=== PATIENT | female | born 1970 | race Caucasian/White ===

== ENCOUNTER 2019-08-21 02:34 | Day surgery (SDC) | payer OTHER, SELFPAY ==
[2019-08-10 18:14] VITALS: BMI 22.5
[2019-08-21] VITALS (7 sets, daily range): BP systolic 104–120; BP diastolic 67–84; PULSE 78–87; RESP 14–18; TEMP 36.7–36.8; O2SAT 99–100; BMI 22.2
--- NOTE | 2019-08-21 08:46 | WPDHPUPDATE1 ---
History and Physical Update Update Date/Time: 08/21/19 08:46 History and Physical has been reviewed, including an updated exam of the patient. There are NO changes in the patient's condition. Risks, benefits, and alternatives have been discussed and questions answered. Patient agrees to proceed with procedure.
[2019-08-21] MEDS: LACTATED RINGERS 1,000 ML 30 ML IV CONT ×2 (12:00→15:46)
--- NOTE | 2019-08-21 12:06 | WPDANESEPPF ---
Anes - Initial Pre Proc Eval Procedure: Operation Date: 08/21/19 13:00 Proposed Procedures p Right Arthroscopic Rotator Cuff Repair, Subacromial Decompression, Possible Repair with Regeneten Collagen Augment - Trevor Feliz MD Date/Time: 08/21/19 12:06 Surgeon: Trevor Feliz MD Pre Op Diagnosis: Right Rotator Cuff Tear Patient Data Age: 49 Gender: F Height: 5 ft 5 in Weight: 61.36 kg Allergies Allergy/AdvReac Type Severity Reaction Status Date / Time No Known Allergies Allergy Verified 08/21/19 11:26 Home Medications Medication Instructions Recorded Confirmed Type clonazepam 0.5 mg tablet 0.5 mg PO DAILY PRN #30 tablet 06/22/19 08/10/19 Rx bupropion HCl 150 mg tablet,12 hr 150 mg PO BID #180 tablet 07/06/19 08/10/19 Rx sustained-release cetirizine 10 mg capsule 10 mg PO DAILY #90 cap 07/06/19 08/10/19 Rx duloxetine 60 mg capsule,delayed 120 mg PO DAILY #60 cap 07/06/19 08/10/19 Rx release omeprazole 40 mg capsule,delayed 40 mg PO DAILY #90 cap 07/06/19 08/10/19 Rx release topiramate 50 mg tablet 50 mg PO TID #270 tablet 07/06/19 08/10/19 Rx azelastine 0.05 % eye drops 1 drop EACH EYE BID #6 ml 07/10/19 08/10/19 Rx Synthroid 88 mcg tablet 88 mcg PO DAILY #30 tablet NS 07/16/19 08/10/19 Rx cefuroxime axetil 500 mg tablet 500 mg PO Q12H #14 tablet 08/17/19 Rx fluconazole 150 mg tablet 150 mg PO ONCE #2 tablet 08/17/19 Rx Patient hx anesthesia problems: none Family hx anesthesia problems: none PMFSH Past Medical History Medical History (Updated 08/21/19 @ 12:07 by Magan Coto MD) Hyperlipidemia Hypothyroidism Surgical History Surgical History History of appendectomy History of hysterectomy (~03/2018) History of tubal ligation (~03/2005) Partial tear of right rotator cuff Family History Family History Mother Patient's mother is , Onset Age: 73 Lung cancer Hypertension Hyperlipidemia Osteoporosis Sibling Patient's sister is in good health Father Hypertension CHF (congestive heart failure) Diabetes mellitus Hyperlipidemia Social History Social History Smoking status: Former smoker Second hand tobacco smoke exposure: No Smoking end date: 07/01/15 Alcohol intake: current Anes - Eval Final PreProcedure Day of Procedure 08/21/19 12:06 Patient weight: normal Heart: regular rate and rhythm Lungs: clear to auscultation Airway: Mallampati scale class 1 Neurological: alert and oriented Last oral intake: >/= 8 hours ASA classification: II Emergent: no Anesthetic plan: proceed Anesthesia type and monitoring: general ETT and standard monitoring Informed Consent: The patient's anesthetic plan and its attendant risks and benefits were discussed with the patient/family/POA. Questions were solicited and answers provided to the satisfaction of the patient/family/POA.
--- NOTE | 2019-08-21 13:21 | WPDHPUPDATE1 ---
History and Physical Update Update Date/Time: 08/21/19 13:21 History and Physical has been reviewed, including an updated exam of the patient. There are NO changes in the patient's condition. Risks, benefits, and alternatives have been discussed and questions answered. Patient agrees to proceed with procedure.
--- NOTE | 2019-08-21 13:30 | WPDANESPNB ---
Anes - Peripheral Nerve Block Date/Time: 08/21/19 13:30 I have discussed with the patient/family/POA the placement of a peripheral nerve block for post-operative pain management, including associated risks, benefits, complications, and side effects. Alternative methods of post-operative analgesia were detailed. Questions were solicited and answers provided to the satisfaction of the patient/family/POA. Time-Out: A pre-procedural Time-Out was completed immediately before starting the procedure and confirmed: Patient Identification, Site, Procedure, Patient Position and the Availability of Requisite Equipment. Clinical Indications: Acute post-operative pain management requested by the operative surgeon. Nerve Block Insertion Note Anes-nerve block: interscalene right Patient position: supine Skin prep: chlorhexidine Needle: 22 gauge, stimulating, insulated echogenic needle. Needle length: 50 mm Technique: ultrasound Injectate: bupivacaine 0.5% with epi 5 mcg/ml (30) and dexamethasone (mg) (8) Observations: tolerated well Complications: none Procedure start time:: 1315 Procedure end time:: 1325
[2019-08-21] MEDS: ceFAZolin 2 GM/D5W 50 ML 2 GM/50 ML BAG IVPB (13:34)
--- NOTE | 2019-08-21 15:52 | P.OP_ITS ---
Procedure Note - Detailed Date of procedure: 08/21/19 Pre-op diagnosis: Right Rotator Cuff Tear Post-op diagnosis: other (Partial thickness tear) Procedure performed: 1. Arthrosocopic rotator cuff repair. 2. Arthroscopic subacromial decompression. Description of procedure: High-grade partial-thickness tear with intrasubstance tearing and partial bursal side tearing. MRI confirmed 40% tear at the supraspinatus. Implants: A Regeneten medium arthroscopic bio-inductive implant was used with CUAUHTEMOC tendon anchors secured medially and peek bone anchors laterally. Anesthesia: GETA Surgeon: Trevor Feliz MD Estimated blood loss (mL): 20 Complications: None Disposition: PACU Findings: Operative detail: Preoperative antibiotics were given. An interscalene block was administered in the preoperative area. The patient was bought brought to the operating room. A general anesthetic was administered. The patient was carefully positioned in the beach chair position. The head and neck were carefully positioned. The non operative extremity was also carefully positioned. The shoulder was prepped and draped in the usual sterile fashion. Examination was performed. No abnormal findings were identified. Standard posterior and anterior arthroscopic portals were established. Inflow achieved with the arthroscopic pump using saline and epinephrine. The glenohumeral joint was carefully inspected. No intraarticular treatment was required. The glenohumeral joint showed no articular cartilage damage. The labrum, biceps, and subscapularis were normal. The supraspinatus and infraspinatus appeared normal. The axillary pouch was benign. Attention was turned to the subacromial space. A complete bursectomy was performed. The bursal side cuff showed 15% tearing. The tissue was very soft suggesting significant intrasubstance in injury. This correlated with the MRI findings. A modest acromioplasty was performed. Accessory lateral portal was used for healing. An accessory anterolateral portal was used for instrumentation. The spinal needle was placed with direct intra-articular visualization, to chelo the anterior supraspinatus. The lateral extent of the tissue graft was marked with the needle device. The tissue collagen implant was inserted. It covered the defect very nicely. Five total CUAUHTEMOC anchors were used to secure the tendon medially. Three peek bone anchors were placed laterally. The construct was very secure. The arthroscopic instruments were removed. The wounds were closed with 3-0 Monocryl subcuticular suture and steri strips. There were no comp lications. A sling was applied and the patient brought to the recovery room.
== END 2019-08-21 18:11 | disposition home or self-care (01) ==
PROVIDERS: PCP Internal Medicine; Visit Provider Orthopaedic Surgery
PROC: (CPT 29805; principal; 2019-08-21 13:00)
DX: M75.101 Unspecified rotator cuff tear or rupture of right shoulder, not specified as traumatic (principal); G89.18 Other acute postprocedural pain; E78.5 Hyperlipidemia, unspecified; E03.9 Hypothyroidism, unspecified; Z87.891 Personal history of nicotine dependence
CPT/HCPCS: 29827; 29826; 64415; A4565; J0131; J0330; J0690; J1100; J2250; J2405; J2704; J3010; J7120

== ENCOUNTER 2019-11-18 16:45 | Outpatient (CLI) | payer OTHER, SELFPAY ==
[2019-11-26 10:36] LABS: Reference Lab Test Result Negative
== END 2019-11-18 16:46 | disposition home or self-care (01) ==
PROVIDERS: PCP Internal Medicine; Visit Provider Physician Assistant
DX: Z01.818 Encounter for other preprocedural examination (principal); Z11.59 Encounter for screening for other viral diseases
CPT/HCPCS: 36415; 86769

== ENCOUNTER 2019-11-20 07:45 | Outpatient (RCR) | payer OTHER, SELFPAY ==
[2019-09-17 13:07] VITALS: BP_SYST 105
--- NOTE | 2019-09-17 14:25 | PTOPEVAL ---
Thank you for referring this patient to [facility]. Please review, sign, date and return this plan of care [place]. Pt referred to therapy following right shoulder surgery 08/21/19. She demonstrates significant limitations of right UE for motion, strength, function and pain. She requires additional skilled therapy 2-3x/wk x 8 wk. I agree with and certify that the following plan of care is medically necessary. Referring Physician Date Attending Provider: Trevor Feliz MD Referring Provider: *PT Outpatient Evaluation Start: 09/17/19 13:07 Freq: Status: Active Protocol: Document 09/17/19 13:07 CAP (Rec: 09/17/19 13:50 CAP [id number]) Therapy Assessment Status Assessment Status Assessment Status Evaluation Outpatient Past Medical History Neurological History Hx Other Neurological Disorders Yes: migraines Cardiovascular History Hx Hypercholesterolemia Yes: not on meds Respiratory History Hx Pneumonia Yes: 2019 Gastrointestinal History Hx Appendectomy Yes: 2012 Genitourinary History Hx Genitourinary Disorders No Significant History Musculoskeletal History Hx Other Musculoskeletal Disorders Yes: right rotator cuff tear 2020 Hematological History Hx Hematological Disorders No Significant History Endocrine History Hx Hypothyroidism Yes: graves disease HEENT History Hx HEENT Disorders No Significant History Integumentary History Hx Skin Disorders No Significant History Reproductive History Hx Hysterectomy Yes Psychosocial History Hx Anxiety Yes Pain History Has Past Pain Affected Your Daily Life Yes: right shoulder pain Effective Methods of Pain Control use of ibuprofen and aleve Anesthesia History Hx Anesthesia Reactions No Significant History Evaluation Information Problem Diagnosis s/p right RTC and removal of bone spur and bursa Onset 08/21/19 Cause stress on right UE Additional Evaluation Detail pt wearing sling at the start of treatment Subjective Information She states she had lawnmower Query Text:As Reported By Patient/ that she had trouble started Family during the summer that caused increased pain. Then she had a dog jump out of the car when she was holding onto the leash . Prior to surgery she was experiencing right UE pain with decreased motion, increased neck pain and right upper arm pain. She has been weaning from the sling at ho
--- NOTE | 2019-09-29 14:53 | PCPTNOTE ---
Patient called & cancelled scheduled appointment this date.
[2019-10-19 12:33] VITALS: BP_SYST 180
--- NOTE | 2019-10-20 08:46 | PTOPEVAL ---
Thank you for referring Ashley Palmer to [facility]. Please review, sign, date and return this plan of care [place]. Pt referred to therapy following rotator cuff surgery. She is progressing with her UE function, shoulder range and strength. She is progressing towards her therapy goals. Recommend additional PT 2x/wk x 4 wk to achieve therapy goals and max function. I agree with and certify that the following plan of care is medically necessary. Referring Physician Date Referring Provider: Trevor Feliz MD *PT Outpatient Evaluation Start: 09/17/19 13:07 Freq: Status: Active Protocol: Document 10/19/19 12:33 CAP (Rec: 10/19/19 13:01 CAP [email or web address]) Therapy Assessment Status Assessment Status Assessment Status Re-evaluation Evaluation Information Problem Diagnosis s/p right RTC and removal of bone spur and bursa Onset 08/21/19 Cause stress on right UE Additional Evaluation Detail She states she had lawnmower that she had trouble started during the summer that caused increased pain. Then she had a dog jump out of the car when she was holding onto the leash . Prior to surgery she was experiencing right UE pain with decreased motion, increased neck pain and right upper arm Subjective Information She reports her right shoulder Query Text:As Reported By Patient/ and arm are painful and sore Family today. She is not sure what caused the increased pain. REports the right shoulder and bicep region remain sore and tender to touch. She reports improved ability to reach with the right UE in all direction, but increased pain. Pain Assessment Timing of Pain Assessment Timing of Pain Assessment Re-assessment Pain Scale Pain Scale Used Numeric (1 - 10) Self Report Pain Assessment Right Upper Arm(s) Reported Pain Level 3 Pain Description Aching,Pulling,Tender on Palpation Pain Frequency Chronic,Continuous Lowest Pain Intensity 1 Greatest Pain Intensity 5 Pain Aggravating Factors Exercise/Activity,Prolonged Position Pain Relief Interventions Used By Heat,Ice Patient
--- NOTE | 2019-11-20 08:53 | PTOPEVAL ---
Thank you for referring Ashley Palmer to [facility]. Please review, sign, date and return this plan of care [place]. Pt has received 12 therapy visits to address impairments related to right shoulder surgery. She is progressing slowly with her UE strength, pain with daily activities, and UE function. She is progressing slowly towards therapy goals. She demonstrates poor posture awareness with impaired GH and scapular position contributing to poor Gh joint and scapulothoracic joint motion. She requires additional skilled therapy 2x/wk x 6 to improve function and achieve goals. I agree with and certify that the following plan of care is medically necessary. Referring Physician Date Attending Provider: Trevor Feliz MD Physical Therapy Re-evaluation *PT Outpatient Evaluation Start: 09/17/19 13:07 Freq: Status: Active Protocol: Document 11/20/19 07:46 CAP (Rec: 11/20/19 08:31 CAP [email or web address]) Therapy Assessment Status Assessment Status Assessment Status Re-evaluation Evaluation Information Problem Diagnosis s/p right RTC and removal of bone spur and bursa Onset 08/21/19 Cause stress on right UE Additional Evaluation Detail She states she had lawnmower that she had trouble started during the summer that caused increased pain. Then she had a dog jump out of the car when she was holding onto the leash . Prior to surgery she was experiencing right UE pain with decreased motion, increased neck pain and right upper arm Subjective Information She had a f/u with her MD that Query Text:As Reported By Patient/ states the shoulder surgery Family is intact. At work she is using a computer. She uses a christiana at home and resistance ex with 2 #. She reports cont pain the right shoulder and bicep region remain sore and tender to touch. She also has increased pain at the AC joint region and upper deltoid region. She reports increased pain and tightness with reaching behind her back. She is struggeling with the sidelying abd motion. Denies problems with reaching overhead. Pain Assessm
--- NOTE | 2019-12-08 08:18 | PCPTNOTE ---
Patient called & cancelled scheduled appointment this date due to work.
--- NOTE | 2019-12-14 13:58 | PCPTNOTE ---
Pt has cancelled her scheduled therapy appointment from 12/02-12/21/19 without rescheduling any f/u visits.
--- NOTE | 2019-12-17 08:00 | PCPTNOTE ---
Admitting Provider: Attending Provider: Trevor Feliz MD Patient:Ashley Palmer Date of :1970 Discharge Note Patient has not returned for any further treatments since 11/20/2019, therefore she will be discharged at this time. Patient?s initial visit was on 09/17/2019 13:00 and she had a total of 12 visits. The goals have been partially met. Thank you for referring this patient to [facility]. Please review, sign, date and return this discharge summary [place]. I have been updated about the patient's current status and I agree with discharge from the above service at this time. Referring Physician Date
== END 2019-12-16 23:59 | disposition home or self-care (01) ==
LOC: ANHPT 07:45
PROVIDERS: PCP Internal Medicine; Visit Provider Orthopaedic Surgery
DX: Z48.89 Encounter for other specified surgical aftercare (principal)
CPT/HCPCS: 97110; 97140; 97162

== ENCOUNTER 2020-01-14 07:36 | Outpatient (CLI) | payer OTHER, SELFPAY ==
[2020-01-14 08:04] LABS: Eosinophils Absolute Auto 0.2 K/mm3 (0-0.3); Eosinophils Percent Auto 4.6 % (0-4.4); Hemoglobin 13.4 g/dL (12.0-15.0); Immature Granulocyte Absolute 0.03 K/mm3 (0.00-0.031); Immature Granulocyte Percent A 0.7 % (0-0.5); Lymphocytes Absolute Auto 1.23 K/mm3 (0.9-3.2); Lymphocytes Percent Auto 29.8 % (18.3-44.2); Mean Corpuscular HGB Conc 32.7 g/dl (32-36); Mean Corpuscular Hemoglobin 28.6 pg (26-34); Mean Corpuscular Volume 87.6 fl (80-100); Mean Platelet Volume 8.8 fl (7.4-10.4); Monocytes Absolute Auto 0.4 K/mm3 (0.1-0.6); Monocytes Percent Auto 9.2 % (2.6-8.5); Neutrophils Absolute Auto 2.3 K/mm3 (1.3-6.7); Neutrophils Percent Auto 54.7 % (45.5-73.1); Platelet Count Result 214 k/mm3 (150-375); Red Blood Count 4.68 M/mm3 (4.2-5.4); Red Cell Distribution Width 13.2 % (11.5-14.5); White Blood Count 4.1 K/mm3 (4.5-10.0)
[2020-01-14 08:26] LABS: Alanine Aminotransferase 15 U/L (4-35); Albumin Level 4.1 g/dL (3.5-5.1); Alkaline Phosphatase 43 U/L (38-126); Aspartate Amino Transferase 24 U/L (14-36); Bilirubin,Total 0.3 mg/dL (0.2-1.3); Blood Urea Nitrogen 18 mg/dL (7-17); Calcium 8.8 mg/dL (8.4-10.2); Carbon Dioxide 26 mmol/L (22-30); Chloride 108 mmol/L (98-107); Cholesterol 240 mg/dL (0-200); Estimated Glomerular Filt Rate > 60; Glucose 85 mg/dL (65-105); HDL Direct 89 mg/dL; Potassium 4.1 mmol/L (3.4-5.0); Sodium 141 mmol/L (137-145); Triglycerides 38 mg/dL (<150)
[2020-01-14 08:32] LABS: Iron 95 ug/dL (37-170)
[2020-01-14 08:36] LABS: LDL Cholesterol Direct 122 mg/dL
[2020-01-14 08:41] LABS: Percent Iron Saturation 28 % (20-50)
[2020-01-14 09:06] LABS: Free T4 Free Thyroxine 0.94 ng/mL (0.78-2.19); Vitamin D 25 Hydroxy 27.2 ng/mL
[2020-01-14 09:32] LABS: Folic Acid 11.6 ng/mL (2.76->20)
[2020-01-17 23:12] LABS: FSH 82.4 mIU/mL (***)
[2020-01-22 14:41] LABS: Estradiol, Ultrasensitive 7 pg/mL
== END 2020-01-14 07:37 | disposition home or self-care (01) ==
PROVIDERS: PCP Internal Medicine; Visit Provider Internal Medicine
DX: R53.83 Other fatigue (principal); N95.1 Menopausal and female climacteric states; D64.9 Anemia, unspecified; E78.5 Hyperlipidemia, unspecified; E03.9 Hypothyroidism, unspecified; R79.89 Other specified abnormal findings of blood chemistry
CPT/HCPCS: 36415; 80053; 80061; 82306; 82607; 82670; 82746; 83001; 83540; 83550; 84439; 84443; 85025

== ENCOUNTER 2020-05-23 12:09 | Outpatient (CLI) | payer OTHER, SELFPAY ==
--- NOTE | ~2020-05-23 | XR_ITS ---
EXAMINATION: XR foot LT min 3V EXAM DATE: 05/23/2020 12:27 INDICATION: No known recent injury provided at this time. Pain of the left foot, 4th 5th metatarsal r egion. TECHNIQUE: Left foot dorsoplantar, lateral and oblique projections obtained and reviewed. There is n o prior study for comparison. FINDINGS: Left metatarsal bones unremarkable. No periosteal reaction or band of sclerosis to sugges t subacute stress fracture. There are no bony erosions identified. There are no acute fractures or d islocations identified. There is no subcutaneous gas. The soft tissue is unremarkable. There are no radiopaque foreign bodies. IMPRESSION: 1. Unremarkable XR foot LT min 3V exam. Reviewed, dictated and finalized at location B. STAMP OPERATOR
== END 2020-05-23 12:10 | disposition home or self-care (01) ==
PROVIDERS: PCP Internal Medicine; Visit Provider Internal Medicine
DX: M25.572 Pain in left ankle and joints of left foot (principal)
CPT/HCPCS: 73630

== ENCOUNTER 2020-05-31 08:19 | Outpatient (CLI) | payer OTHER, SELFPAY ==
[2020-05-31 08:49] LABS: Basophils Percent Auto 0.7 % (0.2-1.2); Eosinophils Absolute Auto 0.1 K/mm3 (0-0.3); Eosinophils Percent Auto 2.5 % (0-4.4); Hematocrit 34.9 % (37.0-47.0); Hemoglobin 10.8 g/dL (12.0-15.0); Immature Granulocyte Absolute 0.01 K/mm3 (0.00-0.031); Immature Granulocyte Percent A 0.2 % (0-0.5); Lymphocytes Absolute Auto 1.35 K/mm3 (0.9-3.2); Lymphocytes Percent Auto 30.9 % (18.3-44.2); Mean Corpuscular HGB Conc 30.9 g/dl (32-36); Mean Corpuscular Hemoglobin 23.9 pg (26-34); Mean Corpuscular Volume 77.2 fl (80-100); Mean Platelet Volume 9.2 fl (7.4-10.4); Monocytes Absolute Auto 0.6 K/mm3 (0.1-0.6); Monocytes Percent Auto 13.3 % (2.6-8.5); Neutrophils Absolute Auto 2.3 K/mm3 (1.3-6.7); Neutrophils Percent Auto 52.4 % (45.5-73.1); Platelet Count Result 276 k/mm3 (150-375); Red Blood Count 4.52 M/mm3 (4.2-5.4); White Blood Count 4.4 K/mm3 (4.5-10.0)
[2020-05-31 09:08] LABS: Alanine Aminotransferase 21 U/L (4-35); Albumin Level 4.1 g/dL (3.5-5.1); Alkaline Phosphatase 48 U/L (38-126); Anion Gap 4 mmol/L (8-16); Aspartate Amino Transferase 30 U/L (14-36); Bilirubin,Total 0.4 mg/dL (0.2-1.3); Blood Urea Nitrogen 18 mg/dL (7-17); Calcium 9.6 mg/dL (8.4-10.2); Carbon Dioxide 32 mmol/L (22-30); Chloride 103 mmol/L (98-107); Estimated Glomerular Filt Rate > 60; Glucose 73 mg/dL (65-105); Potassium 4.3 mmol/L (3.4-5.0); Sodium 139 mmol/L (137-145)
[2020-05-31 09:36] LABS: Thyroid Stimulating Hormone 0.148 uIU/mL (0.465-4.680)
[2020-05-31 09:45] LABS: Free T4 Free Thyroxine 1.26 ng/mL (0.78-2.19)
[2020-05-31 10:16] LABS: Erythrocyte Sedimentation Rate 15 mm/hr (0-20)
[2020-05-31 15:18] LABS: Iron 29 ug/dL (37-170)
[2020-05-31 15:27] LABS: Percent Iron Saturation 6 % (20-50)
[2020-05-31 15:32] LABS: D Dimer 0.31 ug/mL (<0.48)
== END 2020-05-31 08:20 | disposition home or self-care (01) ==
PROVIDERS: PCP Internal Medicine; Visit Provider Internal Medicine
DX: E03.9 Hypothyroidism, unspecified (principal); R51.9 Headache, unspecified; R53.83 Other fatigue; R00.2 Palpitations; D64.9 Anemia, unspecified
CPT/HCPCS: 36415; 80053; 82607; 82746; 83540; 83550; 84439; 84443; 85025; 85380; 85652; 86038; 86039

== ENCOUNTER 2020-06-14 12:04 | Outpatient (CLI) | payer OTHER, SELFPAY ==
[2020-06-14 13:23] LABS: Vitamin D 25 Hydroxy 44.5 ng/mL
== END 2020-06-14 12:05 | disposition home or self-care (01) ==
LOC: ANHLAB 12:05
PROVIDERS: PCP Internal Medicine; Visit Provider Physician Assistant
DX: E55.9 Vitamin D deficiency, unspecified (principal)
CPT/HCPCS: 36415; 82306

== ENCOUNTER 2020-07-07 11:03 | Outpatient (CLI) | payer OTHER, SELFPAY ==
--- NOTE | ~2020-07-07 | MM_ITS ---
EXAMINATION: MM screening [place] BI w dorina HISTORY: Screening mammogram TECHNIQUE: Craniocaudal and mediolateral oblique 3-D tomosynthesis images were obtained and synthetic 2-D images were generated. CAD analysis was submitted and interpreted. COMPARISON: 08/28/2017 BREAST PARENCHYMAL COMPOSITION: There are scattered areas of fibroglandular density. FINDINGS: There is no evidence of suspicious mass, calcification, or architectural distortion to sugg est malignancy in either breast. There has been no suspicious interval change. IMPRESSION: 1. No mammographic evidence of malignancy. 2. Recommend routine screening mammography in one year. BI-RADS Category 1: Negative Reviewed, dictated and finalized at location A. UCT DEVELOPER
== END 2020-07-07 11:04 | disposition home or self-care (01) ==
PROVIDERS: PCP Internal Medicine; Visit Provider Internal Medicine
DX: Z12.31 Encounter for screening mammogram for malignant neoplasm of breast (principal)
CPT/HCPCS: 77063; 77067

== ENCOUNTER 2020-08-30 12:06 | Outpatient (CLI) | payer OTHER, SELFPAY ==
--- NOTE | ~2020-08-30 | XR_ITS ---
EXAMINATION: XR hand LT min 3V DATE: 08/30/2020 12:25 INDICATION: Left hand pain. TECHNIQUE: 3 views of left hand were obtained. COMPARISON: None. FINDINGS: Bone alignment is normal. No fracture. There is mild osteoarthritis of first carpometacarpa l joint. IMPRESSION: 1. Mild osteoarthritis of first carpometacarpal joint. Reviewed, dictated and finalized at location A. TITATIVE ASSOCIATE
== END 2020-08-30 12:07 | disposition home or self-care (01) ==
LOC: ANHIMG 12:15
PROVIDERS: PCP Internal Medicine; Visit Provider Physician Assistant
DX: M19.042 Primary osteoarthritis, left hand (principal)
CPT/HCPCS: 73130

== ENCOUNTER 2020-10-25 10:59 | Outpatient (CLI) | payer OTHER, SELFPAY ==
[2020-10-25 11:27] LABS: Basophils Absolute Auto 0.1 K/mm3 (0.0-0.1); Eosinophils Absolute Auto 0.5 K/mm3 (0-0.3); Eosinophils Percent Auto 10.6 % (0-4.4); Hematocrit 42.9 % (37.0-47.0); Hemoglobin 14.1 g/dL (12.0-15.0); Immature Granulocyte Absolute 0.02 K/mm3 (0.00-0.031); Immature Granulocyte Percent A 0.4 % (0-0.5); Lymphocytes Absolute Auto 1.85 K/mm3 (0.9-3.2); Lymphocytes Percent Auto 36.9 % (18.3-44.2); Mean Corpuscular HGB Conc 32.9 g/dl (32-36); Mean Corpuscular Volume 88.3 fl (80-100); Mean Platelet Volume 8.9 fl (7.4-10.4); Monocytes Absolute Auto 0.4 K/mm3 (0.1-0.6); Monocytes Percent Auto 8.4 % (2.6-8.5); Neutrophils Absolute Auto 2.2 K/mm3 (1.3-6.7); Neutrophils Percent Auto 42.7 % (45.5-73.1); Platelet Count Result 247 k/mm3 (150-375); Red Blood Count 4.86 M/mm3 (4.2-5.4)
[2020-10-25 11:38] LABS: Alanine Aminotransferase 23 U/L (4-35); Albumin Level 4.5 g/dL (3.5-5.1); Alkaline Phosphatase 45 U/L (38-126); Anion Gap 6 mmol/L (8-16); Aspartate Amino Transferase 35 U/L (14-36); Bilirubin,Total 0.5 mg/dL (0.2-1.3); Blood Urea Nitrogen 14 mg/dL (7-17); Calcium 9.2 mg/dL (8.4-10.2); Carbon Dioxide 29 mmol/L (22-30); Chloride 105 mmol/L (98-107); Cholesterol 230 mg/dL (0-200); Estimated Glomerular Filt Rate > 60; Glucose 85 mg/dL (65-105); HDL Direct 94 mg/dL; Potassium 4.2 mmol/L (3.4-5.0); Sodium 140 mmol/L (137-145); Triglycerides 56 mg/dL (<150)
[2020-10-25 11:49] LABS: LDL Cholesterol Direct 114 mg/dL
[2020-10-25 12:08] LABS: Thyroid Stimulating Hormone 0.236 uIU/mL (0.465-4.680)
[2020-10-25 12:19] LABS: Iron 110 ug/dL (37-170)
[2020-10-25 12:31] LABS: Percent Iron Saturation 36 % (20-50)
[2020-10-25 12:42] LABS: Free T4 Free Thyroxine 1.01 ng/mL (0.78-2.19)
[2020-11-02 00:11] LABS: Anti Nuclear Antibody Titer 1:40 (Negative)
== END 2020-10-25 11:00 | disposition home or self-care (01) ==
PROVIDERS: PCP Internal Medicine; Visit Provider Internal Medicine
DX: D64.9 Anemia, unspecified (principal); R76.8 Other specified abnormal immunological findings in serum; E03.9 Hypothyroidism, unspecified; R53.83 Other fatigue; E78.5 Hyperlipidemia, unspecified
CPT/HCPCS: 36415; 80053; 80061; 83540; 83550; 84439; 84443; 85025; 86038; 86039

== ENCOUNTER 2020-11-11 10:05 | Outpatient (CLI) | payer OTHER, SELFPAY ==
[2020-11-11 10:38] LABS: Complement C3 85 mg/dL (88-165)
[2020-11-16 18:43] LABS: Anti Cardio Antibody IgM <12 MPL (<=12); Anti Cardiolipin Antibody IgA <11 APL (<=11); Anti Cardiolipin Antibody IgG <14 GPL (<=14)
[2020-11-16 21:08] LABS: Anti Cyclic Citrullinated Pept <16 Units (<20)
[2020-11-21 22:13] LABS: SS-A <1.0; SS-B <1.0
[2020-11-22 12:04] LABS: SM Antibody <1.0; SM/RNP Antibody <1.0
== END 2020-11-11 10:06 | disposition home or self-care (01) ==
PROVIDERS: PCP Internal Medicine; Visit Provider Internal Medicine
DX: R76.8 Other specified abnormal immunological findings in serum (principal); M19.90 Unspecified osteoarthritis, unspecified site
CPT/HCPCS: 36415; 86147; 86160; 86200; 86225; 86235

== ENCOUNTER 2021-03-08 16:31 | Outpatient (CLI) | payer OTHER, SELFPAY ==
[2021-03-08 17:45] LABS: Add Urine Microscopic? NO; Appearance Urine Clear (Clear); Bilirubin Urine Negative (Negative); Blood Urine Negative (Negative); Color Urine Straw (Yellow); Glucose Urine UA Negative (Negative); Ketones Urine Negative (Negative); Leukocyte Esterase Ur Negative LEU/UL (NEGATIVE); Nitrate Urine Negative (Negative); Protein Urine Negative (Negative); Urobilinogen Urine Negative mg/dL (<2.0)
[2021-03-08 17:57] LABS: Specific Grav Ur 1.004 (1.001-1.035)
[2021-03-08 18:01] LABS: Free T4 Free Thyroxine 0.63 ng/mL (0.78-2.19)
== END 2021-03-08 16:32 | disposition home or self-care (01) ==
LOC: ANHLAB 16:33
PROVIDERS: PCP Internal Medicine; Visit Provider Physician Assistant
DX: R30.0 Dysuria (principal); E03.9 Hypothyroidism, unspecified
CPT/HCPCS: 36415; 81003; 84439; 84443; 87086; 87088

== ENCOUNTER 2021-05-01 12:15 | Outpatient (CLI) | payer OTHER, SELFPAY ==
[2021-05-01 14:50] LABS: Thyroid Stimulating Hormone 0.264 uIU/mL (0.465-4.680)
[2021-05-01 14:53] LABS: Free T4 Free Thyroxine 0.94 ng/mL (0.78-2.19)
== END 2021-05-01 12:16 | disposition home or self-care (01) ==
LOC: ANHLAB 12:17
PROVIDERS: PCP Internal Medicine; Visit Provider Physician Assistant
DX: E03.9 Hypothyroidism, unspecified (principal)
CPT/HCPCS: 36415; 84439; 84443

== ENCOUNTER 2021-09-21 11:56 | Outpatient (CLI) | payer OTHER, SELFPAY ==
--- NOTE | ~2021-09-21 | MMUS_ITS ---
EXAMINATION: MM diagnostic [place] BI w dorina, US breast RT complete HISTORY: Right axillary lump TECHNIQUE: ML, MLO and CC 3-D tomosynthesis images of both breasts were performed and synthetic 2-D i mages were generated. CAD analysis was submitted and interpreted. High resolution complete right [address] st ultrasound including all 4 quadrants, subareolar and axillary areas was performed. COMPARISON: 07/07/2020, 08/28/2017 bilateral screening mammogram examinations BREAST PARENCHYMAL COMPOSITION: There are scattered areas of fibroglandular density. FINDINGS: MAMMOGRAPHIC FINDINGS: No suspicious mass or architectural distortion, malignant calcification, skin thickening or retractio n or significant new or developing density is detected. ULTRASOUND: No suspicious mass, shadowing, cyst or other significant sonographic abnormality of the right breast were right axillary region is noted. IMPRESSION: 1. No mammographic evidence of malignancy 2. Routine mammographic screening is recommended BI-RADS Category 1: Negative Reviewed, dictated and finalized at location A. IMPRESSION: 1. No mammographic evidence of malignancy 2. Routine mammographic screening is recommended BI-RADS Category 1: Negative
== END 2021-09-21 11:57 | disposition home or self-care (01) ==
PROVIDERS: Visit Provider Nurse Practitioner Obstetrics & Gynecology
DX: N64.4 Mastodynia (principal)
CPT/HCPCS: 76641; 77062; 77066; G0279

== ENCOUNTER 2021-10-12 12:40 | Outpatient (CLI) | payer OTHER, SELFPAY ==
[2021-10-12 13:02] LABS: Basophils Percent Auto 0.7 % (0.2-1.2); Eosinophils Absolute Auto 0.2 K/mm3 (0-0.3); Eosinophils Percent Auto 2.9 % (0-4.4); Hematocrit 45.6 % (37.0-47.0); Hemoglobin 14.9 g/dL (12.0-15.0); Immature Granulocyte Absolute 0.03 K/mm3 (0.00-0.031); Immature Granulocyte Percent A 0.5 % (0-0.5); Lymphocytes Percent Auto 29.2 % (18.3-44.2); Mean Corpuscular HGB Conc 32.7 g/dl (32-36); Mean Corpuscular Hemoglobin 29.6 pg (26-34); Mean Corpuscular Volume 90.5 fl (80-100); Mean Platelet Volume 8.5 fl (7.4-10.4); Monocytes Absolute Auto 0.5 K/mm3 (0.1-0.6); Monocytes Percent Auto 8.6 % (2.6-8.5); Neutrophils Absolute Auto 3.2 K/mm3 (1.3-6.7); Neutrophils Percent Auto 58.1 % (45.5-73.1); Platelet Count Result 260 k/mm3 (150-375); Red Blood Count 5.04 M/mm3 (4.2-5.4); Red Cell Distribution Width 12.4 % (11.5-14.5); White Blood Count 5.5 K/mm3 (4.5-10.0)
[2021-10-12 13:10] LABS: Appearance Urine Clear (Clear); Bilirubin Urine Negative (Negative); Blood Urine Negative (Negative); Color Urine Yellow (Yellow); Glucose Urine UA Negative (Negative); Ketones Urine Negative (Negative); Leukocyte Esterase Ur Negative LEU/UL (Negative); Nitrate Urine Negative (Negative); Protein Urine Negative (Negative); Specific Grav Ur 1.015 (1.001-1.035); Urobilinogen Urine 0.2 mg/dL (<2.0); pH Urine 6.5 (5.0-9.0)
[2021-10-12 13:14] LABS: Complement C3 111 mg/dL (88-165)
[2021-10-12 13:14] LABS: Add Urine Microscopic? NO
[2021-10-12 13:30] LABS: Alanine Aminotransferase 58 U/L (4-35); Albumin Level 4.7 g/dL (3.5-5.1); Alkaline Phosphatase 47 U/L (38-126); Anion Gap 3 mmol/L (8-16); Aspartate Amino Transferase 55 U/L (14-36); Bilirubin,Total 0.4 mg/dL (0.2-1.3); Blood Urea Nitrogen 14 mg/dL (7-17); CRP < 0.5 mg/dL (<1.0); Calcium 8.9 mg/dL (8.4-10.2); Carbon Dioxide 31 mmol/L (22-30); Chloride 101 mmol/L (98-107); Estimated Glomerular Filt Rate > 60; Glucose 76 mg/dL (65-110); Potassium 3.9 mmol/L (3.4-5.0); Sodium 135 mmol/L (137-145)
[2021-10-12 14:14] LABS: Erythrocyte Sedimentation Rate 5 mm/hr (0-20)
[2021-10-17 21:42] LABS: Hexagonal Phase Confirm Positive (Negative)
[2021-10-17 22:14] LABS: Lupus dRVVT 1:1 Mix Interpreta Not Indicated; Lupus dRVVT Screen 38 sec (<=45); PTT-LA Screen 43 sec (<=40)
== END 2021-10-12 12:41 | disposition home or self-care (01) ==
PROVIDERS: PCP Internal Medicine; Visit Provider Internal Medicine
DX: M19.90 Unspecified osteoarthritis, unspecified site (principal); M79.641 Pain in right hand; M79.642 Pain in left hand; R76.8 Other specified abnormal immunological findings in serum
CPT/HCPCS: 36415; 80053; 81001; 81003; 85025; 85598; 85613; 85652; 85670; 85730; 86140; 86160

== ENCOUNTER 2021-10-19 11:29 | Outpatient (CLI) | payer OTHER, SELFPAY ==
--- NOTE | ~2021-10-19 | XR_ITS ---
EXAMINATION: XR wrist LT min 3V DATE: 10/19/2021 11:41 INDICATION: Left wrist pain post injury TECHNIQUE: Posteroanterior, ulnar deviation, oblique, and lateral views of the left wrist were obtain ed. COMPARISON: Left hand radiograph dated 08/30/2020 FINDINGS: Alignment is normal. No fracture. Joint spaces are normal. Soft tissues are unremarkable. IMPRESSION: 1. Negative left wrist radiographs. Reviewed, dictated and finalized at location A.
== END 2021-10-19 11:30 | disposition home or self-care (01) ==
PROVIDERS: PCP Internal Medicine; Visit Provider Internal Medicine
DX: M25.532 Pain in left wrist (principal)
CPT/HCPCS: 73110

== ENCOUNTER 2021-12-25 16:29 | Outpatient (CLI) | payer OTHER, SELFPAY ==
--- NOTE | ~2021-12-25 | XR_ITS ---
XR_CERV2-3V_CR DATE: 12/25/2021 17:04 INDICATION: Headaches. No injury. TECHNIQUE: AP, open-mouth, odontoid and lateral views COMPARISON: August 21, 2018 cervical spine FINDINGS: There is straightening of the cervical spine. Normal alignment of the cervical spine. C1 an d C2 are normally aligned and the odontoid process is intact. No fracture or dislocation or locked fa cet or prevertebral soft tissue swelling. Minimal degenerative disc disease at C4-5 and C5-6. IMPRESSION: Minimal degenerative disc disease at C4-5 and C5-C6 Straightening Reviewed, dictated and finalized at Location A. Reviewed, dictated and finalized at location B.
--- NOTE | ~2021-12-25 | XR_ITS ---
XR lumbar spine 6V w bending 12/25/2021 17:05 Indication: Low back pain Procedure: 7 views lumbar spine including flexion/extension views Comparison: 08/21/2018 Findings: There is disc narrowing at L5-S1. There is a limbus vertebra at L5. No fracture or traumati c malalignment. No significant alteration of alignment with flexion/extension. Remainder of the disc heights are preserved. No evidence for spondylolisthesis or spondylolysis. There is mild lower lumbar facet hypertrophy. No fracture or traumatic malalignment. Sacral foramen are symmetric. Impression: 1: Stable mild lumbar spondylosis. Reviewed, dictated and finalized at location A. Impression: 1: Stable mild lumbar spondylosis.
== END 2021-12-25 16:30 | disposition home or self-care (01) ==
LOC: ANHIMG 16:32
PROVIDERS: PCP Internal Medicine; Visit Provider Internal Medicine
DX: R51.9 Headache, unspecified (principal); M47.896 Other spondylosis, lumbar region
CPT/HCPCS: 72040; 72114

== ENCOUNTER 2021-12-28 07:12 | Outpatient (CLI) | payer OTHER, SELFPAY ==
[2021-12-28 07:33] LABS: Basophils Percent Auto 0.8 % (0.2-1.2); Eosinophils Absolute Auto 0.4 K/mm3 (0-0.3); Eosinophils Percent Auto 7.3 % (0-4.4); Hematocrit 43.7 % (37.0-47.0); Hemoglobin 14.1 g/dL (12.0-15.0); Immature Granulocyte Absolute 0.02 K/mm3 (0.00-0.031); Immature Granulocyte Percent A 0.4 % (0-0.5); Lymphocytes Absolute Auto 1.42 K/mm3 (0.9-3.2); Lymphocytes Percent Auto 28.6 % (18.3-44.2); Mean Corpuscular HGB Conc 32.3 g/dl (32-36); Mean Corpuscular Volume 89.9 fl (80-100); Mean Platelet Volume 9.1 fl (7.4-10.4); Monocytes Absolute Auto 0.4 K/mm3 (0.1-0.6); Monocytes Percent Auto 8.9 % (2.6-8.5); Neutrophils Absolute Auto 2.7 K/mm3 (1.3-6.7); Platelet Count Result 256 k/mm3 (150-375); Red Blood Count 4.86 M/mm3 (4.2-5.4); Red Cell Distribution Width 12.4 % (11.5-14.5)
[2021-12-28 07:53] LABS: Alanine Aminotransferase 20 U/L (6-35); Albumin Level 4.2 g/dL (3.5-5.1); Alkaline Phosphatase 45 U/L (38-126); Anion Gap 5 mmol/L (8-16); Aspartate Amino Transferase 28 U/L (14-36); Bilirubin,Total 0.4 mg/dL (0.2-1.3); Blood Urea Nitrogen 16 mg/dL (7-17); Calcium 8.6 mg/dL (8.4-10.2); Carbon Dioxide 31 mmol/L (22-30); Chloride 102 mmol/L (98-107); Cholesterol 248 mg/dL (0-200); Estimated Glomerular Filt Rate 58; Glucose 89 mg/dL (65-110); HDL Direct 85 mg/dL; Potassium 4.4 mmol/L (3.4-5.0); Sodium 138 mmol/L (137-145); Triglycerides 42 mg/dL (<150)
[2021-12-28 07:54] LABS: Iron 123 ug/dL (37-170)
[2021-12-28 08:04] LABS: LDL Cholesterol Direct 123 mg/dL
[2021-12-28 08:07] LABS: Percent Iron Saturation 30 % (20-50)
[2021-12-28 08:22] LABS: Thyroid Stimulating Hormone 0.109 uIU/mL (0.465-4.680)
[2021-12-28 08:28] LABS: Free T4 Free Thyroxine 0.99 ng/mL (0.78-2.19)
[2021-12-28 09:28] LABS: Folic Acid > 20.0 ng/mL (2.76->20); Vitamin D 25 Hydroxy 55.1 ng/mL
[2022-01-01 12:10] LABS: Mitochondrial (M2) Ab (IgG) <=20.0 U (<=20.0)
== END 2021-12-28 07:13 | disposition home or self-care (01) ==
LOC: ANHLAB 07:13
PROVIDERS: PCP Internal Medicine; Visit Provider Internal Medicine
DX: E03.9 Hypothyroidism, unspecified (principal); E78.5 Hyperlipidemia, unspecified; E55.9 Vitamin D deficiency, unspecified; D64.9 Anemia, unspecified
CPT/HCPCS: 36415; 80053; 80061; 82306; 82607; 82746; 83520; 83540; 83550; 84439; 84443; 85025

== ENCOUNTER 2022-01-10 08:25 | Outpatient (CLI) | payer OTHER, SELFPAY ==
[2022-01-10 08:49] LABS: Appearance Urine Clear (Clear); Bilirubin Urine Negative (Negative); Blood Urine Negative (Negative); Color Urine Yellow (Yellow); Glucose Urine UA Negative (Negative); Ketones Urine Negative (Negative); Leukocyte Esterase Ur Negative LEU/UL (Negative); Nitrate Urine Negative (Negative); Protein Urine Negative (Negative); Urobilinogen Urine 0.2 mg/dL (<2.0)
[2022-01-10 09:17] LABS: Add Urine Microscopic? NO
== END 2022-01-10 08:26 | disposition home or self-care (01) ==
LOC: ANHLAB 08:27
PROVIDERS: PCP Internal Medicine; Visit Provider Internal Medicine
DX: R30.0 Dysuria (principal)
CPT/HCPCS: 81003

== ENCOUNTER 2022-02-05 08:03 | Outpatient (CLI) | payer OTHER, SELFPAY ==
--- NOTE | ~2022-02-05 | XR_ITS ---
XR hip LT min 2V DATE: 02/05/2022 08:27 INDICATION: Left lateral hip pain; no injury. TECHNIQUE: AP, lateral and crosstable lateral views of left hip COMPARISON: None FINDINGS: Mild soft tissue calcification is noted at the lateral aspect of the greater trochanter of the proximal left femur. No fracture or dislocation, avascular necrosis or bone destruction. Left hip joint space appears well preserved. The pubic symphysis and sacroiliac joints are intact. IMPRESSION: Mild soft tissue calcification at lateral aspect of greater trochanter No fracture, dislocation, avascular necrosis, bone destruction or significant degenerative change at the left hip Reviewed, dictated and finalized at location B. IMPRESSION: Mild soft tissue calcification at lateral aspect of greater trochan ter No fracture, dislocation, avascular necrosis, bone destruction or significant d egenerative change at the left hip
== END 2022-02-05 08:04 | disposition home or self-care (01) ==
PROVIDERS: PCP Internal Medicine; Visit Provider Internal Medicine
DX: M25.552 Pain in left hip (principal)
CPT/HCPCS: 73502

== ENCOUNTER 2022-03-17 12:44 | Emergency (ER) | payer OTHER, SELFPAY ==
--- NOTE | ~2022-03-17 | XR_ITS ---
EXAMINATION: XR toe 1st LT min 2V DATE: 03/17/2022 13:11 INDICATION: Left great toe pain. TECHNIQUE: 4 views of left great toe were obtained. COMPARISON: Left foot radiographs 05/23/2020 FINDINGS: Bone alignment is normal. No fracture. There is mild osteoarthritis of first metatarsophala ngeal joint. IMPRESSION: 1. Mild osteoarthritis of first metatarsophalangeal joint. Reviewed, dictated and finalized at location A.
[2022-03-17 13:03] VITALS: BP 125/80; PULSE 85; RESP 18; TEMP 36.6; O2SAT 100
--- NOTE | 2022-03-17 13:30 | ED.GENADULT ---
HPI - General Adult General Chief complaint: Extremity Injury, Lower Stated complaint: lt great toe injury History of Present Illness HPI narrative: Mrs Palmer is a plesant 51 y/o female. PMHx Hypothyroid, Dyslipidemia, OA. 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 Client reports to have been walking, suffered a mechanical injury, 'stubbed' LT great toe on lip of concrete step. -No prodromal deficits. -Increased pain to area, worse with ambulation or touch. -Small LT great toenail avulsion, no concern for FB. -No loss of lower extremity sensation or control. -No open Fxs. -Non-diabetic. -No falls or additional injury has been identified. Patient has taken home OTC IBU MUD MILL TENDER, mild reliefs. No additional acute c/o upon PE. Related Data Home Medications Medication Instructions Recorded Confirmed estradiol 1 mg tablet 1 mg PO DAILY 05/31/20 02/01/22 progesterone micronized 100 mg 100 mg PO QAM 05/31/20 02/01/22 capsule (Prometrium) multivitamin with minerals 4 tablet PO DAILY 12/28/21 02/01/22 (Hair,Skin and Nails tablet) Allergies Allergy/AdvReac Type Severity Reaction Status Date / Time No Known Allergies Allergy Verified 03/17/22 13:28 Review of Systems Review of Systems: MUSCULOSKELETAL: Positive LT great toe injury/pain. Denies additional back pain, joint pain, or myalgia. NEUROLOGIC: Denies numbness, or focal weakness. REMAINDER OF ROS REVIEWED: Negative. [facility] Past Medical History Medical History Bilateral hand pain Bilateral hand pain CMC arthritis COVID-19 Hyperlipidemia Hypothyroidism Other specified aftercare following surgery Seronegative rheumatoid arthritis of multiple sites Surgical History Surgical History History of appendectomy History of hysterectomy (~03/2018) History of tubal ligation (~03/2005) Partial tear of right rotator cuff Family History Family History Mother Patient's mother is , Onset Age: 73 Lung cancer Hypertension Hyperlipidemia Osteoporosis Sibling Patient's sister is in good health Father Hypertension CHF (congestive heart failure) Diabetes mellitus Hyperlipidemia Social History Social History Smoking status: Former smoker Second hand tobacco smoke exposure: No Smoking end date: 07/01/15 Alcohol intake: current Substance use: never Exam Narrative: GENERAL: This is a well-nourished, well-developed adult, in no apparent distress. HEAD: normocephalic, atraumatic. EYES: Sclera clear/white. NECK: Neck supple. CARDIOVASCULAR: Regular rate and rhythm. Strong pulses LLE, all sites. RESPIRATORY: Clear to auscultation. NEURO: Alert & age appropriate. No focal neurologic deficits. Good sensation and discrimination LLE. EXTREMITIES: With soft tissue tenderness and mild swelling overlying LT great PIP/MTP. ROM limited 2/2 pain. No open Fx or obvious deformity. There is a small LT toenail corner avulsion involving distal free plate, this does does not extend or disrupt central plate or lunula. Minimal bleeding, controlled. Remainder of musculoskeletal exam is negative. Course Course Level of Care: Express Care Visit Vital Signs Vital signs: Vital Signs Temperature 36.6 C 03/17/22 13:03 Pulse Rate 85 03/17/22 13:03 Respiratory Rate 18 03/17/22 13:03 Blood Pressure 125/80 03/17/22 13:03 Pulse Oximetry 100 03/17/22 13:03 Oxygen Delivery Room Air 03/17/22 13:03 Temperature 36.6 C 03/17/22 13:03 Pulse Rate 85 03/17/22 13:03 Respiratory Rate 18 03/17/22 13:03 Blood Pressure 125/80 03/17/22 13:03 Pulse Oximetry 100 03/17/22 13:03 Oxygen Delivery Room Air 03/17/22 13:03
== END 2022-03-17 13:42 | disposition home or self-care (01) ==
PROVIDERS: Emergency Provider Nurse Practitioner Adult Health; PCP Internal Medicine
DX: S93.502A Unspecified sprain of left great toe, initial encounter (principal); S91.202A Unspecified open wound of left great toe with damage to nail, initial encounter; W22.09XA Striking against other stationary object, initial encounter; Z87.891 Personal history of nicotine dependence; E78.5 Hyperlipidemia, unspecified; E03.9 Hypothyroidism, unspecified; M06.09 Rheumatoid arthritis without rheumatoid factor, multiple sites
CPT/HCPCS: 73660; 99213; G0463

== ENCOUNTER 2022-05-09 12:55 | Outpatient (CLI) | payer OTHER, SELFPAY ==
--- NOTE | ~2022-05-09 | XR_ITS ---
EXAMINATION: XR sinus min 3V INDICATION: Deviated septum TECHNIQUE: Five views of the paranasal sinuses are obtained. COMPARISON: None available FINDINGS: There is 1 mm of rightward displacement of the nasal septum. The frontal sinuses appear to be relatively hypoplastic. The remaining paranasal sinuses appear to be well aerated. No facial fract ure is identified. Mild to moderate cervical spondylosis is noted. IMPRESSION: 1. 1 mm of rightward displacement of the nasal septum. Reviewed, dictated and finalized at location B. INSPECTOR
== END 2022-05-09 12:56 | disposition home or self-care (01) ==
LOC: ANHIMG 12:57
PROVIDERS: PCP Internal Medicine; Visit Provider Internal Medicine
DX: J34.2 Deviated nasal septum (principal)
CPT/HCPCS: 70220

== ENCOUNTER 2022-06-04 07:14 | Outpatient (CLI) | payer OTHER, SELFPAY ==
[2022-06-04 12:41] LABS: Thyroid Stimulating Hormone 0.459 uIU/mL (0.465-4.680)
[2022-06-06 08:58] LABS: Basophils Percent Auto 0.6 % (0.2-1.2); Eosinophils Absolute Auto 0.1 K/mm3 (0-0.3); Hematocrit 46.7 % (37.0-47.0); Hemoglobin 14.6 g/dL (12.0-15.0); Immature Granulocyte Absolute 0.02 K/mm3 (0.00-0.031); Immature Granulocyte Percent A 0.4 % (0-0.5); Lymphocytes Percent Auto 30.1 % (18.3-44.2); Mean Corpuscular HGB Conc 31.3 g/dl (32-36); Mean Corpuscular Hemoglobin 30.2 pg (26-34); Mean Corpuscular Volume 96.5 fl (80-100); Mean Platelet Volume 9.9 fl (7.4-10.4); Monocytes Absolute Auto 0.6 K/mm3 (0.1-0.6); Neutrophils Absolute Auto 2.5 K/mm3 (1.3-6.7); Neutrophils Percent Auto 53.9 % (45.5-73.1); Platelet Count Result 254 k/mm3 (150-375); Red Blood Count 4.84 M/mm3 (4.2-5.4); Red Cell Distribution Width 13.3 % (11.5-14.5); White Blood Count 4.7 K/mm3 (4.5-10.0)
[2022-06-06 09:54] LABS: Crenated RBC 2+ (NORMAL); Platelet Estimate Adequate (Adequate); Schistocytes None Seen (NORMAL)
== END 2022-06-04 07:15 | disposition home or self-care (01) ==
LOC: ANHLAB 07:16
PROVIDERS: PCP Internal Medicine; Visit Provider Physician Assistant
DX: E03.9 Hypothyroidism, unspecified (principal); D64.9 Anemia, unspecified
CPT/HCPCS: 36415; 84439; 84443; 85025

== ENCOUNTER 2022-08-07 17:44 | Emergency (ER) | payer OTHER, SELFPAY ==
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
[2022-08-07 17:58] VITALS: BP 134/79; PULSE 71; RESP 16; TEMP 36.8; O2SAT 100
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
--- NOTE | 2022-08-07 21:55 | PC.NURSE ---
Patient off unit to CT.
[2022-08-07] MEDS: IBUPROFEN 600 MG TABLET PO (22:19)
[2022-08-07] MEDS: CYCLOBENZAPRINE HCL 5 MG TABLET PO (22:19)
[2022-08-07 22:55] VITALS: BP 112/64; PULSE 70; RESP 16; O2SAT 97
== END 2022-08-07 22:58 | disposition home or self-care (01) ==
PROVIDERS: Emergency Provider Physician Assistant; PCP Internal Medicine
DX: S49.92XA Unspecified injury of left shoulder and upper arm, initial encounter (principal); S19.9XXA Unspecified injury of neck, initial encounter; E78.5 Hyperlipidemia, unspecified; E03.9 Hypothyroidism, unspecified; M06.09 Rheumatoid arthritis without rheumatoid factor, multiple sites; Z86.16 Personal history of COVID-19; Z90.710 Acquired absence of both cervix and uterus; Z87.891 Personal history of nicotine dependence; M19.012 Primary osteoarthritis, left shoulder; V49.40XA Driver injured in collision with unspecified motor vehicles in traffic accident, initial encounter; M47.812 Spondylosis without myelopathy or radiculopathy, cervical region
CPT/HCPCS: 72125; 73030; 99284; A9270

== ENCOUNTER 2022-08-13 12:24 | Outpatient (CLI) | payer OTHER, SELFPAY ==
--- NOTE | ~2022-08-13 | XR_ITS ---
Left Hand Technique: PA, oblique, and lateral views were obtained. Clinical History: Pain Findings: No acute fracture or dislocation is seen. Osseous alignment is anatomic. Joint spaces are p reserved. Soft tissues are unremarkable. Impression: Unremarkable left hand. Reviewed, dictated and finalized at location M. EY METHODOLOGIST Impression: Unremarkable left hand.
--- NOTE | ~2022-08-13 | XR_ITS ---
Left wrist Technique: PA, oblique, lateral, and ulnar deviation views were obtained. Clinical History: Pain Findings: No acute fracture or dislocation is seen. Osseous alignment is anatomic. Joint spaces are p reserved. Soft tissues are unremarkable. Impression: Unremarkable left wrist radiographs. Reviewed, dictated and finalized at location . ETICIAN/SKIN THERAPIST Impression: Unremarkable left wrist radiographs.
== END 2022-08-13 12:25 | disposition home or self-care (01) ==
LOC: ANHIMG 12:26
PROVIDERS: PCP Internal Medicine; Visit Provider Physician Assistant
DX: M79.642 Pain in left hand (principal); M25.532 Pain in left wrist
CPT/HCPCS: 73110; 73130

== ENCOUNTER 2022-08-21 00:08 | Day surgery (SDC) | payer OTHER, SELFPAY ==
[2022-08-07 10:21] VITALS: BMI 24.2
--- NOTE | 2022-08-07 10:46 | PC.NURSE ---
Report to the Outpatient Waiting Room, entrance under the green pavilion located off [facility], at time 0900 on date _08/21/22. Planned Procedure Time: 1100. Time changes happen often and if your time is changed the preop area will call you the afternoon before. - You and your visitor will be asked to self-screen and do not enter if you have any COVID symptoms. - Only one visitor is requested with a max of two and NO children visitors are allowed at this time. - The patient visitor may be requested to leave or wait in car when not with patient due to distancing restrictions. - A mask is optional within the hospital at this time. Patients may have clear liquids (water, carbonated beverages, clear teas, apple juice) until 3 hours prior to surgery with a maximum of 20 ounces. - No food from midnight until time of surgery - Infants may have breast milk until 4 hours before surgery, formula 6 hours prior to surgery. - Children will be allowed to drink immediately following surgery. If applicable, please bring a bottle or sippy cup to assist with drinking. Juice, water, soda, and popsicles are readily available. For infants on formula, please bring formula the day of surgery. Pacifiers are allowed. Take the following medications with a SIP of water the morning of surgery: _synthroid, anti-anxiety, anti-deppressant__ DO NOT STOP ANY OF YOUR OTHER PRESCRIPTION MEDICATIONS PRIOR TO SURGERY ?EXCEPT THE FOLLOWING Medications to discontinue per physician _vitamins, supplements__08/18/22_ Date to take last dose Please no make-up, nail [place], hairspray, perfume, deodorant, or body powder the day of surgery. No jewelry (including any body piercings) or valuables the day of surgery, leave them at home. Please take a shower or bath the night before, or the morning of, surgery with an antibacterial soap. Wear comfortable, loose fitting clothing. Children are encouraged to wear pajamas. - Jewelry must be removed prior to entering the operating room. Rings and piercings that are not removed may be cut off. - The hospital will not accept responsibility for valuables. - Please leave all valuables, including medications, at home the day of surgery. If you are going home after surgery, a licensed otr owner operator truck driver must drive you home. - NO public transportation without another adult if you receive anesthesia. - We recommend that an adult stay with you for 24 hours following discharge. - We also recommend that you do not drive, make important decision, drink alcoholic beverages, or take any drugs that were not prescribed by your health care provider for at least 24 hours after your discharge time. For Pediatric surgeries, we recommend two adults accompany the child home. Follow any additional instructions given to you from your surgeon. If you or anyone in your household have experienced Covid symptoms in the past week, please notify your surgeon or the nurse liaison at the phone number below for possible testing. Telephone instructions given to _Ashley Palmer_and asked if any additional questions and then verbalized understanding. Patient advised to call surgeon office or pre surgery nurse liaison [phone] if any additional questions.
--- NOTE | 2022-08-20 17:56 | PM.IMHP ---
H&P: HPI History of Present Illness Date/Time: 08/20/22 17:56 Chief Complaint: Nasal obstruction nasal congestion septal deviation turbinate hypertrophy Narrative: planned surgical procedure Review of Systems Review of Systems: All systems reviewed & are unremarkable except as noted in HPI and below PMFSH Past Medical History Medical History Bilateral hand pain Bilateral hand pain CMC arthritis COVID-19 Hyperlipidemia Hypothyroidism Other specified aftercare following surgery Seronegative rheumatoid arthritis of multiple sites Surgical History Surgical History History of appendectomy History of hysterectomy (~03/2018) History of tubal ligation (~03/2005) Partial tear of right rotator cuff Family History Family History Mother Patient's mother is , Onset Age: 73 Lung cancer Hypertension Hyperlipidemia Osteoporosis Sibling Patient's sister is in good health Father Hypertension CHF (congestive heart failure) Diabetes mellitus Hyperlipidemia Social History Social History Smoking packs per day: 1 Smoking cigarettes per day: 20.0 Years smoked: 15 Smoking pack-years: 15.00 Smoking status: Former smoker Tobacco type: cigarettes Second hand tobacco smoke exposure: No Smoking end date: 07/01/14 Alcohol intake: never Substance use: never Lack of Transportation: No Lack of Food: Never True Current Housing: I Have Housing Concerned About Future Housing: No Difficulty Paying Gas/Electric Bills: No Difficulty Paying for Meds: No Currently Unemployed: No Education: Trade/Vocational Certificate Difficulty w/ Childcare or Family Care: No Living arrangements: with family Spiritual care concerns: No Meds Home Medications and Allergies Home Medications Medication Instructions Recorded Confirmed Type montelukast 10 mg tablet 10 mg PO QHS #90 tabs 07/12/21 08/14/22 Rx (Singulair) multivitamin with minerals 4 tablet PO DAILY 12/28/21 08/14/22 History (Hair,Skin and Nails tablet) bupropion HCl 150 mg tablet,12 hr 150 mg PO BID #180 tabs 03/13/22 08/14/22 Rx sustained-release estradiol 2 mg tablet 2 mg PO DAILY 04/24/22 08/14/22 History progesterone micronized 200 mg 200 mg PO QHS 04/24/22 08/14/22 History capsule omeprazole 20 mg capsule,delayed 20 mg PO BID #60 caps 05/22/22 08/14/22 Rx release fexofenadine 60 mg-pseudoephedrine 1 tablet PO Q12H PRN nasal 06/22/22 08/14/22 Rx ER 120 mg tablet,ext.release,12 hr congestion #60 tabs Synthroid 75 mcg tablet 75 mcg PO DAILY #90 tabs 07/04/22 08/14/22 Rx (levothyroxine) cetirizine 10 mg tablet 10 mg PO DAILY #90 tabs 07/05/22 08/14/22 Rx ergocalciferol (vitamin D2) 1,250 50,000 unit PO WEEKLY #12 caps 07/05/22 08/14/22 Rx mcg (50,000 unit) capsule ferrous sulfate 325 mg (65 mg 325 mg PO BID #60 tabs 07/05/22 08/14/22 Rx iron) tablet,delayed release buspirone 7.5 mg tablet 7.5 mg PO BID PRN anxiety #60 tabs 07/16/22 08/14/22 Rx sumatriptan succinate 100 mg tablet See Rx Instructions PO .COMPLEX 07/31/22 08/14/22 Rx #27 tabs duloxetine 60 mg capsule,delayed 120 mg PO BID 08/07/22 08/14/22 History release hydroxychloroquine 200 mg tablet 400 mg PO BID 08/07/22 08/14/22 History (Plaquenil) baclofen 5 mg tablet 5 mg PO TID PRN muscle pain #90 08/13/22 08/13/22 Rx tabs Allergies Allergy/AdvReac Type Severity Reaction Status Date / Time No Known Allergies Allergy Verified 08/13/22 11:00 Exam Narrative: septal deviation turbinate hypertrophy widened right medial crural footplate Assessment and Plan Assessment and plan (1) Deviated nasal septum: Code(s): J34.2 - Deviated nasal septum Status: Acute
[2022-08-21] VITALS (9 sets, daily range): BP systolic 107–140; BP diastolic 56–86; PULSE 76–91; RESP 12–21; TEMP 36.6; O2SAT 96–100; BMI 25.1
--- NOTE | 2022-08-21 07:17 | WPDHPUPDATE1 ---
History and Physical Update Update Date/Time: 08/21/22 07:17 History and Physical has been reviewed, including an updated exam of the patient. There are NO changes in the patient's condition. Risks, benefits, and alternatives have been discussed and questions answered. Patient agrees to proceed with procedure.
--- NOTE | 2022-08-21 10:29 | WPDANESEPPF ---
Anes - Initial Pre Proc Eval Procedure: Operation Date: 08/21/22 11:45 Proposed Procedures p Endoscopic Septoplasty, - Paul Quijano MD s Bilateral Inferior Turbinectomy with Outfracture - Paul Quijano MD Date/Time: 08/21/22 10:29 Surgeon: Paul Quijano MD Pre Op Diagnosis: septal deviation, turbinate hypertrophy Patient Data Age: 52 Gender: F Height: 1.68 m Weight: 68 kg Allergies Allergy/AdvReac Type Severity Reaction Status Date / Time No Known Allergies Allergy Verified 08/13/22 11:00 Home Medications Medication Instructions Recorded Confirmed Type montelukast 10 mg tablet 10 mg PO QHS #90 tabs 07/12/21 08/14/22 Rx (Singulair) multivitamin with minerals 4 tablet PO DAILY 12/28/21 08/14/22 History (Hair,Skin and Nails tablet) bupropion HCl 150 mg tablet,12 hr 150 mg PO BID #180 tabs 03/13/22 08/14/22 Rx sustained-release estradiol 2 mg tablet 2 mg PO DAILY 04/24/22 08/14/22 History progesterone micronized 200 mg 200 mg PO QHS 04/24/22 08/14/22 History capsule omeprazole 20 mg capsule,delayed 20 mg PO BID #60 caps 05/22/22 08/14/22 Rx release fexofenadine 60 mg-pseudoephedrine 1 tablet PO Q12H PRN nasal 06/22/22 08/14/22 Rx ER 120 mg tablet,ext.release,12 hr congestion #60 tabs Synthroid 75 mcg tablet 75 mcg PO DAILY #90 tabs 07/04/22 08/14/22 Rx (levothyroxine) cetirizine 10 mg tablet 10 mg PO DAILY #90 tabs 07/05/22 08/14/22 Rx ergocalciferol (vitamin D2) 1,250 50,000 unit PO WEEKLY #12 caps 07/05/22 08/14/22 Rx mcg (50,000 unit) capsule ferrous sulfate 325 mg (65 mg 325 mg PO BID #60 tabs 07/05/22 08/14/22 Rx iron) tablet,delayed release buspirone 7.5 mg tablet 7.5 mg PO BID PRN anxiety #60 tabs 01/16/23 02/14/23 Rx sumatriptan succinate 100 mg tablet See Rx Instructions PO .COMPLEX 07/31/22 08/14/22 Rx #27 tabs duloxetine 60 mg capsule,delayed 120 mg PO BID 08/07/22 08/14/22 History release hydroxychloroquine 200 mg tablet 400 mg PO BID 08/07/22 08/14/22 History (Plaquenil) baclofen 5 mg tablet 5 mg PO TID PRN muscle pain #90 08/13/22 08/13/22 Rx tabs Patient hx anesthesia problems: none Family hx anesthesia problems: none Results Review: All pre-operative results and documents have been reviewed as part of the pre-operative evaluation. [facility] Past Medical History Medical History Bilateral hand pain Bilateral hand pain CMC arthritis COVID-19 Hyperlipidemia Hypothyroidism Other specified aftercare following surgery Seronegative rheumatoid arthritis of multiple sites Surgical History Surgical History History of appendectomy History of hysterectomy (~03/2018) History of tubal ligation (~03/2005) Partial tear of right rotator cuff Family History Family History Mother Patient's mother is , Onset Age: 73 Lung cancer Hypertension Hyperlipidemia Osteoporosis Sibling Patient's sister is in good health Father Hypertension CHF (congestive heart failure) Diabetes mellitus Hyperlipidemia Social History Social History Smoking packs per day: 1 Smoking cigarettes per day: 20.0 Years smoked: 15 Smoking pack-years: 15.00 Smoking status: Former smoker Tobacco type: cigarettes Second hand tobacco smoke exposure: No Smoking end date: 07/01/14 Alcohol intake: never Substance use: never Lack of Transportation: No Lack of Food: Never True Current Housing: I Have Housing Concerned About Future Housing: No Difficulty Paying Gas/Electric Bills: No Difficulty Paying for Meds: No Currently Unemployed: No Education: Trade/Vocational Certificate Difficulty w/ Childcare or Family Care: No Living arrangements: with family Spiritual care concerns: No Anes - Eval Fin
[2022-08-21] MEDS: LACTATED RINGERS 1,000 ML 30 ML IV CONT ×3 (10:40→14:57)
[2022-08-21] MEDS: ACETAMINOPHEN 500 MG TABLET 1000 MG PO (10:58)
[2022-08-21] MEDS: ceFAZolin 2 GM/D5W 50 ML 2 GM/50 ML BAG IVPB (11:40)
[2022-08-21] MEDS: LIDO 1%/EPINEPHRINE 1:100,000 20 ML VIAL 5 ML INFILTRATE (12:03)
[2022-08-21] MEDS: OXYMETAZOLINE HCL 0.05% NAS 15 ML BTL (*BKC) 1 SPRAY NASAL (12:04)
[2022-08-21] MEDS: fentaNYL CITRATE INJ (*CRX) 100 MCG/2 ML VIAL 25 MCG IV PUSH ×6 (13:55→14:13)
--- NOTE | 2022-08-21 14:05 | W.PM.PROC2 ---
Procedure Note - Detailed Date of Procedure 08/21/22 Pre-op Diagnosis septal deviation, turbinate hypertrophy nasal obstruction nasal congestion right medial crural tip obstruction hypertrophy for plate not tip foot plate Post-op Diagnosis Same Procedure Performed resection of right medial crural footplate endoscopic assisted septoplasty turbinate reduction with outfracture Surgeon Paul Quijano MD Anesthesia General Indications see above Findings right septal deviation corrected reset to the left side turbinates well reduced right medial walker river foot plate resected hypertrophied portion. Description of Procedure Patient identified consent verified. Patient brought operating room. Time-out performed. General anesthesia induced endotracheal tube secured airway. Patient prepped draped position 2nd time-out performed. Afrin-soaked pledgets placed allowed to sit for 5 minutes then removed. Hemitransection incision made after injection of the bilateral nasal septum with 10 cc 1% lidocaine 1000 parts epinephrine. Left nasal septal flap elevated right nasal septal elevated. Right deviated septum removed. The septum was then released off the footplate reset on the left side. Turbinates reduced after injection of 1 cc 1% lidocaine 1 100,000 parts epinephrine 1. This was bilateral. Reduced in the submucosal plane using microdebrider mulberry tips cauterized with suction Bovie electrocautery and they were then they were then outfractured with Benedict elevator. Small incision made with 11 blade over the right hypertrophied foot plate was resected with small sharp iris scissors. A mattressed 4-0 nylon stitch was then placed to quilt the soft tissue together without producing too much cosmetic deformity inferiorly. The small stab incisions were then closed with interrupted 5 0 fast gut suture. Left hemitransection incision closed with 4 interrupted 5 0 fast gut sutures. Nolan splints placed sutured anteriorly using a 3-0 mattressed suture. The splints cause mild cosmetic deformity inferiorly however this will resolve the splints are. Blood loss 15 cc. I performed all dictated portion of the procedure. Care the patient given Anesthesiology. No complications. Estimated Blood Loss 15 Drains No Packing No Pathology None sent Complications No immediate complications Condition Stable Disposition PACU [facility] Billing Surgery - Charge Forward: Surgery Billing
[2022-08-21] MEDS: oxyCODONE HCL (*CRX) 5 MG TAB IR PO (14:48)
[2022-08-21] MEDS: ONDANSETRON INJ 4 MG/2 ML VIAL IV PUSH (14:56)
== END 2022-08-21 15:43 | disposition home or self-care (01) ==
PROVIDERS: PCP Internal Medicine; Visit Provider Otolaryngology
PROC: (CPT 30520; principal; 2022-08-21 11:45)
PROC: (CPT 30520; 2022-08-21 11:45)
DX: J34.2 Deviated nasal septum (principal); J34.3 Hypertrophy of nasal turbinates; J34.89 Other specified disorders of nose and nasal sinuses; E03.9 Hypothyroidism, unspecified; M06.09 Rheumatoid arthritis without rheumatoid factor, multiple sites; Z87.891 Personal history of nicotine dependence
CPT/HCPCS: 30520; 30140; A9270; J0330; J0690; J1100; J2250; J2405; J2704; J3010; J7120

== ENCOUNTER 2022-10-19 08:14 | Outpatient (CLI) | payer OTHER, SELFPAY ==
[2022-10-19 08:49] LABS: Appearance Urine Clear (Clear); Bilirubin Urine Negative (Negative); Blood Urine Negative (Negative); Color Urine Yellow (Yellow); Glucose Urine UA Negative (Negative); Ketones Urine Negative (Negative); Leukocyte Esterase Ur Negative LEU/UL (Negative); Nitrate Urine Negative (Negative); Protein Urine Negative (Negative); Specific Grav Ur 1.006 (1.001-1.035); Urobilinogen Urine 0.2 mg/dL (<2.0)
[2022-10-19 08:50] LABS: Hematocrit 45.8 % (37.0-47.0); Hemoglobin 14.8 g/dL (12.0-15.0); Mean Corpuscular HGB Conc 32.3 g/dl (32-36); Mean Corpuscular Hemoglobin 29.5 pg (26-34); Mean Corpuscular Volume 91.2 fl (80-100); Mean Platelet Volume 8.8 fl (7.4-10.4); Platelet Count Result 248 k/mm3 (150-375); Red Blood Count 5.02 M/mm3 (4.2-5.4); Red Cell Distribution Width 12.3 % (11.5-14.5); White Blood Count 4.5 K/mm3 (4.5-10.0)
[2022-10-19 08:54] LABS: Add Urine Microscopic? NO
[2022-10-19 09:18] LABS: Erythrocyte Sedimentation Rate 3 mm/hr (0-20)
[2022-10-19 10:13] LABS: Alanine Aminotransferase 30 U/L (6-35); Albumin Level 4.5 g/dL (3.5-5.1); Alkaline Phosphatase 42 U/L (38-126); Anion Gap 3 mmol/L (8-16); Aspartate Amino Transferase 36 U/L (14-36); Bilirubin,Total 0.6 mg/dL (0.2-1.3); Blood Urea Nitrogen 10 mg/dL (7-17); CRP < 0.5 mg/dL (<1.0); Calcium 8.9 mg/dL (8.4-10.2); Carbon Dioxide 33 mmol/L (22-30); Chloride 104 mmol/L (98-107); Estimated Glomerular Filt Rate > 60; Glucose 80 mg/dL (65-110); Potassium 4.2 mmol/L (3.4-5.0); Sodium 140 mmol/L (137-145)
== END 2022-10-19 08:15 | disposition home or self-care (01) ==
PROVIDERS: PCP Internal Medicine; Visit Provider Internal Medicine
DX: R30.0 Dysuria (principal); M06.09 Rheumatoid arthritis without rheumatoid factor, multiple sites; M19.90 Unspecified osteoarthritis, unspecified site
CPT/HCPCS: 36415; 80053; 81003; 85027; 85652; 86140

== ENCOUNTER 2022-12-06 14:03 | Outpatient (CLI) | payer OTHER, SELFPAY ==
--- NOTE | ~2022-12-06 | MM_ITS ---
EXAMINATION: MM screening [place] BI w dorina HISTORY: Screening TECHNIQUE: Craniocaudal and mediolateral oblique 3-D tomosynthesis images were obtained and synthetic 2-D images were generated. CAD analysis was submitted and interpreted. COMPARISON: Comparison to multiple prior studies sequentially, with oldest reviewed study dated 08/28. BREAST PARENCHYMAL COMPOSITION: Breast composed of scattered areas of fibroglandular density FINDINGS: There is no evidence of suspicious mass, calcification, or architectural distortion to sugg est malignancy in either breast. There has been no suspicious interval change. IMPRESSION: 1. No mammographic evidence of malignancy. 2. Recommend routine screening mammography in one year. BI-RADS Category 1: Negative Reviewed, dictated and finalized at location A.
== END 2022-12-06 14:04 | disposition home or self-care (01) ==
PROVIDERS: PCP Internal Medicine; Visit Provider Internal Medicine
DX: Z12.31 Encounter for screening mammogram for malignant neoplasm of breast (principal)
CPT/HCPCS: 77063; 77067

== ENCOUNTER 2022-12-13 11:48 | Outpatient (CLI) | payer OTHER, SELFPAY ==
--- NOTE | ~2022-12-13 | MR_ITS ---
EXAMINATION: MR brain IAC wo con DATE: 12/13/2022 12:32 INDICATION: Other symptoms and signs involving cognitive function. Bilateral tinnitus. TECHNIQUE: Magnetic resonance imaging (MRI) of the brain, brainstem, and internal auditory canals was performed without intravenous contrast. COMPARISON: CT cervical spine 08/07/2022 FINDINGS: There are scattered areas of nonspecific increased T2-weighted signal intensity in the cere bral white matter and manoj. There is no intracranial hemorrhage, acute infarction, or abnormal intrac ranial mass lesion. The ventricles are normal in size. The internal auditory canals and inner and mid dle ears are normal. There is a trace left mastoid effusion. The orbits are normal. The paranasal sin uses are clear. IMPRESSION: 1. Mild nonspecific cerebral white matter disease and pontine disease, which likely represents chroni c small vessel ischemic disease. Reviewed, dictated and finalized at location A. IMPRESSION: 1. Mild nonspecific cerebral white matter disease and pontine disease, which teo hay represents chronic small vessel ischemic disease.
== END 2022-12-13 11:49 | disposition home or self-care (01) ==
PROVIDERS: PCP Internal Medicine; Visit Provider Internal Medicine
DX: R41.89 Other symptoms and signs involving cognitive functions and awareness (principal); R93.0 Abnormal findings on diagnostic imaging of skull and head, not elsewhere classified
CPT/HCPCS: 70551

== ENCOUNTER 2023-02-19 09:05 | Outpatient (CLI) | payer OTHER, SELFPAY ==
[2023-02-19 09:32] LABS: Basophils Percent Auto 0.7 % (0.2-1.2); Eosinophils Absolute Auto 0.1 K/mm3 (0-0.3); Eosinophils Percent Auto 3.2 % (0-4.4); Hematocrit 41.7 % (37.0-47.0); Hemoglobin 13.4 g/dL (12.0-15.0); Immature Granulocyte Absolute 0.02 K/mm3 (0.00-0.031); Immature Granulocyte Percent A 0.5 % (0-0.5); Lymphocytes Absolute Auto 1.41 K/mm3 (0.9-3.2); Lymphocytes Percent Auto 34.2 % (18.3-44.2); Mean Corpuscular HGB Conc 32.1 g/dl (32-36); Mean Corpuscular Hemoglobin 29.5 pg (26-34); Mean Corpuscular Volume 91.9 fl (80-100); Mean Platelet Volume 8.8 fl (7.4-10.4); Monocytes Absolute Auto 0.5 K/mm3 (0.1-0.6); Monocytes Percent Auto 11.9 % (2.6-8.5); Neutrophils Percent Auto 49.5 % (45.5-73.1); Platelet Count Result 209 k/mm3 (150-375); Red Blood Count 4.54 M/mm3 (4.2-5.4); Red Cell Distribution Width 12.8 % (11.5-14.5); White Blood Count 4.1 K/mm3 (4.5-10.0)
[2023-02-19 09:47] LABS: Alanine Aminotransferase 27 U/L (6-35); Albumin Level 3.9 g/dL (3.5-5.1); Alkaline Phosphatase 30 U/L (38-126); Anion Gap 1 mmol/L (8-16); Aspartate Amino Transferase 34 U/L (14-36); Bilirubin,Total 0.4 mg/dL (0.2-1.3); Blood Urea Nitrogen 8 mg/dL (7-17); Calcium 8.8 mg/dL (8.4-10.2); Carbon Dioxide 31 mmol/L (22-30); Chloride 102 mmol/L (98-107); Estimated Glomerular Filt Rate > 60; Glucose 77 mg/dL (65-110); Potassium 3.8 mmol/L (3.4-5.0); Sodium 134 mmol/L (137-145)
[2023-02-19 10:05] LABS: Free T4 Free Thyroxine 0.89 ng/mL (0.78-2.19)
[2023-02-19 11:22] LABS: Magnesium 1.7 mg/dL (1.6-2.3)
--- NOTE | 2023-02-19 11:30 | NEURO_ITS ---
Impression: # Complains of intermittent right hand numbness. # Evolving right Carpal Tunnel Syndrome. # No ulnar neuropathy. # Normal needle/EMG exam. Nerve Conduction Studies Anti Sensory Summary Table Stim Site NR Peak (ms) P-T Amp (?V) Site1 Site2 Delta-P (ms) Dist (cm) Jordi (m/s) Right Median Anti Sensory (2-3nd Digit) Wrist 4.1 45.5 Wrist 2-3nd Digit 4.1 14.0 34 Wrist 4.2 32.7 Wrist 2-3nd Digit 4.1 14.0 34 Right Radial Anti Sensory (Base 1st Digit) Wrist 2.2 23.8 Wrist Base 1st Digit 2.2 0.0 Right Ulnar Anti Sensory (5th Digit) Wrist 2.4 63.7 Wrist 5th Digit 2.4 14.0 58 Motor Summary Table Stim Site NR Onset (ms) O-P Amp (mV) Site1 Site2 Delta-0 (ms) Dist (cm) Jordi (m/s) Right Median Motor (Abd Poll Brev) Wrist 3.5 2.8 Elbow Wrist 5.1 26.0 51 Elbow 8.6 0.7 Right Ulnar Motor (Abd Dig Minimi) Wrist 2.3 6.3 A Elbow Wrist 5.1 27.0 53 A Elbow 7.4 5.5 F Wave Studies NR F-Lat (ms) L-R F-Lat (ms) Right Median (Mrkrs) (Abd Poll Brev) 29.71 Right Ulnar (Mrkrs) (Abd Dig Min) 27.95 EMG Side Muscle Nerve Root Ins Act Fibs Amp Dur Recrt Comment Right 1stDorInt Ulnar C8-T1 Nml Nml Nml Nml Nml Right Ext Indicis Radial (Post Int) C7-8 Nml Nml Nml Nml Nml Right Ext Digitorum Radial (Post Int) C7-8 Nml Nml Nml Nml Nml Right BrachioRad Radial C5-6 Nml Nml Nml Nml Nml Right PronatorTeres Median C6-7 Nml Nml Nml Nml Nml Right Abd Poll Brev Median C8-T1 Nml Nml Nml Nml Nml MTDD
[2023-02-22 00:30] LABS: Zinc 65 mcg/dL (60-130)
[2023-02-22 13:59] LABS: Alpha 1 Globulin 0.3 g/dL (0.2-0.3); Alpha 2 Globulin 0.5 g/dL (0.5-0.9); Beta 1 Globulin 0.4 g/dL (0.4-0.6); Gamma Globulin 0.6 g/dL (0.8-1.7); Interpretation Consistent with
[2023-02-25 04:48] LABS: Creatinine, Random Urine 21 mg/dL (20-275)
== END 2023-02-19 09:06 | disposition home or self-care (01) ==
PROVIDERS: PCP Internal Medicine; Visit Provider Internal Medicine
DX: R53.83 Other fatigue (principal); E87.8 Other disorders of electrolyte and fluid balance, not elsewhere classified; R74.8 Abnormal levels of other serum enzymes
CPT/HCPCS: 36415; 80053; 82570; 83735; 84155; 84156; 84165; 84166; 84439; 84443; 84630; 85025; 95886; 95909

== ENCOUNTER 2023-04-02 08:39 | Outpatient (CLI) | payer OTHER, SELFPAY ==
[2023-04-02 10:06] LABS: Influenza A QL RT-PCR Negative (Negative); Influenza B QL RT-PCR Negative (Negative); RSV RNA, RT-PCR Negative (Negative); SARS-CoV-2 RNA PCR Negative (Negative)
== END 2023-04-02 08:40 | disposition home or self-care (01) ==
PROVIDERS: PCP Internal Medicine; Visit Provider Internal Medicine
DX: R50.9 Fever, unspecified (principal)
CPT/HCPCS: 87637

== ENCOUNTER 2023-05-06 07:16 | Outpatient (CLI) | payer OTHER, SELFPAY ==
[2023-05-08 21:03] LABS: Kappa\\Lambda Light Chains 1.33 (0.26-1.65); Lambda Light Chain 14.1 mg/L (5.7-26.3)
== END 2023-05-06 07:17 | disposition home or self-care (01) ==
PROVIDERS: PCP Internal Medicine; Visit Provider Physician Assistant
DX: D80.1 Nonfamilial hypogammaglobulinemia (principal)
CPT/HCPCS: 36415; 83883; 86335

== ENCOUNTER 2023-05-08 12:39 | Outpatient (CLI) | payer OTHER, SELFPAY ==
[2023-05-08 13:21] LABS: Basophils Absolute Auto 0.1 K/mm3 (0.0-0.1); Basophils Percent Auto 0.9 % (0.2-1.2); Eosinophils Absolute Auto 0.2 K/mm3 (0-0.3); Eosinophils Percent Auto 2.9 % (0-4.4); Hematocrit 44.8 % (37.0-47.0); Hemoglobin 14.3 g/dL (12.0-15.0); Immature Granulocyte Absolute 0.03 K/mm3 (0.00-0.031); Immature Granulocyte Percent A 0.5 % (0-0.5); Lymphocytes Absolute Auto 1.89 K/mm3 (0.9-3.2); Lymphocytes Percent Auto 34.2 % (18.3-44.2); Mean Corpuscular HGB Conc 31.9 g/dl (32-36); Mean Corpuscular Hemoglobin 28.9 pg (26-34); Mean Corpuscular Volume 90.5 fl (80-100); Mean Platelet Volume 8.9 fl (7.4-10.4); Monocytes Absolute Auto 0.5 K/mm3 (0.1-0.6); Monocytes Percent Auto 8.5 % (2.6-8.5); Neutrophils Absolute Auto 2.9 K/mm3 (1.3-6.7); Platelet Count Result 265 k/mm3 (150-375); Red Blood Count 4.95 M/mm3 (4.2-5.4); Red Cell Distribution Width 12.7 % (11.5-14.5); White Blood Count 5.5 K/mm3 (4.5-10.0)
[2023-05-08 13:31] LABS: Alanine Aminotransferase 22 U/L (6-35); Albumin Level 4.3 g/dL (3.5-5.1); Alkaline Phosphatase 39 U/L (38-126); Anion Gap 5 mmol/L (8-16); Aspartate Amino Transferase 32 U/L (14-36); Bilirubin,Total 0.5 mg/dL (0.2-1.3); Blood Urea Nitrogen 11 mg/dL (7-17); Calcium 8.9 mg/dL (8.4-10.2); Carbon Dioxide 30 mmol/L (22-30); Chloride 103 mmol/L (98-107); Estimated Glomerular Filt Rate 58; Glucose 87 mg/dL (65-110); Potassium 4.1 mmol/L (3.4-5.0); Sodium 138 mmol/L (137-145)
== END 2023-05-08 12:40 | disposition home or self-care (01) ==
PROVIDERS: PCP Physician Assistant; Visit Provider Physician Assistant
DX: E78.5 Hyperlipidemia, unspecified (principal); D64.9 Anemia, unspecified
CPT/HCPCS: 36415; 80053; 85025

== ENCOUNTER 2023-05-09 14:31 | Outpatient (CLI) | payer OTHER, SELFPAY | END 2023-05-09 14:32 | disposition home or self-care (01) | LOC: ANHAUDIO 14:33 | PROVIDERS: PCP Physician Assistant; Visit Provider Otolaryngology | DX: H90.3 Sensorineural hearing loss, bilateral (principal) | CPT/HCPCS: 92557; 92567 ==

== ENCOUNTER 2023-07-30 08:14 | Outpatient (CLI) | payer OTHER, SELFPAY ==
[2023-07-30 14:22] LABS: Alanine Aminotransferase 25 U/L (6-35); Alkaline Phosphatase 48 U/L (38-126); Anion Gap 4 mmol/L (8-16); Aspartate Amino Transferase 61 U/L (14-36); Bilirubin,Total 0.6 mg/dL (0.2-1.3); Blood Urea Nitrogen 15 mg/dL (7-17); Calcium 8.5 mg/dL (8.4-10.2); Carbon Dioxide 31 mmol/L (22-30); Chloride 104 mmol/L (98-107); Cholesterol 234 mg/dL (0-200); Estimated Glomerular Filt Rate > 60; Glucose 74 mg/dL (65-110); HDL Direct 91 mg/dL; Potassium 4.1 mmol/L (3.4-5.0); Sodium 139 mmol/L (137-145); Triglycerides 48 mg/dL (<150)
[2023-07-30 14:33] LABS: LDL Cholesterol Direct 123 mg/dL
[2023-07-30 14:33] LABS: Basophils Percent Auto 0.9 % (0.2-1.2); Eosinophils Absolute Auto 0.3 K/mm3 (0-0.3); Eosinophils Percent Auto 5.6 % (0-4.4); Hematocrit 43.6 % (37.0-47.0); Hemoglobin 13.4 g/dL (12.0-15.0); Immature Granulocyte Absolute 0.03 K/mm3 (0.00-0.031); Immature Granulocyte Percent A 0.7 % (0-0.5); Lymphocytes Absolute Auto 1.71 K/mm3 (0.9-3.2); Mean Corpuscular HGB Conc 30.7 g/dl (32-36); Mean Corpuscular Hemoglobin 28.9 pg (26-34); Mean Corpuscular Volume 94.2 fl (80-100); Mean Platelet Volume 9.8 fl (7.4-10.4); Monocytes Absolute Auto 0.5 K/mm3 (0.1-0.6); Neutrophils Percent Auto 44.8 % (45.5-73.1); Platelet Count Result 232 k/mm3 (150-375); Red Blood Count 4.63 M/mm3 (4.2-5.4); Red Cell Distribution Width 13.3 % (11.5-14.5); White Blood Count 4.5 K/mm3 (4.5-10.0)
[2023-07-30 14:48] LABS: Thyroid Stimulating Hormone 0.989 uIU/mL (0.465-4.680)
[2023-07-30 15:27] LABS: Free T4 Free Thyroxine 0.88 ng/mL (0.78-2.19)
== END 2023-07-30 08:15 | disposition home or self-care (01) ==
LOC: ANHGOSHLAB 08:16
PROVIDERS: PCP Family Medicine; Visit Provider Clinical Nurse Specialist
DX: E03.9 Hypothyroidism, unspecified (principal); D80.1 Nonfamilial hypogammaglobulinemia; E78.5 Hyperlipidemia, unspecified; E55.9 Vitamin D deficiency, unspecified
CPT/HCPCS: 36415; 80053; 80061; 82306; 84439; 84443; 85025

== ENCOUNTER 2023-10-01 12:15 | Outpatient (CLI) | payer OTHER, SELFPAY ==
[2023-10-01 12:43] LABS: Hematocrit 42.5 % (37.0-47.0); Hemoglobin 13.7 g/dL (12.0-15.0); Mean Corpuscular HGB Conc 32.2 g/dl (32-36); Mean Corpuscular Hemoglobin 28.5 pg (26-34); Mean Corpuscular Volume 88.4 fl (80-100); Mean Platelet Volume 8.9 fl (7.4-10.4); Platelet Count Result 264 k/mm3 (150-375); Red Blood Count 4.81 M/mm3 (4.2-5.4); Red Cell Distribution Width 12.8 % (11.5-14.5); White Blood Count 4.5 K/mm3 (4.5-10.0)
[2023-10-01 12:50] LABS: Alanine Aminotransferase 30 U/L (6-35); Alkaline Phosphatase 45 U/L (38-126); Anion Gap 2 mmol/L (4-12); Aspartate Amino Transferase 39 U/L (14-36); Bilirubin,Total 0.4 mg/dL (0.2-1.3); Blood Urea Nitrogen 19 mg/dL (7-17); CRP < 0.5 mg/dL (<1.0); Carbon Dioxide 31 mmol/L (22-30); Chloride 105 mmol/L (98-107); Estimated Glomerular Filt Rate > 60; Glucose 92 mg/dL (65-110); Potassium 3.9 mmol/L (3.4-5.0); Sodium 138 mmol/L (137-145)
[2023-10-01 14:28] LABS: Erythrocyte Sedimentation Rate 8 mm/hr (0-20)
== END 2023-10-01 12:16 | disposition home or self-care (01) ==
PROVIDERS: PCP Clinical Nurse Specialist; Visit Provider Internal Medicine
DX: K58.1 Irritable bowel syndrome with constipation (principal); R76.8 Other specified abnormal immunological findings in serum; M06.09 Rheumatoid arthritis without rheumatoid factor, multiple sites; M19.90 Unspecified osteoarthritis, unspecified site
CPT/HCPCS: 36415; 80053; 85027; 85652; 86140

== ENCOUNTER 2024-01-23 02:04 | Day surgery (SDC) | payer OTHER, SELFPAY ==
[2024-01-20 12:55] VITALS: BMI 27.5
--- NOTE | 2024-01-20 13:01 | PC.NURSE ---
Addendum entered by Katherine Sierra RN 01/20/24 13:13: PT ALSO INSTRUCTED TO TAKE TOPAMAX MORNING OF SURGERY Original Note: Report to the Outpatient Waiting Room, entrance under the [facility] pavilion located off [facility], at time _0615 on date _01/23/24. Planned Procedure Time: _08__. Time changes happen often and if your time is changed the preop area will call you the afternoon before. - You and your visitor will be asked to self-screen and do not enter if you have any COVID symptoms. - A mask is optional within the hospital at this time. Patients may have clear liquids (water, carbonated beverages, clear teas, apple juice) until 8 hours prior to surgery with a maximum of 20 ounces. - No food from midnight until time of surgery - Infants may have breast milk until 4 hours before surgery, infant formula 6 hours prior to surgery. - Children will be allowed to drink immediately following surgery. If applicable, please bring a bottle or sippy cup to assist with drinking. Juice, water, soda, and popsicles are readily available. For infants on formula, please bring formula the day of surgery. Pacifiers are allowed. Take the following medications with a SIP of water the morning of surgery: LEVOTHYROXINE DO NOT STOP ANY OF YOUR OTHER PRESCRIPTION MEDICATIONS PRIOR TO SURGERY ?EXCEPT THE FOLLOWING Medications to discontinue per physician NONE Date to take last dose Please no make-up, nail yakut, hairspray, perfume, deodorant, or body powder the day of surgery. No jewelry (including any body piercings) or valuables the day of surgery, leave them at home. Please take a shower or bath the night before, or the morning of, surgery with an antibacterial soap. Wear comfortable, loose fitting clothing. Children are encouraged to wear pajamas. - Jewelry must be removed prior to entering the operating room. Rings and piercings that are not removed may be cut off. - The hospital will not accept responsibility for valuables. - Please leave all valuables, including medications, at home the day of surgery. If you are going home after surgery, a licensed route relief driver must drive you home. - NO public transportation without another adult if you receive anesthesia. - We recommend that an adult stay with you for 24 hours following discharge. - We also recommend that you do not drive, make important decision, drink alcoholic beverages, or take any drugs that were not prescribed by your health care provider for at least 24 hours after your discharge time. For Pediatric surgeries, we recommend two adults accompany the child home. Follow any additional instructions given to you from your surgeon. If you or anyone in your household have experienced Covid symptoms in the past week, please notify your surgeon or the nurse liaison at the phone number below for possible testing. Telephone instructions given to __PATIENT__and asked if any additional questions and then verbalized understanding. Patient advised to call surgeon office or pre surgery nurse liaison [phone] if any additional questions.
[2024-01-23 06:15] VITALS: BMI 27.3
--- NOTE | 2024-01-23 06:59 | PM.HPGS ---
History of Present Illness History of Present Illness Chief complaint: Right carpal tunnel syndrome, Narrative: Patient seen and examined in pre-operative holding area. No interval change in medical history or symptoms. Patient recalls previous discussion of benefits and alternatives to procedure. Continues to desire to proceed with right endoscopic possible open carpal tunnel release and right cubital tunnel release . Reviewed procedure, post-op expectations and risks including but not limited to bleeding, infection, injury to tendon/nerve/vessel, decreased hand function, stiffness, RSD, no change or worsening of symptoms. I discussed the possible use of assistants and their participation in the case. Patient stated understanding and signed the consent form wishing to proceed. Review of Systems Review of Systems: All systems reviewed & are unremarkable except as noted in HPI and below PMFSH Past Medical History Medical History Bilateral hand pain Bilateral hand pain CMC arthritis COVID-19 Hyperlipidemia Hypothyroidism Other specified aftercare following surgery Seronegative rheumatoid arthritis of multiple sites Surgical History Surgical History History of appendectomy History of hysterectomy (~03/2018) History of tubal ligation (~03/2005) Partial tear of right rotator cuff S/P correction of deviated nasal septum (~2021) Family History Family History Mother Patient's mother is , Onset Age: 73 Lung cancer Hypertension Hyperlipidemia Osteoporosis Sibling Patient's sister is in good health Father Hypertension CHF (congestive heart failure) Diabetes mellitus Hyperlipidemia Social History Social History Smoking packs per day: 1 Smoking cigarettes per day: 20.0 Years smoked: 18 Smoking pack-years: 18.00 Smoking status: Former smoker Tobacco type: cigarettes Second hand tobacco smoke exposure: No Smoking end date: 07/01/14 Additional smoking assessment comments: 2009 Alcohol intake: former Substance use: never Lack of Transportation: No Lack of Food: Never True Current Housing: I Have Housing Concerned About Future Housing: No Difficulty Paying Gas/Electric Bills: No Difficulty Paying for Meds: No Currently Unemployed: No Education: Trade/Vocational Certificate Difficulty w/ Childcare or Family Care: No Living arrangements: alone Spiritual care concerns: No Meds Home Medications and Allergies Home Medications Medication Instructions Recorded Confirmed Type estradiol 2 mg tablet 2 mg PO DAILY 04/24/22 01/20/24 History fexofenadine 60 mg-pseudoephedrine 1 tablet PO Q12H PRN nasal 05/30/23 01/20/24 Rx ER 120 mg tablet,ext.release,12 hr congestion #60 tabs ondansetron 4 mg disintegrating 4 - 8 mg PO Q8H PRN nausea and 07/26/23 01/20/24 Rx tablet vomiting #20 tabs omeprazole 20 mg capsule,delayed 20 mg PO BID #180 caps 08/27/23 01/20/24 Rx release escitalopram oxalate 20 mg tablet 10 mg PO HS 10/01/23 01/20/24 History cetirizine 10 mg tablet 10 mg PO DAILY #90 tabs 10/15/23 01/20/24 Rx hydroxychloroquine 200 mg tablet 400 mg PO BID #180 tabs 11/14/23 01/20/24 Rx (Plaquenil) levothyroxine 50 mcg tablet 50 mcg PO DAILY #90 tabs 12/02/23 01/20/24 Rx atomoxetine 40 mg capsule 40 mg PO DAILY 01/20/24 01/20/24 History bupropion HCl 150 mg tablet,12 hr 150 mg PO HS 01/20/24 01/20/24 History sustained-release (Wellbutrin SR) duloxetine 60 mg capsule,delayed 60 mg PO HS 01/20/24 01/20/24 History release phentermine 37.5 mg capsule 37.5 mg PO DAILY 01/20/24 01/20/24 History topiramate 50 mg tablet (Topamax) 50 mg PO BID 01/20/24 01/20/24 History Allergies Allergy/AdvReac Type Severity Reaction Status Date / Time No Kno
--- NOTE | 2024-01-23 06:59 | W.PM.PROC2 ---
Procedure Note - Detailed Date of Procedure 01/23/24 Pre-op Diagnosis Right carpal and cubital tunnel syndrome, Post-op Diagnosis Same Procedure Performed right ectr and CuTR Surgeon Alton Fisher MD Tool Room Supervisor rigoberto maki pa-c Anesthesia MAC Description of Procedure INFORMED CONSENT: The patient was seen and examined and marked in the pre-op area.? The patient signed the consent form. PROCEDURE IN DETAIL:The patient taken back to OR on the stretcher in supine position. Time out performed with anesthesia, surgeon and staff agreeing on patient's name site and surgery to be performed SCDs were placed on the lower extremities and inflated. A tourniquet was placed on {right} upper extremity and antibiotics given IV After anesthesia administered sedation I injected {10}cc 1%lido with epi and 0.5% marcaine plain at the operative sites The?{right upper extremity}?was prepped and draped in sterile fashion the??{right upper extremity} was? exsanguinated with Esmarch bandage and tourniquet inflated to 250mmHg I made a transverse incision in the {right} volar distal wrist crease through skin and dermis with 15 blade scalpel.? Littler scissors spread down to antebrachial fascia. A small incision was made in antebrachial fascia allowing access to Carpal tunnel. I proceeded with sequential dilation staying in line with the ring finger and hugging the hook of the hamate.? I then used the synovial elevator to free any adhesions from the underside of the transverse carpal ligament. Next I was able to insert the Microaire endoscopic carpal tunnel device with direct visualization of the transverse fibers on the monitor and proceeded with complete segmental retrograde release of the ligament in its entirety.? I irrigated with normal saline and closed with 4-0 monocryl for dermis and subcuticular closure. I next proceeded with making a longitudinal incision between two heads for flexor carpi ulnaris at end of {right} cubital tunnel with 15 blade scalpel.? Littler scissors were used to spread down to FCU fascia.? An incision was made in FCU fascia and ulnar nerve identified exiting cubital tunnel.? I proceeded with complete retrograde release of the cubital tunnel including 7cm proximal for the intermuscular septum.? The nerve appeared healthy with visible vaso nervorum.? There was no subluxation on full elbow range of motion. ? I irrigated with normal saline and closure with 4-0 monocryl for dermis and subcuticular. The incisions were covered with Dermabond then 4x4s, jaki, and a posterior elbow and volar wrist splint for patient safety, security and comfort and secured with silviano bandages after the tourniquet was let down noting the hand was warm and well perfused.? Patient awaken from anesthesia and transferred to recovery in stable condition Complications - none EBL- 1cc Disposition - home in stable conditions rigoberto maki pa-c was essential for positioning, retraction, closure and dressing placement [facility] Billing Surgery - Charge Forward: Surgery Billing ([id number] for rigoberto)
[2024-01-23] MEDS: LIDO 1%/EPINEPHRINE 1:100,000 50 ML VIAL 10 ML INFILTRATE ×2 (07:37→08:20)
--- NOTE | 2024-01-23 07:44 | WPDANESEPPF ---
Anes - Initial Pre Proc Eval Procedure: Operation Date: 01/23/24 08:15 Proposed Procedures p Right Endoscopic Carpal Tunnel Release Possible Open and Right Cubital Tunnel Release - Alton Fisher MD Date/Time: 01/23/24 07:44 Surgeon: Alton Fisher MD Pre Op Diagnosis: Right carpal tunnel syndrome, Patient Data Age: 53 Gender: F Height: 1.65 m Weight: 75 kg Allergies Allergy/AdvReac Type Severity Reaction Status Date / Time No Known Allergies Allergy Verified 12/11/23 13:57 Home Medications Medication Instructions Recorded Confirmed Type estradiol 2 mg tablet 2 mg PO DAILY 04/24/22 01/20/24 History fexofenadine 60 mg-pseudoephedrine 1 tablet PO Q12H PRN nasal 05/30/23 01/20/24 Rx ER 120 mg tablet,ext.release,12 hr congestion #60 tabs ondansetron 4 mg disintegrating 4 - 8 mg PO Q8H PRN nausea and 07/26/23 01/20/24 Rx tablet vomiting #20 tabs omeprazole 20 mg capsule,delayed 20 mg PO BID #180 caps 08/27/23 01/20/24 Rx release escitalopram oxalate 20 mg tablet 10 mg PO HS 10/01/23 01/20/24 History cetirizine 10 mg tablet 10 mg PO DAILY #90 tabs 10/15/23 01/20/24 Rx hydroxychloroquine 200 mg tablet 400 mg PO BID #180 tabs 11/14/23 01/20/24 Rx (Plaquenil) levothyroxine 50 mcg tablet 50 mcg PO DAILY #90 tabs 12/02/23 01/20/24 Rx atomoxetine 40 mg capsule 40 mg PO DAILY 01/20/24 01/20/24 History bupropion HCl 150 mg tablet,12 hr 150 mg PO HS 01/20/24 01/20/24 History sustained-release (Wellbutrin SR) duloxetine 60 mg capsule,delayed 60 mg PO HS 01/20/24 01/20/24 History release phentermine 37.5 mg capsule 37.5 mg PO DAILY 01/20/24 01/20/24 History topiramate 50 mg tablet (Topamax) 50 mg PO BID 01/20/24 01/20/24 History Patient hx anesthesia problems: none Family hx anesthesia problems: none Results Review: All pre-operative results and documents have been reviewed as part of the pre-operative evaluation. [facility] Past Medical History Medical History Bilateral hand pain Bilateral hand pain CMC arthritis COVID-19 Hyperlipidemia Hypothyroidism Other specified aftercare following surgery Seronegative rheumatoid arthritis of multiple sites Surgical History Surgical History History of appendectomy History of hysterectomy (~03/2018) History of tubal ligation (~03/2005) Partial tear of right rotator cuff S/P correction of deviated nasal septum (~2021) Family History Family History Mother Patient's mother is , Onset Age: 73 Lung cancer Hypertension Hyperlipidemia Osteoporosis Sibling Patient's sister is in good health Father Hypertension CHF (congestive heart failure) Diabetes mellitus Hyperlipidemia Social History Social History Smoking packs per day: 1 Smoking cigarettes per day: 20.0 Years smoked: 18 Smoking pack-years: 18.00 Smoking status: Former smoker Tobacco type: cigarettes Second hand tobacco smoke exposure: No Smoking end date: 07/01/14 Additional smoking assessment comments: 2009 Alcohol intake: former Substance use: never Lack of Transportation: No Lack of Food: Never True Current Housing: I Have Housing Concerned About Future Housing: No Difficulty Paying Gas/Electric Bills: No Difficulty Paying for Meds: No Currently Unemployed: No Education: Trade/Vocational Certificate Difficulty w/ Childcare or Family Care: No Living arrangements: alone Spiritual care concerns: No Anes - Eval Final PreProcedure Day of Procedure 01/23/24 07:44 Patient weight: overweight Heart: regular rate and rhythm Lungs: clear to auscultation Airway: Mallampati scale class II Neurological: alert and oriented Last oral intake: >/= 8 hours ASA classification:
[2024-01-23] MEDS: ceFAZolin 2 GM/D5W 50 ML 2 GM/50 ML BAG IVPB (08:09)
[2024-01-23] MEDS: BUPivacaine HCL 0.5% PF 30 ML VIAL 10 ML INFILTRATE (08:22)
[2024-01-23 08:40] VITALS: BP 100/68; PULSE 63; RESP 16; O2SAT 98
[2024-01-23] MEDS: LACTATED RINGERS 1,000 ML 30 ML IV CONT (08:40)
[2024-01-23 09:10] VITALS: BP 101/64; PULSE 76; RESP 16; O2SAT 96
[2024-01-23 09:36] VITALS: BP 111/70; PULSE 74; RESP 16
== END 2024-01-23 09:45 | disposition home or self-care (01) ==
PROVIDERS: PCP Clinical Nurse Specialist; Visit Provider Plastic Surgery
PROC: 01N54ZZ Release Median Nerve, Percutaneous Endoscopic Approach (ICD-10-PCS; CPT 29848; principal; 2024-01-23 08:15)
DX: G56.01 Carpal tunnel syndrome, right upper limb (principal); G56.21 Lesion of ulnar nerve, right upper limb; E78.5 Hyperlipidemia, unspecified; E03.9 Hypothyroidism, unspecified; Z98.890 Other specified postprocedural states; Z98.51 Tubal ligation status; Z87.891 Personal history of nicotine dependence; Z80.1 Family history of malignant neoplasm of trachea, bronchus and lung; Z82.49 Family history of ischemic heart disease and other diseases of the circulatory system
CPT/HCPCS: 29848; 64718; J0690; J1100; J2250; J2405; J2704; J3010; J7120

== ENCOUNTER 2024-08-26 07:17 | Outpatient (CLI) | payer OTHER, SELFPAY ==
--- OUTSIDE RECORDS SUMMARY | 2024-08-26 07:21 | XMS_ITS ---
Author Organization [facility] [employer] Address [address] [facility] [address] [place] [address] Care Team Providers Care Vp Marketing Name Role Phone Sonja Leavitt Unavailable [phone] Allergies No Known Allergies REASON FOR VISIT follow up medication management Medications Medication SIG (Take, Route, Frequency, Duration) Notes Start Date End Date Status Lissette-D Allergy & Congestion 60-120 MG TAKE 1 TABLET BY MOUTH EVERY 12 HOURS NEEDED FOR CONGESTION Oral for 10 Days Active Hydroxychloroquine Sulfate 200 MG TAKE 2 TABLETS BY MOUTH TWICE DAILY Oral for 30 Days Active Atomoxetine HCl 80 MG 1 capsule in the morning Orally Once a day for 90 days 12/23/2023 05/04/2024 Active Levothyroxine Sodium 50 MCG TAKE 1 TABLET BY MOUTH DAILY Oral for 90 Days Active Omeprazole 20 MG TAKE 1 CAPSULE BY MOUTH TWICE DAILY Oral for 90 Days Active hydrOXYzine HCl 25 MG TAKE 1 TABLET BY MOUTH TWICE DAILY NEEDED FOR ITCHING Oral for 15 Days Active Escitalopram Oxalate 10 MG 1 tablet at bedtime Oral Once a day for 90 days Active DULoxetine HCl 60 MG 1 capsule Oral Once a day for 90 days d/c 30mg caps Active Phentermine HCl 30 MG TAKE 1 CAPSULE BY MOUTH EVERY DAY Oral for 30 Days Active Social History Tobacco Use: Social History Observation Description Date Details (start date - stop date) Former Smoker 12/03/1988 - 12/06/1992 Sex Assigned At : Social History Observation Description Sex Assigned At Female Tobacco Control (Standard) Question Answer Notes Tobacco use: Former smoker When did you start smoking? 12/03/1988 When did you stop smoking? 12/06/1992 How long has it been since you last smoked? Grea ter than 10 years Section Notes: Social History Substance Use Do you or have you ever smoked tobacco?: Former smoker How much tobacco do you smoke?: None Do you or have you ever used e-cigarettes or vape?: Never used electronic cigarettes What was the date of your most recent tobacco screening?: 11/14/2023 Has tobacco cessation counseling been provided?: No What is your level of alcohol consumption?: Occasional How many years have you consumed alcohol?: 30 Do you use any illicit or recreational drugs?: No Which illicit or recreational drugs have you used?: None Have you used IV drugs?: No What is your level of caffeine consumption?: Moderate Education and Occupation What is the highest grade or level of school you have completed or the highest degree you have received?: Some college, no degree Are you currently employed?: Yes Who is your employer?: [employer] Marriage and Sexuality What is your relationship status?: Single Are you sexually active?: No Do you use protection during sex?: No How many children do you have?: 3 Home and Environment Are there any guns present in your home?: No Advance Directive Do you have an advance directive?: No Do you have a medical power of director nursing service?: No Vital Signs Blood pressure systolic 127 mm Hg 02/04/20 24 Blood pressure diastolic 89 mm Hg 024 Heart Rate 71 /min 02/04/2024 Height 65.00 in 02/04/2024 Weight 167 lbs 02/04/2024 BMI 27.79 kg/m2 02/04/2024 Height-cm 165.10 cm 02/04/2024 Weight-kg 75.75 kg 02/04/2024 Encounters Encounter Location Date Provider Diagnosis [facility] [address] [address] 02/04/2024 Sonja Leavitt ADHD (attention deficit hyperactivity disorder), combined type F90.2 ; Major depressive disorder, recurrent, mild F33.0 ; Generalized anxiety disorder F41.1 and Panic attacks F41.0 Assessments Encounter Date Diagnosis (ICD Code) Assessment Notes Treatment Notes Treatment Clinical Notes Section Notes 02/04/2024 ADHD (attention deficit hyperactivity disorder), combined type (ICD-10 - F90.2) increase atomoxetine to 80mg qam all scripts sent [facility] Diff: PTSD tolerating atomoxetine, possibly some improvements. No issue decreasing wellbutrin, she also decreased her duloxetine as didn't feel higher was better. Plan to increase atomoxetine and stop wellbutrin. education on medications and treatment course. cont therapy f/u 2 months, earlier if concerns 02/04/2024 Major depressive disorder, recurrent, mild (ICD-10 - F33.0) stop wellbutrin SR 150mg once a day cont duloxetine DR 60mg daily (she decreased between visits) cont lexapro 10mg qhs (monitor wt/appetite, mood, anxiety) cont therapy 02/04/2024 Generalized anxiety disorder (ICD-10 - F41.1) as above 02/04/2024 Panic attacks (ICD-10 - F41.0) as above had xanax from PCP, reports not taking recently (last filled 08/27/23) Plan Of Treatment Medication Medication Name Sig Start Date Stop Date Notes Atomoxetine HCl 80 MG 1 capsule in the morning Orally Once a day for 90 days 12/23/2023 05/04/2024 Escitalopram Oxalate 10 MG 1 tablet at b edtime Oral Once a day for 90 days DULoxetine HCl 60 MG 1 capsule Oral Once a day for 90 days d/c 30mg caps buPROPion HCl ER (SR) 150 MG TAKE 1 TABLET BY MOUTH TWICE DAILY Oral Treatment Notes Assessment Notes ADHD (attention deficit hype ractivity disorder), combined type increase atomoxetine to 80mg qam all scripts sent to [facility] Major depressive disorder, recurrent, mi ld stop wellbutrin SR 150mg once a day cont duloxetine DR 60mg daily (she decreased between visits) cont lexapro 10mg qhs (monitor wt/appetite, mood, anxiety) cont therapy Generalized anxiety disorder as above Panic attacks as above Next Appt Details Follow Up: 2 Months, Reason: Progress Notes * YOEL BRUMFIELD LDOB: [birth year] (53 yo F)Acc No.[id number]:02/04/2024 Patient: YOEL ENG Provider: [facility] JACOB :1970 A ge:53 Y S ex:Female Date:02/04/2024 Address:[address] [place] [address], [id number] Subjective: * Chief Complaints: * 1 . Follow up medication management. 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 Context: recent break up from 19 yr relationship, recent empty stephanie, 06/04/22 daughter lost a 20 wk IVF . decreased wellbutrin and started atomoxetine last visit. she decreased her own duloxetine by 30mg as did not think there was benefit; taking 60mg total. And asked to increase atomoxetine prior to visit so could mail it is still taking 40mg, and tomorrow will start 80mg. Denies side effect issues. having some improvement in mood, memory may be a little better, maybe less interrupting. not really feeling depressed, maybe one day a week a little down in reaction to something. Denies SI. anxiety at work-mild. outside of work is not bad. Sleep interrupted by bathroom and dogs but otherwise not bad. medical: had carpal tunnel surgery-brace on right wrist. 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 G eneral Follow Up: ongoing notes past meds: z oloft 5yrs helpful; b uspar-took one day-bernstein; p hentermine intermittent;?xanax INITIAL SUBSTANCE USE HX: Caffeine: 1 c a day Cigarette/vape: former smoker ETOH: less than monthly, denies past problem use Cannabis: never Other drug use or tx hx: denied Denied hx of psychiatric hospitalizations, suicide attempts or self-injury. Counseling: with all this, did reach out for EAP, did video a few times; couldn't really talk/upset; past: have done counseling at least 10 yrs ago Trauma/abuse hx: childhood: denied. adult denied abuse. trauma: stillbirth grandchild my kids are great. oldest a pharmacist, daughter is RN and youngest going to law school Anxiety hx: not as child, started with motherhood at 22. He was born in [place], I was very overprotective. anxiety stuck since then, worse in divorce age 30, that's when started meds, took a long time to be on own. Even before all this, the stillbirth, I was very stressed. Worry all the time about every thing. hard to relax. ruminates all the time and especially before bed. I have anxiety almost every time I go to work. anxiety moderate and some days severe. I have no confidence the last 3 yrs.?Panic attacks: s tarted 30 y/o, off and one, worst ones the last year at work, past month better, probably twice a week. Depression hx: not as child, not until about 30 y/o, when moved here from [place] then divorce after a year. feel like it's been pretty constant since then and just times that it gets worse. Depression moderate and sometimes severe. I avoid doing things don't want to see people from past. some helpless, hopeless, bad about self, lack of naina. sleep: go to bed usually 830, lately falling asleep ok, wake 2-3 times for 15 min, get up 450. Denied snoring. had sleep study few years ago, negative. SI: better off thoughts sometimes, maybe once a month. Denied thoughts of killing self, plan or intent. 08/22/23 intake: I'd like to get off some medicines, maybe the duloxetine, if there is something that could replace it. And I feel like sometimes I block my mind from taking things in and learning. 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 Just now getting. But I was feeling sick all the time with stress. Jun 04 2022 daughter lost a 20 wk IVF gestation, I was with her. Bleeding. Trouble dilating, wasn't sure fetus would be intact . was stillborn. And then son had baby (this is first grandchild living) that was due a month apart had in august a month before the other would have been due. 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 And I ended a 19 yr relationship in March 2023, wasn't going anywhere and a lot of lying on his end. Also daughter is again, due December 09, is 24 wks (so farther already) but stressful every day. a long time ago and youngest just moved out to go to college in January (just at [employer] never comes home), so that was hard too. talks a lot about interpersonal stressors at work. having some improvement lately, since job change PCP note establish care visit 07/26/23: PCP had ordered TSH, CBC, free T4, CMP, lipid, vit D cont cymbalta, wellbutrin, xanax, see psych, recommend counseling advised against phentermine for focus as normal BMI, refer to psych. A ttention deficit / hyperactivity disorder: ADHD sx hx: reports onset: c hildhood; inattention p oor ability to give close attention to details?; h as difficulty sustaining attention in tasks ; m akes careless mistakes at work ; d oes not listen when spoken to directly ; d oes not follow through on instructions ; f ails to finish work ( t akes much longer ) ; h as difficulty organizing tasks and activities ; r eluctant to engage in tasks that require sustained mental effort ; l oses things necessary for tasks or activities ; e asily distracted by extraneous stimuli ; f orgetful in daily activities; Hyperactivity: O ften fidgets with or taps hands or feet, or squirms in seat. ; O ften runs about or climbs in situations where it is not appropriate (adolescents or adults may be limited to feeling restless) ; I s often on the go acting as if driven by a motor . ; e xcessive talking ; b lurts out answers before questions have been completed ; O ften has trouble waiting his/her turn ; O ften interrupts or intrudes on others (e.g., butts into conversations or games); C ontext: l ack of productivity at work ; i ncreased anxiety ; o ngoing cognitive distortions ; d ysfunction in family ( h ousehold management ) ; f inancial problems ( tank orozco ) -see past notes for review completed ADHD testing on 12/16/23; had taken phentermine 30mg that day Main test results valid Malingering: RICK: visual and auditory malingering indicators supported malingering ADHD testing RICK Summary: Full scale response control scale: extremely impaired Auditory response control quotient scale: severely impaired Visual response control quotient scale: extremely impaired Full scale attention scale: extremely impaired Auditory attention quotient scale: extremely impaired Visual attention quotient scale: extremely impaired Combined sustained attention scale: extremely impaired Global auditory sustained attention quotient scale: extremely impaired Global visual sustained attention quotient scale: extremely impaired CHACON: ECQ above average CFQ: above average ACQ: average Self rating scales: combined consider ADHD combined. * ROS: P sychiatric: Comments S kenna SWAIN for details. * Medical History: P roblems: Attention deficit hyperactivity disorder, combined type, Generalized anxiety disorder, Mild recurrent major depression, Panic attack, Severe recurrent major depression without psychotic features, ,. * Surgical History: S inus surgery 08/21/2021, Hysterectomy (09502) 04/30/2018, Appendectomy ([id number]) 05/28/2012, Other R rotator cuff 05/28/2012. * Hospitalization/Major Diagno stic Procedure: D enies Past Hospitalization. * Family History: F ather: , No current problems or disability . M other: , No current problems or disability . S on: Anxiety disorder . D aughter: Depressive disorder . 3 sister(s) . . All sisters have depression and/or anxity. * Social History: T obacco Use: T obacco Control (Standard) T obacco use: F ormer smoker, W hen did you start smoking? 0 12/03/1988, W hen did you stop smoking? 0 12/06/1992, H ow long has it been since you last smoked? G reater than 10 years. S ocial History Substance Use Do you or have you ever smoked tobacco?: Former smoker How much tobacco do you smoke?: None Do you or have you ever used e-cigarettes or vape?: Never used electronic cigarettes What was the date of your most recent tobacco screening?: 11/14/2023 Has tobacco cessation counseling been provided?: No What is your level of alcohol consumption?: Occasional How many years have you consumed alcohol?: 30 Do you use any illicit or recreational drugs?: No Which illicit or recreational drugs have you used?: None Have you used IV drugs?: No What is your level of caffeine consumption?: Moderate Education and Occupation What is the highest grade or level of school you have completed or the highest degree you have received?: Some college, no degree Are you currently employed?: Yes Who is your employer?: [employer] Marriage and Sexuality What is your relationship status?: Single Are you sexually active?: No Do you use protection during sex?: No How many children do you have?: 3 Home and Environment Are there any guns present in your home?: No Advance Directive Do you have an advance directive?: No Do you have a medical power of director nursing service?: No. * Medications: T aking Phentermine HCl 30 MG Capsule TAKE 1 CAPSULE BY MOUTH EVERY DAY Oral , Taking hydrOXYzine HCl 25 MG Tablet TAKE 1 TABLET BY MOUTH TWICE DAILY NEEDED FOR ITCHING Oral , Taking Omeprazole 20 MG Capsule Delayed Release TAKE 1 CAPSULE BY MOUTH TWICE DAILY Oral , Taking buPROPion HCl ER (SR) 150 MG Tablet Extended Release 12 Hour TAKE 1 TABLET BY MOUTH TWICE DAILY Oral , Taking Levothyroxine Sodium 50 MCG Tablet TAKE 1 TABLET BY MOUTH DAILY Oral , Taking Hydroxychloroquine Sulfate 200 MG Tablet TAKE 2 TABLETS BY MOUTH TWICE DAILY Oral , Taking Lissette-D Allergy & Congestion 60-120 MG Tablet Extended Release 12 Hour TAKE 1 TABLET BY MOUTH EVERY 12 HOURS NEEDED FOR CONGESTION Oral , Taking DULoxetine HCl 60 MG Capsule Delayed Release Particles 1 capsule Oral Once a day , Notes to Pharmacist: total dose 90 mg, Taking Escitalopram Oxalate 10 MG Tablet 1 tablet at bedtime Oral Once a day , Taking Atomoxetine HCl 80 MG Capsule 1 capsule in the morning Orally Once a day , stop date 03/21/2024, Notes to Pharmacist: d/c 40mg, Discontinued Leflunomide 10 MG Tablet TAKE 1 TABLET BY MOUTH DAILY Oral , Discontinued DULoxetine HCl 30 MG Capsule Delayed Release Particles 1 capsule Orally Once a day , Notes to Pharmacist: total dose 90 mg, Discontinued Atomoxetine HCl 25 MG Capsule 1 capsule in the morning x 1 wk, then increase to 40mg cap Orally once a day , Notes: pt request resend [facility] instead, Medication List reviewed and reconciled with the patient * Allergies: N .K.D.A. Objective: * Vitals: B P:127/89mm Hg, HR:71/min, Wt:167lbs, Wt-k.75 kg, Ht: 65.00 in, Ht-cm: 165.10 cm, BMI:27.79Index, Body Surface Area: 1.86. * Examination: P sychiatry: Appearance: C onstitutional: Appearance alert, well-groomed, clean, appears well rested. No acute physical distress. Behavior: eye contact good, cooperative, pleasant. Affect / mood: a ppropriate, full range. Attention: n ormal in conversation. Attitude: c ooperative. Suicidal ideation: n one. Memory status: n o impairment noted. Degree of awareness of surroundings: w ithin normal limits.? Delusions: n o. Hallucinations: n o. Insight: g ood. Intellectual functioning: n o impairment noted. Judgement: g ood. Orientation: a wake, alert and oriented x 3. Perceptual disorders: n o perceptual disorder noted. Psychomotor activity: w ithin normal range. Speech / language: a ppropriate pitch/modulation, clear and coherent, normal rate, volume, and articulation (RVR), proper grammar used. Thought content: a ppropriate. Thought process: i ntact. Assessment: * Assessment: 1. A DHD (attention deficit hyperactivity disorder), combined type - F90.2 (Primary) 2 . M ajor depressive disorder, recurrent, mild - F33.0 3 . G eneralized anxiety disorder - F41.1 4 . P anic attacks - F41.0 Plan: * Treatment: 2. M ajor depressive disorder, recurrent, mild Refill DULoxetine HCl Capsule Delayed Release Particles, 60 MG, 1 capsule, Oral, Once a day, 90 days, 90 Capsule, Refills 0, Notes to Pharmacist: d/c 30mg caps; R efill Escitalopram Oxalate Tablet, 10 MG, 1 tablet at bedtime, Oral, Once a day, 90 days, 90 Tablet, Refills 0; S top buPROPion HCl ER (SR) Tablet Extended Release 12 Hour, 150 MG, TAKE 1 TABLET BY MOUTH TWICE DAILY, Oral. ? Notes: stop wellbutrinSR 150mg once a day cont duloxetine DR 60mg daily (she decreased between visits) cont lexapro 10mg qhs (monitor wt/appetite, mood, anxiety) cont therapy 3. G eneralized anxiety disorder Notes: as above 4. P anic attacks Notes: as above Clinical Notes: had xanax from PCP, reports not taking recently (last filled 08/27/23) * Follow Up: 2 Months * Billing Information: * Visit Code: [id number] OFFICE OUTPATIENT VISIT 25 MINUTES DETAILED HISTORY AND EXAM/MODERATE MEDICAL DECISION MAKING. 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 No acute physical distress. Behavior: eye contact good, cooperative, pleasant Attitude: cooperative Psychomotor activity: within normal rang e Attention: normal in conversati on Degree of awareness of surroundings: wit hin normal limits Orientation: awake, alert and shelbie ented x 3 Affect / mood: appropriate, full ra nge Speech / language: appropriate pitch/mo dulation, clear and coherent, normal rate, volume, and articulation (RVR), proper grammar used Insight: good Judgement: good Thought process: intact Thought content: appropriate Perceptual disorders: no perceptual diso rder noted Suicidal ideation: none Intellectual functioning: no impairment noted Memory status: no impairment noted Delusions: no Hallucinations: no
--- OUTSIDE RECORDS SUMMARY | 2024-08-26 07:21 | XMS_ITS | Data Portability ---
Author Organization [facility] [place] Address [address] [place] [address] Care Team Providers Care Supervisor Electronic Testing Name Role Phone LETI SALINAS Primary Care Provider [phone] DELBERT SHIN Primary Care Provider Assessment Encounter Date Assessment Date Assessment LastModified by Organization Details LastModified Time 09/07/2021 09/07/2021 Annual gynecological exam performed. Patient will come back in a year unless there are new symptoms. Not available 09/07/2021 12:57:40 10/11/2022 10/11/2022 Annual gynecological exam performed. Patient will come back in a year unless there are new symptoms. [email or web address] Not available 10/11/2022 11:58:23 10/31/2023 10/31/2023 Annual gynecological exam performed. Patient will come back in a year unless there are new symptoms. [email or web address] Not available 10/31/2023 13:54:04 Plan of Treatment Reminders Order Date Submit Date Provider Last Modified By Organization Details Last Modified Time Details Appointments None recorded . Lab hsv (1+2) igm, serum 2020 021 [facility] (Lab), [address], [address], 18:49:12 hsv-1 igg Ab, serum 2020 021 [facility] (Lab), [address] [place], [address], 18:49:10 hsv-2 igg Ab, serum 2020 [facility] (Lab), [address] [facility], [place], [address], 18:49:11 hbcab (hepatit is B core Ab) igm, serum 2020 [facility] (Lab), [address] [facility], [place], [address], 18:49:12 HBsAg (hepatit is B surface Ag), serum 2020 [facility] (Lab), [address] [facility], [place], [address], 18:49:10 hepatiti s C virus Ab, serum 2020 [facility] (Lab), [address] [facility], [place], [address], 18:49:10 unlisted lab - HIV 1/2 antigen/ antibody , reflex confirma tion 2020 [facility] (Lab), [address] [facility], [place], [address], 18:49:11 RPR (rapid plasma reagin), serum 2020 [facility] (Lab), [address] [facility], [place], [address], 18:49:12 Referral None recorded . Procedures None recorded . Surgeries None recorded . Imaging MAMMO, screenin g, bilatera l [address] [facility], [address], [place] [address], [place], [address], 4 14:54:58 MAMMO, diagnost ic, digital, bilatera l [address] [facility], [address], [address], [place], [address], 2 14:32:28 US, breast, bilatera l, w/ axilla [address], [address], [address], [place], [address], 2 14:32:28 Medication Orders phenterm ine 15 mg capsule 2023 024 [facility]173, [address], [place], [id number], 4 14:29:46 topirama te 50 mg tablet 2023 024 [facility], [address], [place], [id number], 4 17:41:04 estradio l 2 mg tablet 2023 024 TOMI Not available 4 14:06:50 Wegovy 0.25 mg/0.5 mL subcutan eous pen injector 2023 024 [email or web address] [facility] #22607, [address], [place], [id number], 4 15:44:54 clotrima zole-bet amethaso ne 1 %-0.05 % topical cream 2023 024 TOMI Not available 4 14:12:53 medroxyp rogester one 10 mg tablet 2022 023 [email or web address] Not available 4 14:06:05 nystatin -triamci nolone 100,000 unit/gra m-0.1 % topical ointment 2021 [facility], [address] [facility] , [place], [address], 3 12:04:37 Diflucan 150 mg tablet 2020 [email or web address] [facility] #28440, [address] [facility], [place], [place], [id number], 4 13:57:35 nystatin -triamci nolone 100,000 unit/gra m-0.1 % topical ointment 2020 [facility] #73160, [address] [facility], [place], [place], [id number], 3 12:04:37 Patient TargetsNo targets recorded. Patient InstructionsNo instructions recorded. Reason for Referral None Reported. Results Created Date Observation Date Name Description Value Unit Range Abnormal Flag Note LastModifiedBy Organization Detail LastModifiedTime 04/06/20 21 04/06/2021 HEPAT ITIS B SURFA CE ANTIG EN hepatitis B surface antigen Non-re active non-re active This assay was perfo rmed using [employer] n reage nts and test kits. Value s obtai fausto with other assay metho ds or kits canno t be used inter walker eably . Not Available [facility] (Lab) [address], [place], [address], 04/08/2021 18:49:10 04/06/20 21 04/06/2021 HEPAT ITIS C ANTIB KANDICE SCREE N, REFLE X TO CONFI RMATI ON hepatitis C antibody Non-re active non-re active This assay was perfo rmed using [employer] reage nts and test kits. Value s obtai fausto with other assay metho ds or kits canno t be used inter walker eably . Not Available [facility] (Lab) [address] [facility], [place], [address], 04/08/2021 18:49:10 04/06/20 21 04/06/2021 HERPE S SMPLE X VIRUS TYPE 1 SPECI FIC AB, IGG herpes simplex virus 1 IgG Negati ve negati ve Not Available [facility] (Lab) [address], [place], [address], 04/08/2021 18:49:10 04/06/20 21 04/06/2021 HERPE S SMPLE X VIRUS TYPE 1 SPECI FIC AB, IGG herpes simplex virus 1 IgG, quant <0.2 ai 0.0-0. 8 Not Available [facility] (Lab) [address], [place], [address], 04/08/2021 18:49:10 04/06/20 21 04/06/2021 HERPE S SIMPL EX VIRUS TYPE 2 SPECI FIC AB, IGG herpes simplex virus 2 IgG Negati ve negati ve Not Available [facility] (Lab) [address] [place], [address], 04/08/2021 18:49:11 04/06/20 21 04/06/2021 HERPE S SIMPL EX VIRUS TYPE 2 SPECI FIC AB, IGG herpes simples virus 2 IgG, quant <0.2 ai 0.0-0. 8 Not Available [facility] (Lab) [address] [place], [address], 04/08/2021 18:49:11 04/06/20 21 04/06/2021 HIV 1/2 ANTIG EN/AN TIBOD Y, REFLE X CONFI RMATI ON HIV Ag-Ab total quant 0.11 idx <1.00 Not Available [facility] (Lab) [address] [place], [address], 04/08/2021 18:49:11 04/06/20 21 04/06/2021 HIV 1/2 ANTIG EN/AN TIBOD Y, REFLE X CONFI RMATI ON HIV Ag-Ab total Non-re active non-re active Not Available [facility] (Lab) [address] [facility], [place], [address], 04/08/2021 18:49:11 04/06/20 21 04/06/2021 HIV 1/2 ANTIG EN/AN TIBOD Y, REFLE X CONFI RMATI ON HIV-1 antibody quant 0.06 idx <1.00 Not Available [facility] (Lab) [address], [place], [address], 04/08/2021 18:49:11 04/06/20 21 04/06/2021 HIV 1/2 ANTIG EN/AN TIBOD Y, REFLE X CONFI RMATI ON HIV-1 antibody Non-re active non-re active Not Available [facility] (Lab) [address], [place], [address], 04/08/2021 18:49:11 04/06/20 21 04/06/2021 HIV 1/2 ANTIG EN/AN TIBOD Y, REFLE X CONFI RMATI ON HIV-1 antigen (P24) quant 0.11 idx <1.00 Not Available [facility] (Lab) [address] [place], [address], 04/08/2021 18:49:11 04/06/20 21 04/06/2021 HIV 1/2 ANTIG EN/AN TIBOD Y, REFLE X CONFI RMATI ON HIV-1 antigen (P24) Non-re active non-re active Not Available [facility] (Lab) [address] [place], [address], 04/08/2021 18:49:11 04/06/20 21 04/06/2021 HIV 1/2 ANTIG EN/AN TIBOD Y, REFLE X CONFI RMATI ON HIV-2 antibody quant 0.04 idx <1.00 Not Available [facility] (Lab) [address] [place], [address], 04/08/2021 18:49:11 04/06/20 21 04/06/2021 HIV 1/2 ANTIG EN/AN TIBOD Y, REFLE X CONFI RMATI ON HIV-2 antibody Non-re active non-re active HIV testi ng is perfo rmed using [employer]assa y techn ology . The final overa ll HIV Ag-Ab resul t is deter mined based on the final resul t for each indiv idual dani te. If any of the dani farida has 2 or more repli cates that are REACT MICHEL, the final overa ll HIV Ag-Ab resul t is also React michel. A Non-R eacti ve test resul t at any point in the inves tigat ion of indiv idual subje cts does not precl ude the possi bilit y of expos ure to or infec tion with HIV-1 and/o r HIV-2 . Non-R eacti ve resul ts can occur if the quant ity of marke r prese nt in the sampl e is below the detec tion limit s of the assay . React michel speci mens must be inves tigat ed by addit ional , more speci fic suppl ement al tests . Speci men confi rmati on will be perfo rmed by the [employer] HIV 1/2 Suppl ement al Assay . The perfo rmanc e of this assay has not been estab lishe d for neona farida and the assay shoul d not be used in indiv idual s young er than 2 years of age. Not Available [facility] (Lab) [address], [place], [address], 04/08/2021 18:49:11 04/06/20 21 04/06/2021 HEPAT ITIS B CORE, IGM hepatitis B core IgM antibody Negati ve negati ve Not Available [facility] (Lab) [address], [place], [address], 04/08/2021 18:49:12 04/06/20 21 04/06/2021 RPR SCREE N/REF AMADO TITER /FTA RPR screen Nonrea ctive nonrea ctive Not Available [facility] (Lab) [address], [place], [address], 04/08/2021 18:49:12 04/06/20 21 04/06/2021 HERPE S SIMPL EX VIRUS , 1 AND 2 IGM, IFA hsv 1 IgM screen NEGATI VE negati ve Not Available [facility] (Lab) [address], [place], [address], 04/08/2021 18:49:12 04/06/20 21 04/06/2021 HERPE S SIMPL EX VIRUS , 1 AND 2 IGM, IFA hsv 2 IgM screen NEGATI VE negati ve The IFA proce dure for measu ring IgM antib odies to HSV 1 and HSV 2 detec ts both type- commo n and type- speci fic HSV antib odies . Thus, IgM react ivity to both HSV 1 and HSV 2 may repre sent cross -reac tive HSV antib odies rathe r than expos ure to both HSV 1 and HSV 2. This assay was devel kged and its perfo rmanc e frank cteri stics have been deter mined by [employer]. Perfo rmanc e frank cteri stics refer to the dani tical perfo rmanc e of the test. Perfo rming Organ izati on Tomr noreen n: Site ID: [id number] Name: [employer] sylvester Jean Addre ss: [id number] [place] [address] Direc tor: Camden sprague M.D. Not Available [facility] (Lab) [address] [facility], [place], [address], 04/08/2021 18:49:12 04/06/20 21 04/06/2021 VAGIN ITIS/ VAGIN OSIS, DNA PROBE reshma sp. detection, direct probe Negati ve negati ve Not Available [facility] (Lab) [address] [place], [address], 04/12/2021 23:37:53 04/06/20 21 04/06/2021 VAGIN ITIS/ VAGIN OSIS, DNA PROBE gardnerella vag. detection, direct probe Negati ve negati ve Not Available [facility] (Lab) [address], [place], [address], 04/12/2021 23:37:53 04/06/20 21 04/06/2021 VAGIN ITIS/ VAGIN OSIS, DNA PROBE trichomonas vag. detection, direct probe Negati ve negati ve Not Available [facility] (Lab) [address], [place], [address], 04/12/2021 23:37:53 04/06/20 21 04/06/2021 CULTU RE: HERPE S SIMPL EX VIRUS (HSV) , REFLE X TYPIN G source SWAB Not Available [facility] (Lab) [address] [facility], [place], [address], 04/12/2021 23:37:54 04/06/20 21 04/06/2021 CULTU RE: HERPE S SIMPL EX VIRUS (HSV) , REFLE X TYPIN G hsv culture, body fluid NOT ISOLAT ED REFER ENCE RANGE : NOT ISOLA RHONA Perfo rming Organ izati on Infor matio n: Site ID: [id number] Name: [facility] Addre ss: [id number] [address] [facility] [place] [address] Direc tor: Lynda schulte MD Not Available [facility] (Lab) [address], [place], [address], 04/12/2021 23:37:54 04/06/20 21 04/06/2021 urina lysis , dipst ick Leukocytes neg Not Available Sol perez [address], [place], [address], 04/06/2021 16:15:49 04/06/20 21 04/06/2021 urina lysis , dipst ick Nitrite neg Not Available [address] [place], [address], 04/06/2021 16:15:49 04/06/20 21 04/06/2021 urina lysis , dipst ick Urobilinogen neg Not Available [facility] rosa [address], [place], [address], 04/06/2021 16:15:49 04/06/20 21 04/06/2021 urina lysis , dipst ick Protein neg Not Available [place] [address], [place], [address], 04/06/2021 16:15:49 04/06/20 21 04/06/2021 urina lysis , dipst ick pH 6 Not Available [place] [address], [place], [address], 04/06/2021 16:15:49 04/06/20 21 04/06/2021 urina lysis , dipst ick Specific [place] 1.020 Not Available [facility] [address], [place], [address], 04/06/2021 16:15:49 04/06/20 21 04/06/2021 urina lysis , dipst ick Ketone neg Not Available [place] [address], [place], [address], 04/06/2021 16:15:49 04/06/20 21 04/06/2021 urina lysis , dipst ick Bilirubin neg Not Available [facility] [address], [place], [address], 04/06/2021 16:15:49 04/06/20 21 04/06/2021 urina lysis , dipst ick Glucose neg Not Available [place] [address], [place], [address], 04/06/2021 16:15:49 10/01/17 2104/06/2021 urina lysis , dipst ick Appearance clear Not Available [facility] [address], [place], [address], 04/06/2021 16:15:49 04/06/2004/06/2021 urina lysis , dipst ick Color yellow Not Available [place] [address], [place], [address], 04/06/2021 16:15:49 Result Notes None recorded. Problems Name Problem SNOMED Code Status Onset Date Resolution Date Notes Provider Name and Address Organization Details Recorded Time Polyp of cervix 53436715 Completed 201707/20/2020 Polyp of cervix uteri;Pr actice ID: [id number] Susan ball, [facility] 15:34:00 Procedur e on [place] [employer] inary system Completed 201707/20/2020 Encounte r for surgical aftcr followin g surgery on the sys;Prac silke ID: 0001 Ssuan ball [facility] 15:34:08 Postoper ative care Completed 201707/20/2020 Encounte r for surgical aftcr followin g surgery on the sys;Prac silke ID: 0001 Susan ball, [facility] 15:34:03 Acute vaginiti s [id number] Completed 201707/20/2020 Acute vaginiti s;Practi ce ID: 0001 Susan ball, [facility] 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 15:34:23 Screenin g for malignan t neoplasm of rectum Completed 201807/20/2020 Encounte r for screenin g for malignan t neoplasm of rectum;P ractice ID: 0001 Susan Cisse [facility] 15:34:16 Pelvic and perineal pain [id number] Completed 201907/20/2020 Pelvic and perineal pain;Pra ctice ID: 0001 Susan Cisse [facility] 15:33:56 Sexual function painful Completed 201907/20/2020 Unspecif ied dyspareu ronnie;Prac silke ID: 0001 Susanvaishnavi Cisse [facility] 15:34:19 Finding of menstrua l bleeding Completed 201607/20/2020 Excessiv e and frequent menstrua tion with regular cycle;Re corded Elsewher e: No Locat ion: [facility] S ource: [employer] petra: N Practi ce ID: 0001 Dawson lable Time: 08:45:00 AM Susan Cisse [facility] 15:33:22 Lymphoep ithelial cyst of mouth [id number] Completed 201704/05/2021 Dermoid cyst;Rec orded Elsewher e: No Locat ion: [facility] S ource: [employer] petra: N Practi ce ID: 0001 [place] lable Time: 03:30:00 PM [facility] 16:21:[address] Concept Completed 201707/20/2020 Encntr for general adult medical exam w/o abnormal findings ;Recorde d Elsewher e: No Locat ion: [facility] S ource: [employer] petra: N Practi ce ID: 0001 [place] lable Time: 02:30:00 PM Susan Cisse [facility] 1 15:34:21 Imaging result abnormal [id number] Completed 201607/20/2020 Abnormal findings on diagnost ic imaging of body structur es;Recor ded Elsewher e: No Locat ion: [facility] S ource: [facility] petra: N Rojelioti ce ID: 0001 [place] lable Time: 08:45:00 AM Susan Cisse [facility], [facility] 15:33:41 Hypertro phy of uterus [id number] Completed 201707/20/2020 Enlarged uterus;R ecorded Elsewher e: No Locat ion: [facility] S ource: [facility] petra: N Rojelioti ce ID: 0001 [place] lable Time: 02:30:00 PM Susan Cisse [facility] 1 15:33:43 Cyst of ovary Completed 201704/05/2021 Unspecif ied ovarian cyst, unspecif ied side;Rec orded Elsewher e: No Locat ion: [facility] S ource: [facility] petra: Gracie Musa ce ID: 0001 [place] lable Time: 03:00:00 PM Beverly Mark [facility] 1 16:21:42 Lesion of ovary Completed 201607/20/2020 Other ovarian cyst, right side;Rec orded Elsewher e: No Locat ion: [facility] S ource: [facility] petra: N Rojelioti ce ID: 0001 [place] lable Time: 09:15:00 AM Susan Cisse [facility] 1 15:33:17 Speciali zed medical examinat ion Completed 201307/20/2020 Other specifie d chlamydi al diseases ;Recorde d Elsewher e: No Locat ion: [facility] S ource: [facility] petra: Gracie Serratoti ce ID: 0001 [place] lable Time: 10:30:00 AM Susan ball [facility] 1 15:34:29 Pregnanc y test negative [id number] Completed 201407/20/2020 Pregnanc y examinat ion or test, negative result;R ecorded Elsewher e: No Locat ion: [facility] S ource: [employer] petra: N Rojelioti ce ID: 0001 [place] lable Time: 12:00:00 PM Susan ball, [facility] 1 15:34:05 Removal of intraute rine device Completed 201607/20/2020 Encounte r for removal of intraute rine contrace ptive device;R ecorded Elsewher e: No Locat ion: [facility] N Rojelioti ce ID: 0001 [place] lable Time: 02:30:00 PM Susan ball, [facility] 1 15:34:10 Menstrua tion finding Completed 201407/20/2020 Excessiv e menstrua l bleeding ;Recorde d Elsewher e: No Locat ion: [facility]: N Practi ce ID: 0001 [place] lable Time: 10:15:00 AM Susan ball, [facility] 1 15:33:53 Venereal disease screenin g Completed 201307/20/2020 Screenin g examinat ion for venereal disease; Recorded Elsewher e: No Locat ion: [facility]: N Practi ce ID: 0001 [place] lable Time: 10:30:00 AM Susan ball [facility] 1 15:34:31 Uses IUD (intraut erine device) contrace ption [id number] Completed 201407/20/2020 Surveill ance of intraute rine contrace ptive device;R ecorded Elsewher e: No Locat ion: [facility] S ource: [employer] petra: N Practi ce ID: 0001 [place] lable Time: 10:30:00 AM Susan blal, [facility] 1 15:33:48 Insertio n of intraute rine contrace ptive device Completed 201407/20/2020 INSERTIO N OF IUD;Edwin rded Elsewher e: No Locat ion: [facility] S ource: [employer] petra: N Practi ce ID: 0001 [place] lable Time: 12:00:00 PM Susan ball, [facility] 1 15:33:46 Screenin g for malignan t neoplasm of cervix Completed 201307/20/2020 Screenin g for malignan t neoplasm s of the cervix;R ecorded Elsewher e: No Locat ion: [facility] S ource: [employer] petra: N Practi ce ID: 0001 [place] lable Time: 10:30:00 AM Susan Cisse lizzy, [facility] 1 15:34:14 Adult health examinat ion Completed 201307/20/2020 ROUTINE MEDICAL EXAM;Rec orded Elsewher e: No Locat ion: [facility] S ource: [employer] petra: N Practi ce ID: 0001 [place] lable Time: 10:30:00 AM Susan ball, [facility] 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 15:34:26 Educatio n Completed 201507/20/2020 Encounte r for other general counseli ng and advice on contrace ption;Re corded Elsewher e: No Locat ion: Salvador blanchard [facility] S ource: [employer] petra: N Dimple ce ID: 0001 [place] lable Time: 10:30:00 AM Susan ball [facility] 15:33:19 Follicul ar cyst of right ovary [id number] 104034 Completed 201707/20/2020 Follicul ar cyst of right ovary;Pr actice ID: 0001 Susan ball, [facility] 15:33:31 Follicul ar cyst of left ovary [id number] 324375 Completed 201707/20/2020 Follicul ar cyst of left ovary;Pr actice ID: 0001 Susan ball [facility] 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 15:33:14 Polyp of corpus uteri [id number] Completed 201704/05/2021 Polyp of corpus uteri;Pr actice ID: 0001 Beverly Flores [facility] 16:21:46 Problem Notes None recorded. Procedures Surgical History Date Name Laterality Status Provider Name and Address Organization Details Recorded Time 08/30/19 23 Date of Last Mammogram completed Faviola Cruz [facility] 10/31/2023 14:00:42 07/11/19 21 completed Susan Cisse [facility] 09/23/2020 14:29:47 07/11/19 21 completed Beverly Flores [facility] 04/06/2021 13:59:15 05/01/20 20 Date of [facility] 14:29:47 08/21/19 20 [facility]2020 14:29:47 01/09/20 19 Date of Last Pap Smear completed Faviola Cruz [facility] 10/31/2023 13:59:26 04/17/20 18 [facility]2020 14:29:47 04/17/20 18 [facility]/2020 14:29:47 04/17/20 18 [facility]/2020 14:29:47 03/31/20 18 laparoscopic total hysterectomy completed [facility] 07/20/2020 15:52:03 02/26/20 18 endometrial biopsy completed [facility] 07/23/2020 15:03:40 05/28/20 11 Appendectomy completed [facility] 07/20/2020 15:49:04 07/01/19 06 [facility]2020 15:02:17 03/01/20 05 Tubal Ligation [facility]/20/2020 15:49:13 07/01/19 05 [facility] 07/20/2020 15:49:42 Tubal Ligation completed Beverly Flores [facility] 04/06/2021 13:59:26 Total Hysterectomy completed [facility] [facility] 04/06/2021 13:59:26 Ovarian Cystectomy completed [facility] 04/06/2021 13:59:26 Appendectomy completed [facility] 04/06/2021 13:59:26 Colposcopy completed [facility] 04/06/2021 13:59:26 Orthopedic Surgery completed [facility] 04/06/2021 13:59:26 Oophorectomy completed [facility] 04/06/2021 15:34:00 colonoscopy completed Medina Larsen [facility] [address], [place], [address], [facility] 09/07/2021 13:17:09 Imaging Results None recorded. Procedure Notes None recorded. Medical Equipment None Reported. Allergies No known drug allergies Medications Name Sig Start Date Stop Date Status Note LastModified by Organization Details LastModified Time eq allergy relf d 60-120mg tab TAKE 1 TABLET BY MOUTH EVERY 12 HOURS NEEDED FOR NASAL CONGESTI ON 09/07 completed Not Available Not Available Not Available cyclobenz aprine 10 mg tablet TAKE 1 TABLET BY MOUTH AT BEDTIME NEEDED FOR MUSCLE SPASM 10/30 completed Not Available Not Available Not Available amoxicill in 500 mg capsule 04/06 completed Not Available Not Available Not Available medroxypr ogesteron e 10 mg tablet TAKE 1 TABLET BY MOUTH EVERY DAY WITH A MEAL 10/30 completed Not Available Not Available Not Available Mirena 21 mcg/24 hr (up to 8 years) 52 mg intrauter ine device 09/20 completed Prescrib audrey He e: Yes Loca tion: [facility] blanchard [facility] Benjy odify By: joan thomas DateTime : 12/28/19 15 12:00:00 PM Not Available Not Available Not Available tolmetin 600 mg tablet TAKE 1 TABLET BY MOUTH THREE TIMES DAILY 07/28 completed Not Available Not Available Not Available bupropion HCl SR 150 mg tablet,12 hr sustained -release TAKE 1 TABLET BY MOUTH TWICE DAILY active Not Available Not Available No t Available azelastin e 0.05 % eye drops INSTILL ONE DROP INTO THE AFFECTED EYE TWICE DAILY DIRECTED 07/28 completed Not Available Not Available Not Available nystatin 100,000 unit/mL oral suspensio n 07/28 completed Not Available Not Available Not Available prednison e 10 mg tablet TAKE 1 TABLET BY MOUTH ONCE DAILY 09/07 completed Not Available Not Available Not Available doxycycli ne hyclate 100 mg capsule TAKE 1 CAPSULE BY MOUTH TWICE DAILY 10/30 completed Not Available Not Available Not Available clindamyc in HCl 300 mg capsule take 1 capsule by oral route every 12 hours for 7 days 07/24 completed Prescrib ed Elsewher e: No Locat ion: [facility] odify By: jerod Patel ter DateTime : 08/26/19 04:28:09 PM Not Available Not Available Not Available cetirizin e 10 mg tablet TAKE 1 TABLET BY MOUTH EVERY DAY 10/30 completed Not Available Not Available Not Available ibuprofen 800 mg tablet TAKE 1 TABLET BY MOUTH THREE TIMES DAILY WITH FOOD NEEDED FOR PAIN 10/11 completed Not Available Not Available Not Available nystatin 100,000 unit/gram topical ointment APPLY OINTMENT TOPICALL Y TO AFFECTED AREA TWICE DAILY 10/11 completed Not Available Not Available Not Available fluconazo le 150 mg tablet TAKE 1 TABLET BY MOUTH 1 TIME 10/30 completed Not Available Not Available Not Available valacyclo vir 1 gram tablet TAKE 1 TABLET BY MOUTH THREE TIMES DAILY active Not Available Not Available No t Available sumatript an 100 mg tablet TAKE ONE TABLET BY MOUTH AT ONSET OF HEADACHE , IF NO RELIEF, MAY REPEAT 1 TAB AFTER AT LEAST 2 HOURS MAX OF 2 TABS IN 24 HOURS 10/30 completed Not Available Not Available Not Available medroxypr ogesteron e 2.5 mg tablet TAKE 4 TABLETS BY MOUTH EVERY DAY 10/30 completed Not Available Not Available Not Available hydrocodo ne 5 mg-acetam inophen 325 mg tablet TAKE 1 TABLET BY MOUTH TWICE DAILY NEEDED FOR SEVERE PAIN 10/11 completed Not Available Not Available Not Available ondansetr on HCl 8 mg tablet TAKE 1 TABLET BY MOUTH EVERY 8 HOURS NEEDED FOR NAUSEA AND VOMITING 10/11 completed Not Available Not Available Not Available fluconazo le 200 mg tablet Take 1 pill by oral route and another 2 days later active Not Available Not Available No t Available ondansetr on HCl 4 mg tablet TAKE 1 TO 2 TABLETS BY MOUTH EVERY 8 HOURS NEEDED FOR NAUSEA OR VOMITING 10/30 completed Not Available Not Available Not Available Synthroid 100 mcg tablet TAKE 1 TABLET BY MOUTH ONCE DAILY 07/24 completed Not Available Not Available Not Available clonazepa m 0.5 mg tablet TAKE 1 TABLET BY MOUTH AT BEDTIME NEEDED FOR SLEEP 09/07 completed Not Available Not Available Not Available medroxypr ogesteron e 5 mg tablet TAKE 1 TABLET BY MOUTH ONCE DAILY active Not Available Not Available No t Available phentermi ne 15 mg capsule TAKE 1 CAPSULE BY MOUTH EVERY DAY 12/22 completed Not Available Not Available Not Available leflunomi de 10 mg tablet TAKE 1 TABLET BY MOUTH DAILY active Not Available Not Available No t Available metronida zole 500 mg tablet 04/06 completed Not Available Not Available Not Available phentermi ne 37.5 mg tablet TAKE 1 TABLET BY MOUTH EVERY DAY 02/16 completed Not Available Not Available Not Available acetamino phen 300 mg-codein e 30 mg tablet TAKE 1 TABLET BY MOUTH TWICE DAILY NEEDED FOR PAIN 10/11 completed Not Available Not Available Not Available prochlorp erazine maleate 10 mg tablet TAKE 1 TABLET BY MOUTH EVERY 8 HOURS NEEDED FOR NAUSEA AND VOMITING 10/11 completed Not Available Not Available Not Available sulfameth oxazole 800 mg-trimet hoprim 160 mg tablet TAKE 1 TABLET BY MOUTH EVERY 12 HOURS 09/07 completed Not Available Not Available Not Available omeprazol e 40 mg capsule,d elayed release TAKE 1 CAPSULE BY MOUTH TWICE DAILY 09/07 completed Not Available Not Available Not Available tramadol 50 mg tablet TAKE 1 TABLET BY MOUTH EVERY 6 HOURS NEEDED FOR PAIN active Not Available Not Available No t Available triamcino lone acetonide 0.1 % topical cream APPLY EXTERNAL LY TO THE AFFECTED AREA TWICE DAILY 09/07 completed Not Available Not Available Not Available phentermi ne 30 mg capsule TAKE 1 CAPSULE BY MOUTH EVERY DAY 12/22 completed Not Available Not Available Not Available levothyro xine 75 mcg tablet TAKE 1 TABLET BY MOUTH ONCE DAILY 10/30 completed Not Available Not Available Not Available terconazo le 80 mg vaginal supposito ry insert 1 supposit ory by vaginal route every day at bedtime for 3 nights 01/08 completed Prescrib ed Elsewher e: No Locat ion: [facility] blanchard [facility] odify By: jackeline kelseyunter DateTime : 10/04/19 09:09:31 AM Not Available Not Available Not Available nystatin- triamcino lone 100,000 unit/gram -0.1 % topical ointment APPLY TOPICALL Y TO THE AFFECTED AREA TWICE DAILY PRN 10/11 completed Not Available Not Available Not Available oxycodone -acetamin ophen 5 mg-325 mg tablet TAKE 1 TO 2 TABLETS BY MOUTH EVERY 4 TO 6 HOURS NEEDED FOR PAIN . DO NOT EXCEED 8 PER 24 HOURS 07/28 completed Not Available Not Available Not Available alprazola m 0.5 mg tablet TAKE 1/2 TABLET BY MOUTH TWICE DAILY NEEDED FOR ANXIETY 10/30 completed Not Available Not Available Not Available amoxicill in 875 mg tablet TAKE 1 TABLET BY MOUTH EVERY 12 HOURS 10/30 completed Not Available Not Available Not Available alprazola m 0.25 mg tablet TAKE 1 TABLET BY MOUTH TWICE DAILY NEEDED FOR ANXIETY 10/30 completed Not Available Not Available Not Available Metrogel Vaginal 0.75 % (37.5 mg/5 gram) insert 1 applicat orful by vaginal route every day at bedtime 01/08 completed Prescrib ed Elsewher e: No Locat ion: [facility] blanchard [facility] odify By: jackeline lebron DateTime : 06/25/20 18 03:00:00 PM Not Available Not Available Not Available omeprazol e 10 mg capsule,d elayed release take 2 capsule by oral route every day before a meal 01/08 completed Prescrib ed Elsewher e: Yes Loca tion: [facility] odify By: jackeline lebron DateTime : 06/25/20 18 03:00:00 PM Not Available Not Available Not Available estradiol 1 mg tablet TAKE1 tablet by oral route every day 10/30 completed Not Available Not Available Not Available clindamyc in 1 % topical gel APPLY THIN LAYER TOPICALL Y TO AFFECTED AREA ONCE DAILY 10/11 completed Not Available Not Available Not Available betametha sone valerate 0.1 % topical cream APPLY TOPICALL Y TO THE AFFECTED AREA TWICE DAILY 10/30 completed Not Available Not Available Not Available Synthroid 25 mcg tablet take 1 tablet by oral route every day 12/18 completed Prescrib ed Ying e: Yes Loca tion: [facility] odify By: gregory lebron DateTime : 08/23/19 17 02:30:00 PM Not Available Not Available Not Available meclizine 25 mg tablet TAKE 1 TABLET BY MOUTH THREE TIMES DAILY NEEDED FOR DIZZINES S active Not Available Not Available No t Available levothyro xine 50 mcg tablet TAKE 1 TABLET BY MOUTH DAILY active Not Available Not Available No t Available prednison e 2.5 mg tablet TAKE 2 TABLETS BY MOUTH TWICE DAILY FOR 5 DAYS THEN TAKE 1 TAB TWICE DAILY FOR 5 DAYS THEN 1 TAB DAILY FOR 5 DAYS AND THEN 1 TAB EVERY OTHER DAY FOR 5 DOSES THEN STOP 11/21 completed Not Available Not Available Not Available cephalexi n 500 mg capsule TAKE 1 CAPSULE BY MOUTH EVERY 6 HOURS 10/11 completed Not Available Not Available Not Available oseltamiv ir 75 mg capsule TAKE 1 CAPSULE BY MOUTH TWICE DAILY 10/11 completed Not Available Not Available Not Available tobramyci n 0.3 % eye drops INSTILL 1 DROP INTO LEFT EYE EVERY 4 HOURS NEEDED FOR CONJUNCT IVITIS FOR 7 DAYS 10/11 completed Not Available Not Available Not Available triamcino lone acetonide 0.1 % topical ointment APPLY OINTMENT TOPICALL Y TO AFFECTED AREA TWICE DAILY 10/11 completed Not Available Not Available Not Available nystatin 100,000 unit/gram topical cream APPLY TO AFFECTED AREA TWICE DAILY FOR 5-7 DAYS 09/07 completed Not Available Not Available Not Available clotrimaz ole-betam ethasone 1 %-0.05 % topical cream APPLY TO THE AFFECTED AND SURROUND ING AREAS OF SKIN BY TOPICAL ROUTE 2 TIMES PER DAY IN THE MORNING AND EVENING FOR 2 WEEKS 2024 active Not Available Not Available Not Butch gordon Lissette-D 12 Hour 60 mg-120 mg tablet,ex tended release TAKE 1 TABLET BY MOUTH EVERY 12 HOURS NEEDED FOR CONGESTI ON active Not Available Not Available No t Available Synthroid 88 mcg tablet TAKE 1 TABLET BY MOUTH ONCE DAILY 10/11 completed Not Available Not Available Not Available betametha sone dipropion ate 0.05 % topical cream APPLY TOPICALL Y TO THE AFFECTED AREA TWICE DAILY NEEDED FOR RASH 10/30 completed Not Available Not Available Not Available gabapenti n 300 mg capsule 07/24 completed Not Available Not Available Not Available buspirone 7.5 mg tablet TAKE 1 TABLET BY MOUTH TWICE DAILY NEEDED FOR ANXIETY 10/11 completed Not Available Not Available Not Available omeprazol e 20 mg capsule,d elayed release TAKE 1 CAPSULE BY MOUTH TWICE DAILY active Not Available Not Available No t Available estradiol 2 mg tablet Take 1 tablet by mouth once daily for 90 days 2023 active Not Available Not Available Not Butch gordon [address] 10 mg tablet TAKE 1 TABLET BY MOUTH AT BEDTIME 10/30 completed Not Available Not Available Not Available hydroxyzi ne HCl 25 mg tablet TAKE 1 TABLET BY MOUTH TWICE DAILY NEEDED FOR ITCHING active Not Available Not Available No t Available codeine 10 mg-guaife nesin 100 mg/5 mL oral liquid TAKE 10 ML BY MOUTH EVERY DAY AT BEDTIME 10/30 completed Not Available Not Available Not Available mupirocin 2 % topical ointment APPLY OINTMENT TOPICALL Y THREE TIMES DAILY TO AFFECTED AREA 10/11 completed Not Available Not Available Not Available ergocalci ferol (vitamin D2) 1,250 mcg (50,000 unit) capsule TAKE 1 CAPSULE BY MOUTH ONCE A WEEK 10/30 completed Not Available Not Available Not Available azelastin e 137 mcg (0.1 %) nasal spray USE 1 TO 2 SPRAYS IN EACH NOSTRIL EVERY 12 HOURS active Not Available Not Available No t Available hydroxych loroquine 200 mg tablet TAKE 2 TABLETS BY MOUTH TWICE DAILY active Not Available Not Available No t Available cefuroxim e axetil 500 mg tablet TAKE 1 TABLET BY MOUTH EVERY 12 HOURS 10/30 completed Not Available Not Available Not Available levofloxa aramis 500 mg tablet 04/06 completed Not Available Not Available Not Available zolpidem 10 mg tablet TAKE 1 TABLET BY MOUTH AT BEDTIME NEEDED FOR SLEEP 10/30 completed Not Available Not Available Not Available albuterol sulfate HFA 90 mcg/actua tion aerosol inhaler INHALE 2 PUFFS BY MOUTH EVERY 4 TO 6 HOURS 10/30 completed Not Available Not Available Not Available SSD 1 % topical cream APPLY THIN LAYER TO AFFECTED AREA TWICE DAILY 10/11 completed Not Available Not Available Not Available ferrous sulfate 325 mg (65 mg iron) tablet,de layed release TAKE 1 TABLET BY MOUTH TWICE DAILY 10/11 completed Not Available Not Available Not Available ketoconaz ole 2 % topical cream APPLY CREAM TOPICALL Y TO AFFECTED AREA TWICE DAILY 10/11 completed Not Available Not Available Not Available ondansetr on 4 mg disintegr ating tablet DISSOLVE 1 TO 2 TABLETS ON THE TONGUE EVERY 8 HOURS NEEDED FOR NAUSEA OR VOMITING 10/30 completed Not Available Not Available Not Available clotrimaz ole 1 % topical cream APPLY TOPICALL Y TO THE AFFECTED AREA EVERY 12 HOURS FOR 2 WEEKS 10/30 completed Not Available Not Available Not Available phentermi ne 37.5 mg capsule TAKE 1 CAPSULE BY MOUTH EVERY DAY active Not Available Not Available No t Available gentamici n 0.1 % topical ointment APPLY TOPICALL Y TO THE AFFECTED AREA THREE TIMES DAILY 09/07 completed Not Available Not Available Not Available naproxen 500 mg tablet 09/07 completed Not Available Not Available Not Available progester one micronize d 100 mg capsule TAKE 1 CAPSULE BY MOUTH ONCE DAILY 10/11 completed Not Available Not Available Not Available amoxicill in 875 mg-potass ium clavulana te 125 mg tablet TAKE 1 TABLET BY MOUTH TWICE DAILY 10/30 completed Not Available Not Available Not Available oxycodone 5 mg tablet TAKE 1 TABLET BY MOUTH EVERY 12 HOURS NEEDED FOR PAIN 10/11 completed Not Available Not Available Not Available iron 18 mg tablet 01/08 completed Prescrib audrey He e: Yes Loca tion: [facility] odify By: [email or web address] Gary ncounter DateTime : 06/25/20 18 03:00:00 PM Not Available Not Available Not Available escitalop carmen 10 mg tablet TAKE 1/2 TABLET BY MOUTH EVERY NIGHT AT BEDTIME FOR 1 WEEK THEN TAKE 1 TABLET BY MOUTH EVERY NIGHT AT BEDTIME 10/30 completed Not Available Not Available Not Available escitalop carmen 20 mg tablet TAKE 1 TABLET BY MOUTH EVERY DAY AT BEDTIME active Not Available Not Available No t Available Premarin 0.625 mg/gram vaginal cream INSERT 1 GRAM VAGINALL Y NIGHTLY FOR 14 DAYS AND THEN DECREASE TO 1 GRAM TWICE WEEKLY THEREAFT ER 10/11 completed Not Available Not Available Not Available topiramat e 50 mg tablet TAKE 1 TABLET BY MOUTH TWICE DAILY active Not Available Not Available No t Available Ortho-Cyc jaguar (28) 0.25 mg-35 mcg tablet take 1 tablet by oral route every day 03/14 completed Prescrib ed Ying e: No Locat ion: [facility] odify By: amkuhjaime Blanchard ncounter DateTime : 08/23/19 17 02:30:00 PM Not Available Not Available Not Available duloxetin e 30 mg capsule,d elayed release TAKE 1 CAPSULE BY MOUTH EVERY DAY WITH 60 MG FOR TOTAL DOSE OF 90 MG active Not Available Not Available No t Available duloxetin e 60 mg capsule,d elayed release TAKE 1 CAPSULE BY MOUTH EVERY DAY 10/30 completed Not Available Not Available Not Available Constulos e 10 gram/15 mL oral solution TAKE 15 ML BY MOUTH NEEDED FOR CONSTIPA TION 09/07 completed Not Available Not Available Not Available omeprazol e 07/24 completed Not Available Not Available Not Available Synthroid 07/28 completed Not Available Not Available Not Available cetirizin e 07/24 completed Not Available Not Available Not Available Wellbutri n SR 07/24 completed Not Available Not Available Not Available Topamax 04/28 completed Not Available Not Available Not Available Cymbalta 07/24 completed Not Available Not Available Not Available FeroSul 325 mg (65 mg iron) tablet TAKE 1 TABLET BY MOUTH TWICE DAILY 10/30 completed Not Available Not Available Not Available Vicodin 5 mg-300 mg tablet take 1 tablet by oral route every 4 - 6 hours as needed for pain 06/25 completed Prescrib audrey blanchard: Yes Loca tion: [facility] Benjy mcghee By: vandana lebron DateTime : 04/28/20 03:30:00 PM Not Available Not Available Not Available baclofen 5 mg tablet TAKE 1 TABLET BY MOUTH THREE TIMES DAILY NEEDED FOR MUSCLE PAIN 10/11 completed Not Available Not Available Not Available Bijuva 1 mg-100 mg capsule 09/07 completed Not Available Not Available Not Available clindamyc in 1 % gel and sunscreen SPF 50 lotion 07/28 completed Not Available Not Available Not Available BinaxNOW COVID-19 Ag Self Test kit TEST DIRECTED TODAY 10/30 completed Not Available Not Available Not Available Wegovy 0.25 mg/0.5 mL subcutane ous pen injector 11/21 completed Not Available Not Available Not Available Paxlovid 300 mg (150 mg x 2)-100 mg tablets in a dose pack TAKE DIRECTED 10/11 completed Not Available Not Available Not Available Vitals Date Recorded Body height Body mass index (BMI) Body weight Systolic blood pressure Diastolic blood pressure Provider Name and Address Organization Details Last Updated DateTime 04/06/2021 162.56 cm 23.9 kg/m2 85307.34 g 124 mm[Hg] 83 mm[Hg] [facility] 1 15:33:26 Date Recorded Body height Body mass index (BMI) Body weight Systolic blood pressure Diastolic blood pressure Provider Name and Address Organization Details Last Updated DateTime 09/07/2021 162.56 cm 25.1 kg/m2 65003.49 g 126 mm[Hg] 74 mm[Hg] [facility] 2 12:58:47 Date Recorded Body height Body mass index (BMI) Body weight Systolic blood pressure Diastolic blood pressure Provider Name and Address Organization Details Last Updated DateTime 10/11/2022 162.56 cm 27.1 kg/m2 01542.88 g 130 mm[Hg] 82 mm[Hg] Keerthi Buchanan [facility] 3 11:58:45 Date Recorded Body height Body mass index (BMI) Body weight Systolic blood pressure Diastolic blood pressure Provider Name and Address Organization Details Last Updated DateTime 10/31/2023 162.56 cm 28.7 kg/m2 32728.93 g 122 mm[Hg] 79 mm[Hg] Faviola Cruz [facility] 4 13:54:43 Date Recorded Body height Body mass index (BMI) Body weight Systolic blood pressure Diastolic blood pressure Provider Name and Address Organization Details Last Updated DateTime 11/22/2023 162.56 cm 29.5 kg/m2 07574.89 g 132 mm[Hg] 81 mm[Hg] Vaishali Morocho [facility] 4 15:44:36 Social History Question Answer Notes LastModified by Organizat ion Details LastModified Time Tobacco Smoking Status Former Smoker Keerthi Buchanan [facility] 10/11/2022 11:58:52 Do You Have An Advance Directive? No Information not available 04/06/2021 What Is Your Level Of Alcohol Consumption? Occasional [email or web address] Information not available 07/20/2020 If You Are , What Was Your Level Of Alcohol Consumption Prior To ? None Information not available 10/11/2022 How Many Years Have You Consumed Alcohol? 20 Information not available 04/06/2021 Are You Blind Or Do You Have Difficulty Seeing? No Information not available 04/06/2021 What Is Your Level Of Caffeine Consumption? Occasional Information not available 04/06/2021 How Much Tobacco Do You Chew? None Information not available 04/06/2021 In The 14 Days Before Symptom Onset, Have You Had Close Contact With A Laboratory-confir med COVID-19 While That Case Was Ill? No Information not available 04/06/2021 In The 14 Days Before Symptom Onset, Have You Had Close Contact With A Person Who Is Under Investigation For COVID-19 While That Person Was Ill? No Information not available 04/06/2021 Have You Been To An Area Known To Be High Risk For COVID-19? No Information not available 04/06/2021 Are You Deaf Or Do You Have Serious Difficulty Hearing? No Information not available 04/06/2021 What Type Of Diet Are You Following? REGULAR Information not available 09/07/2021 What Is The Highest Grade Or Level Of School You Have Completed Or The Highest Degree You Have Received? [id number] Information not available 04/06/2021 What Is Your Occupation? [employer] Information not available 04/06/2021 Are There Any Guns Present In Your Home? No Information not available 04/06/2021 Have You Ever Been Counseled For Unhealthy Alcohol Use? No Information not available 10/11/2022 Do You Use Protection During Sex? No Information not available 04/06/2021 Do You Use Your Seat Belt Or Car Seat Routinely? Yes Information not available 04/06/2021 Do You Have Smoke And Carbon Monoxide Detectors In Your Home? Yes Information not available 04/06/2021 At What Age Did You Start Smoking Tobacco? 19 Information not available 04/06/2021 How Much Tobacco Do You Smoke? No Information not available 09/07/2021 Do You Feel Stressed (tense, Restless, Nervous, Or Anxious, Or Unable To Sleep At Night)? [id number] Information not available 10/11/2022 Do You Use Any Illicit Or Recreational Drugs? No [email or web address] Information not available 07/20/2020 Do You Use Sunscreen Routinely? No Information not available 04/06/2021 Has Tobacco Cessation Counseling Been Provided? No Information not available 10/11/2022 How Many Years Have You Smoked Tobacco? 25 Information not available 10/11/2022 Have You Used IV Drugs? No Information not available 04/06/2021 Do You Or Have You Ever Used Any Other Forms Of Tobacco Or Nicotine? No Information not available 10/11/2022 Sex: Unknown Functional Status Question Answer Note LastModified by Organizat ion Details LastModified Time Do you have difficulty walking or climbing stairs? No Information not available 10/11/2022 Are you able to walk? YESWOREST Information not available 04/06/2021 Are you able to care for yourself? Yes Information not available 10/11/2022 Do you have difficulty dressing or bathing? No Information not available 10/11/2022 What is your exercise level? Occasional [email or web address] Information not available 07/20/2020 Mental Status None recorded. Family History Relationship Description Onset Age of this Age Resolved Age Notes LastModified by Organization Details LastModified Time Father No current problems or disability [email or web address] Not available 11/21 15:13:28 Father Hypercholest erolemia [email or web address] Not available 09/23 14:29:45 Father Heart disease [email or web address] Not available 09/23 14:29:45 Father Diabetes mellitus [email or web address] Not available 09/23 14:29:45 Father Blood coagulation disorder [email or web address] Not available 09/23 14:29:45 Mother No current problems or disability Not available 11/21 15:13:28 Mother Hypercholest erolemia [email or web address] Not available 09/23 14:29:44 Mother Blood coagulation disorder 73 [email or web address] Not available 2023 15:13:28 Mother Osteoporosis [email or web address] Not patricia ilable 09/23/2020 14:29:45 Mother Malignant tumor of lung [email or web address] Not available 09/23 14:29:45 Mother Blood coagulation disorder Not available 2020 15:33:31 Medical History Condition Response Anxiety Disorder Y Allergies (Food, seasonal, environmental ) Y History of STI Y Acid Reflux (GERD) Y History of abnormal pap Y Thyroid Problems Y Depression/ depression Y Gynecological History Statement/Question Response Date of Last Mammogram 08/29/2022 Date of LMP 03/31/2018 On BCP's at Conception? N N STIs/STDs Y HPV Vaccine N Colposcopy 07/01/2005 07/11/2020 Current Control Method Hysterectom y Age at First Child 22 Date of Last Colonoscopy 05/01/2020 Sexually Active? Y Menses Monthly N Age of first menstrual cycle 14 Date of Last Pap Smear 01/08/2019 Sexual Problems? N Desired Control Method Hysterectom y LMP Approximate 07/11/2020 Y Obstetrics History GPAL:G 3 P 3 0 0 3 Type Value Full Term 3 Living 3 Total 3 Past Encounters Encounter ID Performer Location Encounter Start Date Encounter Closed Date Diagnosis/Indication Diagnosis SNOMED-CT Code Diagnosis ICD10 Code Diagnosis Note [id number] Medina Larsen [facility] [address] [address] 04/28/2020 12:38:23 04/28/2020 13:34:08 Menopausal syndrome [id number] N95.1 See labs faxed over in chart. We discussed Menopausal Hormone therapy (MHT) for women with intact uterus with the goals of reliving vaso-motor sx's using estrogen/p rogestin therapy (EPT) using lowest doses for shortest duration in women 40-59yo. Contraindi cations include: Hx of DVT or thrombolic events, High cholestero l, Hx of breast cancer, known CHD, active liver disease, unexplaine d vag bleeding, high risk endometria l cancer, TIA. Side effects can include but are not limited to: Irregular vag bleeding,, breast tenderness , nausea, weight changes, libido changes, nausea. Adverse Rxn: Elevated BP migraine w/ visual changes, breast cancer dx, AR/stroke, DVT/PE, Endometria l cancer. Please contact office with any new or worsening side effects or adverse reactions. Or if a medical emergency please go to nearest ED/[facility] for further evaluation . Patient has Hx of Hysterecto my with RSO & LT for non-cancer indication s. Hx of thyroid issues. Recent medication dosage change by PCP. Understand ing verbalized & agreeable to trial of Bijuva. We also discussed that if this is not covered to contact office & we can send out Estradiol 1mg tablets & Prometrium 100mg tablets daily generics. Samples given x 4wks Time spent in visit is a total of 26 mins with at least 50% of visit consisting of counseling and review of plan of care. [id number] Sandie Panchal CNM [place] [address],[place] [address] 07/20/2020 15:13:15 07/20/2020 16:14:06 Vaginitis [id number] N76.0 [id number] Medina Larsen , [facility] [address],[place] [address] 07/28/2020 13:03:24 07/28/2020 14:05:19 Gynecologic examination [id number] Z01.419 Suggested Calcium with Vitamin D 1200-1500m g daily. Patient advised to get an annual flu shot in the fall and she could obtain at [facility] or [facility] clinic. Also to obtain TDap vaccinatio n if you have not had one in the last 10 years. Recommend yearly mammograms . Encouraged monthly self breast exams. Encourage safe sexual practices, to use condoms and limit partners if not already in a monogamous relationsh ip. Engage in daily exercise of low impact aerobic exercise 45-60 minutes 4-5 times weekly. Avoid tobacco and illicit drugs as well as using moderation with alcohol intake less than 1-2 8 oz beverages daily. This lifestyle behavior pattern will lead to less health conditions and longer life span. If BMI greater than 25 weight watchers or dietary consult advised. All questions have been answered. Patient appears to understand informatio n, but if you have any questions please call or respond to this email. Pap/hpv d/c with normal hx & hx of hyst for non-cancer indication s Monogamous x >20yrs Mammo done by PCP Additional precaution mini measures were taken to minimize potential exposure to the Covid-19 virus during this patient s visit, including available hand rod mill tender upon arrive, temperatur e check and being asked a series of screening questions. All staff wore face coverings during this encounter, as well as provided additional cleaning and sanitizing of all surfaces, including countertop s, pens, chairs, door handles, light switches, etc, prior to and following the patient s visit. Menopausal flushing 1983 50230 N95.1 If bijuva is not covered at adequate cost by insurance it is okay to send Estradiol 1mg & prometrium 100mg daily generics. Vaginitis [id number] N76.0 Doing well from last vaginitis visit but if needs 1 more RF of levofloxac in this is okay; but if no improvemen t and recurrs needs to come for appt. [id number] Sandie Panchal [facility] [address],[place] [address] 09/23/2020 13:48:54 09/23/2020 14:44:28 Mycoplasma species or Ureaplasma urealyticum [id number] R89.5 culture sent Atrophic vaginitis 37846 000 N95.2 13753 Medina Larsen [facility] [address],[place] [address] 04/06/2021 15:16:00 04/06/2021 15:58:09 Vaginitis [id number] N76.0 Will send swabs.HVS sent-not likely but want to ensure this irritated area is not related to HSV as it is monthly around menses.Con jessica PremarinWi ll await results If results are wnl, consider biospy of this area when it is flared up. Time spent in visit is a total of 15 mins with at least 50% of visit consisting of counseling and review of plan of care.Addit ional precaution mini measures were taken to minimize potential exposure to the Covid-19 virus during this patient s visit, including available hand rod mill tender upon arrive, temperatur e check and being asked a series of screening questions. All staff wore face coverings during this encounter, as well as provided additional cleaning and sanitizing of all surfaces, including countertop s, pens, chairs, door handles, light switches, etc, prior to and following the patient s visit. Sexually t ransmitted infectious disease 6555973 A64 Will update a complete std screen but mainly interested in if any positive HSV results. [id number] Medina Larsen [facility] [address],[place] [address] 09/07/2021 12:44:38 09/07/2021 13:41:38 Gynecologic examination [id number] Z01.419 Suggested Calcium with Vitamin D 1200-1500m g daily. Patient advised to get an annual flu shot in the fall and she could obtain at [facility] or [facility] clinic. Also to obtain TDap vaccinatio n if you have not had one in the last 10 years. Recommend yearly mammograms . Encouraged monthly self breast exams. Encourage safe sexual practices, to use condoms and limit partners if not already in a monogamous relationsh ip. Engage in daily exercise of low impact aerobic exercise 45-60 minutes 4-5 times weekly. Avoid tobacco and illicit drugs as well as using moderation with alcohol intake less than 1-2 8 oz beverages daily. This lifestyle behavior pattern will lead to less health conditions and longer life span. If BMI greater than 25 weight watchers or dietary consult advised. All questions have been answered. Patient appears to understand informatio n, but if you have any questions please call or respond to this email. 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 All staff wore face coverings during this encounter, as well as provided additional cleaning and sanitizing of all surfaces, including countertop s, pens, chairs, door handles, light switches, etc, prior to and following the patient s visit. Screening for malignant neoplasm of breast [id number] Z12.39 N64.4 Skin irritation [id number] 7 L30.9 [id number] Medina Larsen , [facility] [address],[place] [address] 10/11/2022 11:49:49 10/11/2022 14:23:14 Gynecologic examination 76267722 Z01.419 Suggested Calcium with Vitamin D 1200-1500m g daily. Patient advised to get an annual flu shot in the fall and she could obtain at [facility] or [facility] care clinic. Also to obtain TDap vaccinatio n if you have not had one in the last 10 years. Recommend yearly mammograms . Encouraged monthly self breast exams. Encourage safe sexual practices, to use condoms and limit partners if not already in a monogamous relationsh ip. Engage in daily exercise of low impact aerobic exercise 45-60 minutes 4-5 times weekly. Avoid tobacco and illicit drugs as well as using moderation with alcohol intake less than 1-2 8 oz beverages daily. This lifestyle behavior pattern will lead to less health conditions and longer life span. If BMI greater than 25 weight watchers or dietary consult advised. All questions have been answered. Patient appears to understand informatio n, but if you have any questions please call or respond to this email. Pap/hpv STD Screen Genetic Screen Colon Screen Dexa Screen Routine LabsMammo ordered Hormone re placement therapy [id number] Z79.890 Counseled on the following: Females >10yrs past menopause (& age 60yo+) are generally not good candidates for starting (1st use) systemic HT. Decisions to continue systemic HT > a decade past menopause (or past age 60yo) requires balancing R/B's; & individual ized needs. Non-hormon al options may be more appropriat e for females >10yrs past menopause. Her new mail order pharmacy will only allow Medroxy-P 10mg vs 5mg.We sent Rx in for 10mg but she will cut these in half taking 5mg daily as she has been doing which she feels along with Estradiol 2mg has kept her feeling well. [id number] Medina Larsen , [facility] [address],[place] [address] 10/31/2023 13:42:35 10/31/2023 14:28:41 Gynecologic examination [id number] Z01.419 Suggested Calcium with Vitamin D 1200-1500m g daily. Patient advised to get an annual flu shot in the fall and she could obtain at [facility] or [facility] take care clinic. Also to obtain TDap vaccinatio n if you have not had one in the last 10 years. Recommend yearly mammograms . Encouraged monthly self breast exams. Encourage safe sexual practices, to use condoms and limit partners if not already in a monogamous relationsh ip. Engage in daily exercise of low impact aerobic exercise 45-60 minutes 4-5 times weekly. Avoid tobacco and illicit drugs as well as using moderation with alcohol intake less than 1-2 8 oz beverages daily. This lifestyle behavior pattern will lead to less health conditions and longer life span. If BMI greater than 25 weight watchers or dietary consult advised. All questions have been answered. Patient appears to understand informatio n, but if you have any questions please call or respond to this email. Pap/hpv USPSTF recommends against screening for cervical cancer in women older than 65yo, those who've had a hysterecto my for non-cancer indication s, & who have had adequate prior screening & are not otherwise at high risk for cervical cancer. STD Screen declinedGe netic Screen discussedC olon Screen PCPDexa Screen naRoutine Labs PCPMammo ordered Menopausal symptom 92829 002 N95.1 Happy on HRTD/C progestero ne since she had a hysterecto my and now has no uterus.Sta y on :Estradiol 2mg.RF sent to requested pharmacy Body mass index 25-29 - overweight [id number] Z68.28 Let us knowTried other Contrave/p hentermine without success.Noland s tried Wegovy samples and tolerated well.Would like to continue this therapy if possible.R x sent Counseled on medication R/B's, Most common side effects, & use. All questions were answered to patient satisfacti on. Neg personal or family hx of MTC.Neg personal or family hx of thyroid cancer Hx hypothyroi dismHx of chronic obesityFam papito Hx of hyperlipid emia, DM, Heart disease, obesity. If insurance doesn't cover please call and see what formulary covers for weight loss management . Has made dietary low carb changes and increased exercise habits with weight bearing activities .If able to get medication we can finish setting our weight loss and nutritiona l goals.A 4wk f/u medication check will be required before RF's are given.Need updated labs from PCP Screening mammography 24 173677 Z12.31 Skin irritation 43902968 7 L30.9 Uses under breasts prn [id number] Scar Ye MD [place] [address],[place] [address] 11/22/2023 15:13:11 11/22/2023 16:34:19 Obesity [id number] E66.9 This patient is a 53-year-ol d female who presents for weight management . We took a very thorough history. We talked about some of her goals. Talked about some of her challenges . We talked about some of her previous efforts in weight loss and her activity level. We talked about limitation s for activity. Talked about energy consumptio n energy expenditur e. She was given recommenda tions and some of these areas. We talked about the importance of resistance training and cardiovasc ular exercise. We talked about her medical history in its relationsh ip to excess body weight. We talked about treatment options. Talked about calorie counting. Talked about accountabi lity. We reviewed medication s in detail. We spent 40 minutes face-to-fa ce. More than 50% was counseling . We agreed to treat with phentermin e and topiramate . She will follow up in 3 months. Health Concerns Section Related Observation LastModified by Organization Detai ls LastModified Time None Recorded Concern Status LastModified by Organization Details LastModified Time None Recorded Advance Directives Directive N: Payers Encounter Date Sequence Insurance Name Policy Number Policy Nuñez Covered Member ID Nuñez Member ID Guarantor Name 04/06/2021 1 [facility] ON OR AFTER 12/29/20 (MEDICAID REPLACEMENT - HMO) Ashley Palmer [id number] Ashley Palmer 09/07/2021 1 [facility] ON OR AFTER 12/29/20 (MEDICAID REPLACEMENT - HMO) Ashley Palmer [id number] Ashley Palmer 10/11/2022 1 [facility] ON OR AFTER 12/29/20 (MEDICAID REPLACEMENT - HMO) Ashley Palmer [id number] Ashley Palmer 10/31/2023 1 [facility] [id number] Ashley Palmer [id number] Ashley Palmer 11/22/2023 1 [facility] [id number] Ashley Estela [id number] Ashley Palmer Notes Date Note Type Note Provider Name and Address Organization Details Recorded Time 1 text/html Vaginal/Vulvar ProblemReported bypatient.Notes:Vaginal irritation.Mainly externalBilaterally lower labia majora regionItchingOccurs monthlyHx of hysterectomyIs on HRT & Premarin now; but states this was occurring prior to these therapies. Neg d/c, odorNot SA x 2mosNeg GI issuesNeg recent illnessNeg Urinary issues Medina Larsen, [facility]- [address], [place], [address], [facility] 04/06/2021 15:56:56 2 text/html Annual [employer] Post-MenopausalReported bypatient.Menopausal Symptoms:no menopausal symptoms; normal vaginal lubrication Vaginal Bleeding:history of menopause having occurred; no history of post menopausal bleeding Urinary Symptoms:no hematuria; no incontinence; no nocturia; no urinary frequency Vulva:no genital lesion; no vulvar atrophy Vagina:normal vaginal discharge; no vaginal atrophy Breast:no breast lump; no nipple discharge;breast pain(Right side. ??If there is a nodule there or not?) Sexual Complaints:no sexual complaints Psychological Symptoms:no depression; no anxiety Preventive Measures:encourage regular mammograms starting age 40; encourage self breast examination; encourage regular exercise; encourage no tobacco use; needs to schedule mammogram; history of [facility] colon[facility] [address], [place], [address], [facility] 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 [employer] Cook Post-MenopausalReported bypatient.Menopausal Symptoms:no menopausal symptoms; normal vaginal lubrication Vaginal Bleeding:history of menopause having occurred; no history of post menopausal bleeding Urinary Symptoms:no hematuria; no incontinence; no nocturia; no urinary frequency Vulva:no genital lesion; no vulvar atrophy Vagina:normal vaginal discharge; no vaginal atrophy Breast:no breast lump; no nipple discharge; no breast pain Sexual Complaints:no sexual complaints Psychological Symptoms:no depression; no anxiety Preventive Measures:encourage regular mammograms starting age 40; encourage self breast examination; encourage regular exercise; encourage no tobacco use; needs to schedule mammogram; history of recent colonoscopy YOJANA Braga [address], [place], [address], [facility] 10/11/2022 13:53:08 4 text/html Annual [employer] Cook Post-MenopausalReported bypatient.Menopausal Symptoms:no menopausal symptoms; normal vaginal lubrication Vaginal Bleeding:history of menopause having occurred; no history of post menopausal bleeding Urinary Symptoms:no hematuria; no incontinence; no nocturia; no urinary frequency Vulva:no genital lesion; no vulvar atrophy Vagina:normal vaginal discharge; no vaginal atrophy Breast:no breast lump; no nipple discharge; no breast pain Sexual Complaints:no sexual complaints Psychological Symptoms:no depression; no anxiety Preventive Measures:encourage regular mammograms starting age 40; encourage self breast examination; encourage regular exercise; encourage no tobacco use; needs to schedule mammogram; history of recent colonoscopy Medina Larsen [facility]- [address], [place], [address], [facility] 10/31/2023 14:26:53 4 text/html This patient is a 53-year-old female who presents for weight management. We took a very thorough history. We talked about some of her goals. Talked about some of her challenges. We talked about some of her previous efforts in weight loss and her activity level. We talked about limitations for activity. Talked about energy consumption energy expenditure. She was given recommendations and some of these areas. We talked about the importance of resistance training and cardiovascular exercise. We talked about her medical history in its relationship to excess body weight. We talked about treatment options. Talked about calorie counting. Talked about accountability. We reviewed medications in detail. We spent 40 minutes [id number]. More than 50% was counseling. We agreed to treat with phentermine and topiramate. She will follow up in 3 months. Scar Ye MD [address], [place], [address], [facility] 11/22/2023 16:34:04 OBGyn Episode Ob Episode Information Episode Created Date Number of Fetuses Patient Bloodtype Patient rh Status Prepregnancy Weight lbs Domestic Partner Domestic Partner Phone Father Name Telephonic Case Manager Status 04/28/20 20 1 CLOSED Fetus Data First Name Last Name Admitted to NICU Weight (g) Sex Living Outcome Pediatric Complications Fetus ID Race Codes Race Delivery Type 3486.76 1704 F Full Term 5730 Vaginal Delivery Dutch Calculation Initial Dutch Date Initial Exam Date Initial Exam Provider Initial Ultrasound Date Last Menstrual Period Date Ultra Sound Weeks Gestation 0 Eighteen To Twenty Week Dutch Update Ultra Sound Date Fundal Height At Umbil Quickening Date Ultra Sound Latest Weeks Gestation Final Dutch Confirmed By Final Dutch Confirmed Date Final Dutch Date Ultra Sound Latest Days Gestation 0 0 Menstrual History Last Menstrual Date Menses Monthly On Bcp Conception Prior Menses Frequency Hcg Plus Date Menarche Onset Age Delivery Information Delivery Date Delivery Type Labor Anesthesia Weeks Gestation Incision Type Labor Labor Length Hrs Delivered By Post Complications Tubal Sterilization Discharge Date Comments 5 40 Discharge Information Feeding Method Contraceptive Method Maternal HG B and HCT Levels Ob Episode Information Episode Created Date Number of Fetuses Patient Bloodtype Patient rh Status Prepregnancy Weight lbs Domestic Partner Domestic Partner Phone Father Name Telephonic Case Manager Status 04/28/20 20 1 CLOSED Fetus Data First Name Last Name Admitted to NICU Weight (g) Sex Living Outcome Pediatric Complications Fetus ID Race Codes Race Delivery Type 3118.44 5 M Full Term 5732 Vaginal Delivery Dutch Calculation Initial Dutch Date Initial Exam Date Initial Exam Provider Initial Ultrasound Date Last Menstrual Period Date Ultra Sound Weeks Gestation 0 Eighteen To Twenty Week Dutch Update Ultra Sound Date Fundal Height At Umbil Quickening Date Ultra Sound Latest Weeks Gestation Final Dutch Confirmed By Final Dutch Confirmed Date Final Dutch Date Ultra Sound Latest Days Gestation 0 0 Menstrual History Last Menstrual Date Menses Monthly On Bcp Conception Prior Menses Frequency Hcg Plus Date Menarche Onset Age Delivery Information Delivery Date Delivery Type Labor Anesthesia Weeks Gestation Incision Type Labor Labor Length Hrs Delivered By Post Complications Tubal Sterilization Discharge Date Comments 5 40 Discharge Information Feeding Method Contraceptive Method Maternal HG B and HCT Levels Ob Episode Information Episode Created Date Number of Fetuses Patient Bloodtype Patient rh Status Prepregnancy Weight lbs Domestic Partner Domestic Partner Phone Father Name Telephonic Case Manager Status 04/28/20 20 1 CLOSED Fetus Data First Name Last Name Admitted to NICU Weight (g) Sex Living Outcome Pediatric Complications Fetus ID Race Codes Race Delivery Type 3401.94 M Full Term 5731 Vaginal Delivery Dutch Calculation Initial Dutch Date Initial Exam Date Initial Exam Provider Initial Ultrasound Date Last Menstrual Period Date Ultra Sound Weeks Gestation 0 Eighteen To Twenty Week Dutch Update Ultra Sound Date Fundal Height At Umbil Quickening Date Ultra Sound Latest Weeks Gestation Final Dutch Confirmed By Final Dutch Confirmed Date Final Dutch Date Ultra Sound Latest Days Gestation 0 0 Menstrual History Last Menstrual Date Menses Monthly On Bcp Conception Prior Menses Frequency Hcg Plus Date Menarche Onset Age Delivery Information Delivery Date Delivery Type Labor Anesthesia Weeks Gestation Incision Type Labor Labor Length Hrs Delivered By Post Complications Tubal Sterilization Discharge Date Comments 2 40 Discharge Information Feeding Method Contraceptive Method Maternal HG B and HCT Levels
--- OUTSIDE RECORDS SUMMARY | 2024-08-26 07:22 | XMS_ITS ---
Author Organization [facility] [employer] Address [facility] [facility] [address] [facility] [address] [place] [address] Care Team Providers Care Capsule Inspector Name Role Phone Sonja Leavitt Unavailable [phone] REASON FOR VISIT Medication increase RX Medications Medication SIG (Take, Route, Frequency, Duration) Notes Start Date End Date Status Atomoxetine HCl 80 MG 1 capsule in the m orning Orally Once a day for 30 days d/c 40mg 12/23/2023 03/21/2024 Active Social History Sex Assigned At : Social History Observation Description Sex Assigned At Female Encounters Encounter Location Date Provider Diagnosis [facility] [email or web address] [place] [id number] [facility] [address] [address] 01/20/2024 Sonja Dagmar ADHD (attention deficit hyperactivity disorder), combined type F90.2 Assessments Encounter Date Diagnosis (ICD Code) Assessment Notes Treatment Notes Treatment Clinical Notes Section Notes 01/20/2024 ADHD (attention deficit hyperactivity disorder), combined type (ICD-10 - F90.2) Plan Of Treatment Medication Medication Name Sig Start Date Stop Date Notes Atomoxetine HCl 80 MG 1 capsule in the m orning Orally Once a day for 30 days 12/23/2023 03/21/2024 d/c 40mg Progress Notes * YOEL BRUMFIELD LDOB: [birth year] (53 yo F)Acc No.[id number]:01/20/2024 Patient: YOEL ENG Marcy :1970 A ge:53 Y S ex:Female Address:[address] [place], [address] * Refills Refill Atomoxetine HCl Capsule, 80 MG, Orally, 30, 1 capsule in the morning, Once a day, 30 days, Refills=1 * true * Date: Generated for Erick casiano/José Manuel/Elvaitting on: 0 08/26/2024 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
--- OUTSIDE RECORDS SUMMARY | 2024-08-26 07:22 | XMS_ITS ---
Author Organization [facility] Address [address] [facility] [place] [address] [place] [address] Care Team Providers Care Nurse First Aid Name Role Phone Zuleyma Garcia Unavailable [phone] REASON FOR VISIT anxiety, depression, panic attacks, ADHD Medications Medication SIG (Take, Route, Frequency, Duration) Notes Start Date End Date Status Levothyroxine Sodium 50 MCG TAKE 1 TABLET BY MOUTH DAILY Oral for 90 Days Active Omeprazole 20 MG TAKE 1 CAPSULE BY MOUTH TWICE DAILY Oral for 90 Days Active buPROPion HCl ER (SR) 150 MG TAKE 1 TABLET BY MOUTH TWICE DAILY Oral for 30 Days Active hydrOXYzine HCl 25 MG TAKE 1 TABLET BY MOUTH TWICE DAILY NEEDED FOR ITCHING Oral for 15 Days Active Leflunomide 10 MG TAKE 1 TABLET BY MOUTH DAILY Oral for 30 Days Active Atomoxetine HCl 80 MG 1 capsule in the morning Orally Once a day for 30 days d/c 40mg 12/23/2023 03/21/2024 Active DULoxetine HCl 30 MG 1 capsule Orally Once a day for 90 days total dose 90 mg 12/23/2023 Active Phentermine HCl 30 MG TAKE 1 CAPSULE BY MOUTH EVERY DAY Oral for 30 Days Active Atomoxetine HCl 25 MG 1 capsule in the morning x 1 wk, then increase to 40mg cap Orally once a day for 7 days 12/23/2023 Active Escitalopram Oxalate 10 MG 1 tablet at bedtime Oral Once a day for 90 days Active Hydroxychloroquine Sulfate 200 MG TAKE 2 TABLETS BY MOUTH TWICE DAILY Oral for 30 Days Active DULoxetine HCl 60 MG 1 capsule Oral Once a day for 90 days total dose 90 mg Active Lissette-D Allergy & Congestion 60-120 MG TAKE 1 TABLET BY MOUTH EVERY 12 HOURS NEEDED FOR CONGESTION Oral for 10 Days Active Social History Sex Assigned At : Social History Observation Description Sex Assigned At Female Encounters Encounter [facility] Date [facility] [address] [facility] [place] [address] [place] [address] 02/04/2024 Zuleyma Garcia Major depressive disorder, recurrent, mild F33.0 ; Generalized anxiety disorder F41.1 ; ADHD (attention deficit hyperactivity disorder), combined type F90.2 and Panic attacks F41.0 Assessments Encounter Date Diagnosis (ICD Code) Assessment Notes Treatment Notes Treatment Clinical Notes Section Notes 02/04/2024 Major depressive disorder, recurrent, mild (ICD-10 - F33.0) 02/04/2024 Generalized anxiety disorder (ICD-10 - F41.1) 02/04/2024 ADHD (attention deficit hyperactivity disorder), combined type (ICD-10 - F90.2) 02/04/2024 Panic attacks (ICD-10 - F41.0) 02/04/2024 Other Client reports she needs to work on her confidence. Therapist actively listened to client and asked questions for clarification. Therapist assisted client by helping her to explore strategies to improve her self worth (self affirmations, list of simple accomplishemen ts, etc.). Plan Of Treatment Next Appt Details Follow Up: 3 Months, Reason: Progress Notes * YOEL BRUMFIELD LDOB: [birth year] (53 yo F)Acc No.[id number]:02/04/2024 Patient: YOEL ENG Provider: Sharon GARCIA LCSW :1970 A ge:53 Y S ex:Female Date:02/04/2024 Address:[address] [place], [place] [id number] Data: * Time Tracker: * Date Start Time End Time Duration User Type Captured By Mode Notes 02/04/2024 12:59 PM 01:55 PM 00:56:00 Therapist Zuleyma Garcia anual * Chief Complaints: * 1 . Anxiety. 2. Depression. 3. Panic attacks. 4. ADHD. * HPI: H istory of Presenting Problem: Client is here today for psychotherapy to treat anxiety, depression, panic attacks, and ADHD issues. Based on our session, I think the patient is making moderate progress. At this time I do not recommend changes to the treatment plan. I do not think the patient poses significant risk of harm to self or others at this time. Discussed continued treatment with patien. * Behavioral History: P ast psychiatric Hospitalization:No. H istory of suicidal attempt?:No. * Medications: T aking Phentermine HCl 30 MG Capsule TAKE 1 CAPSULE BY MOUTH EVERY DAY Oral , Taking hydrOXYzine HCl 25 MG Tablet TAKE 1 TABLET BY MOUTH TWICE DAILY NEEDED FOR ITCHING Oral , Taking Leflunomide 10 MG Tablet TAKE 1 TABLET BY MOUTH DAILY Oral , Taking Omeprazole 20 MG Capsule [...] bedtime Oral Once a day , Taking DULoxetine HCl 30 MG Capsule Delayed Release Particles 1 capsule Orally Once a day , Notes to Pharmacist: total dose 90 mg, Taking Atomoxetine HCl 25 MG Capsule 1 capsule in the morning x 1 wk, then increase to 40mg cap Orally once a day , Notes: pt request resend to [facility] instead, Taking Atomoxetine HCl 80 MG Capsule 1 capsule in the morning Orally Once a day , stop date 03/21/2024, Notes to Pharmacist: d/c 40mg * Examination: P sychiatry: Isaias gay is well groomed and fully oriented. Assessment: * Assessment: 1. M ajor depressive disorder, recurrent, mild - F33.0 (Primary) 2 . G eneralized anxiety disorder - F41.1 3 . A DHD (attention deficit hyperactivity disorder), combined type - F90.2 4 . P anic attacks - F41.0 Plan: * Treatment: * Procedure Codes: 9 0837 PSYCHOTHERAPY W/PATIENT 60 MINUTES * Follow Up: 3 Months * Billing Information: * Visit Code: * Procedure Codes: 76847 PSYCHOTHERAPY W/PATIENT 60 MINUTES. * Sign off status: Completed Signatures: No Ad Hoc Signature Added true * Provider: Sharon GARCIA LCSW Date: 0 02/04/2024 Generated for Amritai stephenie/José Manuel/eTransmitting on: 0 08/26/2024 07:22 AM [employer] History and Physical Notes * HPI (History of Present Illness) Category Sub-Category Detail Notes Category Not es History of Presenting Problem Client is here today for psychotherapy to treat anxiety, depression, panic attacks, and ADHD issues. Based on our session, I think the patient is making moderate progress. At this time I do not recommend changes to the treatment plan. I do not think the patient poses significant risk of harm to self or others at this time. Discussed continued treatment with patien Examination Category Sub-Category Detail Notes Category Not es Psychiatry Client is well groomed and fully oriented
--- OUTSIDE RECORDS SUMMARY | 2024-08-26 07:22 | XMS_ITS | Patient Health Record ---
Author Organization [facility] Address [address] [place] [address] Care Team Providers Care Candlemaker Name Role Phone Zuleyma Garcia Unavailable [phone] Russel Kong Unavailable [phone] JanaSonja brewster Unavailable [phone] Migration, Provider Unavailable Unavailable Allergies No Known Allergies Results Component Value Reference Range Notes UDT Reviewed date:12/24/2023 10:31:43 PM Interpretation: Performing Lab: Notes/Report: THC neg 0 - 50 ng/ml Cocaine neg Amphetamine pos Buprenorphine (BUP) neg Secobarbital (Bar) neg Oxazepam (BZO) neg 2-jteefprhvw-4,1-pkeupnct-9,3-diphenylpyrrolidine (RICHMOND P) neg Methamphetamine (MET) neg Methylenedioxymethamphetamine (MDMA) neg Morphine (MOP 300/QNN9578) neg Methadone (MTD) neg Phencyclidine (PCP) neg Propoxyphene (PPX) neg Nortriptyline (TCA) neg Reason For Referral No Information Medications Medication SIG (Take, Route, Frequency, Duration) Notes Start Date End Date Status Lissette-D Allergy & Congestion 60-120 MG TAKE 1 TABLET BY MOUTH EVERY 12 HOURS NEEDED FOR CONGESTION Oral for 10 Days Active Hydroxychloroquine Sulfate 200 MG TAKE 2 TABLETS BY MOUTH TWICE DAILY Oral for 30 Days Active Levothyroxine Sodium 50 MCG TAKE 1 TABLE T BY MOUTH DAILY Oral for 90 Days Active Omeprazole 20 MG TAKE 1 CAPSULE BY MOUTH TWICE DAILY Oral for 90 Days Active hydrOXYzine HCl 25 MG TAKE 1 TABLET BY MOUTH TWICE DAILY NEEDED FOR ITCHING Oral for 15 Days Active Escitalopram Oxalate 10 MG 1 tablet at bedtime Oral Once a day for 90 days Active Phentermine HCl 30 MG TAKE 1 CAPSULE BY MOUTH EVERY DAY Oral for 30 Days Active DULoxetine HCl 60 MG 1 capsule Oral Once a day for 90 days d/c 30mg caps Active Social History Tobacco Use: Social History [...] has it been since you last smoked? Jerricaa ter than 10 years Section Notes: Social [...] currently employed?: Yes Who is your employer?: [employer] Marriage and Sexuality What is your relationship status?: Single Are you sexually active?: No Do you use protection during sex?: No How many children do you have?: 3 Home and Environment Are there any guns present in your home?: No Advance Directive Do you have an advance directive?: No Do you have a medical power of surgeon's assistant?: No Social History Substance Use Do you or [...] currently employed?: Yes Who is your employer?: [employer] Marriage and Sexuality What is your relationship status?: Single Are you sexually active?: No Do you use protection during sex?: No How many children do you have?: 3 Home and Environment Are there any guns present in your home?: No Advance Directive Do you have an advance directive?: No Do you have a medical power of surgeon's assistant?: No Problems Problem Type SNOMED Code ICD Code Onset Dates Problem Status W/U Status Risk Notes Problem [id number] Major depressive disorder, recurrent, mild (F33.0) 11/14/19 Active confirmed Problem [id number] Generalized anxiety disorder (F41.1) 11/14/19 Active confirmed Problem Attention deficit hyperactivity disorder (179669448) ADHD (attention deficit hyperactivity disorder), combined type (F90.2) Active confirmed Problem Panic disorder (283689636) Panic attacks (F41.0) Active confirmed Vital Signs Heart Rate 71 /min 02/04/2024 Height-cm 165.10 cm 02/04/2024 Blood pressure diastolic 89 mm Hg 02/04/2024 Weight-kg 75.75 kg 02/04/2024 Height 65.00 in 02/04/2024 Blood pressure systolic 127 mm Hg 02/04/2024 Weight 167 lbs 02/04/2024 BMI 27.79 kg/m2 02/04/2024 Encounters Encounter Location Date Provider Diagnosis [facility] [address] [facility] [address] [facility] [address] [place] [address] 09/17/2023 Sonja Leavitt Major depressive disorder, recurrent severe without psychotic features F33.2 ; Generalized anxiety disorder F41.1 and Panic disorder [episodic paroxysmal anxiety] without agoraphobia F41.0 [facility] [address] [place] [address] 09/18/2023 Provider Migration Major depressive disorder, recurrent severe without psychotic features F33.2 [facility] [address] [place] [address] 10/02/2023 Provider Migration Major depressive disorder, recurrent severe without psychotic features F33.2 [facility] [address] [facility] [address] [facility] [address] [place] [address] 11/14/2023 Sonja Leavitt Generalized anxiety disorder F41.1 ; Panic disorder [episodic paroxysmal anxiety] without agoraphobia F41.0 ; Major depressive disorder, recurrent, mild F33.0 and Attention-deficit hyperactivity disorder, combined type F90.2 [facility] [address] [facility] [address] [place] [address] 12/16/2023 Russel Kong ADHD (attention deficit hyperactivity disorder), combined type 314.01 [facility] [address] [facility] [address] [facility] [address] [place] [address] 12/23/2023 Sonja Leavitt ADHD (attention deficit hyperactivity disorder), combined type F90.2 ; Major depressive disorder, recurrent, mild F33.0 ; Generalized anxiety disorder F41.1 and Panic attacks F41.0 [place] [address] [facility] [address] [facility] [address] [place] [address] 12/23/2023 Zuleyma Garcia Major depressive disorder, recurrent, mild F33.0 and Generalized anxiety disorder F41.1 [facility] [address] [facility] [address] [facility] [address] [place] [address] 02/04/2024 Zuleyma Garcia Major depressive disorder, recurrent, mild F33.0 ; Generalized anxiety disorder F41.1 ; ADHD (attention deficit hyperactivity disorder), combined type F90.2 and Panic attacks F41.0 [place] [address] [facility] [address] [facility] [address] [place] [address] 02/04/2024 Sonja Leavitt ADHD (attention deficit hyperactivity disorder), combined type F90.2 ; Major depressive disorder, recurrent, mild F33.0 ; Generalized anxiety disorder F41.1 and Panic attacks F41.0 [place] [address] [facility] [address] [facility] [address] [place] [address] 09/12/2023 Provider Migration [facility], [facility] [address] [facility] [address] [address] 09/16/2023 Provider Migration [facility], [facility] [address] [facility] [address] [place] [address] 09/18/2023 [facility], [facility] [address] [place] [address] 10/02/2023 [facility], [facility] [address] [place] [address] 11/16/2023 [facility], [facility] [address] [place] [address] 11/17/2023 [facility], [facility] [address] [place] [address] 12/23/2023 Sonja Leavitt [facility], [facility] [address] [place] [address] 12/23/2023 Sonja Leavitt [facility], [facility] [address] [place] [address] 12/23/2023 Sonja Leavitt ADHD (attention deficit hyperactivity disorder), combined type F90.2 [facility], [facility] [address] [place] [address] 12/24/2023 Sonja Leavitt [facility], [facility] [address] [place] [address] 12/24/2023 Sonja Leavitt [facility], [facility] [address] [place] [address] 12/24/2023 [facility], [facility] [address] [place] [address] 12/28/2023 Sonja Leavitt [facility], [facility] [address] [place] [address] 01/08/2024 Sonja Leavitt [facility], [facility] [address] [place] [address] 01/08/2024 Sonja Leavitt [facility], [facility] [address] [place] [address] 01/20/2024 Sonja Leavitt ADHD (attention deficit hyperactivity disorder), combined type F90.2 Assessments Encounter Date Diagnosis (ICD Code) Assessment Notes Treatment Notes Treatment Clinical Notes Section Notes 12/23/2023 ADHD (attention deficit hyperactivity disorder), combined type (ICD-10 - F90.2) start atomoxetine 25mg qam x 1 wk, then 40mg qam send this to dk, others to [facility], doesn't need wellbutrin She called after hours and requested all scripts be sent to [facility] instead due to cost. Diff: PTSD UDS: +amph (has phentermine) discuss results, unusually severe RICK though OSWALDO did well. says it was a normal day, not a bad day, reports did her best. discuss options, non stimulant- but has ndri and snri (didn't tolerate decrease from pain perspective), stimulant-alton es cardiac hx, but also has phentermine already. could decrease ndri and try atomoxetine, or maybe clonidine. says was only on ndri for smoking not mood shared decision to try decrease NDRI and start atomoxetine. review r/b/se, treatment course referred here for therapy, appt upcoming f/u in month, plan cont [facility] 12/23/2023 ADHD (attention deficit hyperactivity disorder), combined type (ICD-10 - F90.2) 01/20/2024 ADHD (attention deficit hyperactivity disorder), combined type (ICD-10 - F90.2) 02/04/2024 Major depressive disorder, recurrent, mild (ICD-10 - F33.0) 02/04/2024 ADHD (attention deficit hyperactivity disorder), combined type (ICD-10 - F90.2) increase atomoxetine to 80mg qam all scripts sent to [facility] Diff: PTSD tolerating atomoxetine, possibly some improvements. No issue decreasing wellbutrin, she also decreased her duloxetine as didn't feel higher was better. Plan to increase atomoxetine and stop wellbutrin. education on medications and treatment course. cont therapy f/u 2 months, earlier if concerns 09/17/2023 Major depressive disorder, recurrent severe without psychotic features (ICD-10 - F33.2) 09/17/2023 Generalized anxiety disorder (ICD-10 - F41.1) 09/17/2023 Panic disorder [episodic paroxysmal anxiety] without agoraphobia (ICD-10 - F41.0) 09/18/2023 Major depressive disorder, recurrent severe without psychotic features (ICD-10 - F33.2) 10/02/2023 Major depressive disorder, recurrent severe without psychotic features (ICD-10 - F33.2) 11/14/2023 Major depressive disorder, recurrent, mild (ICD-10 - F33.0) 11/14/2023 Generalized anxiety disorder (ICD-10 - F41.1) 11/14/2023 Attention-defici t hyperactivity disorder, combined type (ICD-10 - F90.2) 11/14/2023 Panic disorder [episodic paroxysmal anxiety] without agoraphobia (ICD-10 - F41.0) 12/16/2023 ADHD (attention deficit hyperactivity disorder), combined type (ICD9-CM - 314.01) 12/23/2023 Major depressive disorder, recurrent, mild (ICD-10 - F33.0) Client is a 53 year old, and X 1, female with 3 grown children. Client reports in the and client suspected infidenlity. Two live on their own and are a little more than an hour away. Her youngest is going to school at [employer]. Her youngest was the result of a relationship (after the divorce). 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 Johnathan is the 2nd of 4 kids and grew up in [place]. Client [place] up [place] a farm that the family rented. Client reports it was fun but dad was strict. She states he was not verbally or physically abusive. Mom was more lenient. I felt loved. Client first saw FRANSICO Kilpatrick on 08/22/23. She is currently prescribed Lexapro, Duloxetine, and Wellbutrin. Current PHQ=11 moderate. Client reports depression first started about age 29 or 30, about a year after the divorce. Client reports moderate issues with anhedonia (she has 2 dogs, does pick of from grocery stores), fatigue, and concentration. She reports miild issues with feeling down, sleep (sometimes difficulty falling asleep, difficulty staying asleep waking about 3 times, taking about 15-20 minutes to fall back to sleep, getting about 7-8 hours of sleep per night). overeating, issues with self esteem, and and at times restless and other times, feels slowed down. Current Shabbir=14 moderate. Anxiety began about the same time as the depression. She reports serious issues with irritability. She reports moderate issues with feeling on edge, worry (her job, other employee behaviors) and controlling the worry, difficulty relaxing, restlessness. She reports mild issues with hypervigilance. Client reports feeling traumatized by her daughter losing a baby at 20 weeks along. Client was with her daughter when she lost the baby. She reports she did have nightmares for a while after the loss. She avoids [facility]. Client took the test for ADHD last week and has yet to receive the results of the test. 12/23/2023 Generalized anxiety disorder (ICD-10 - F41.1) Client is a 53 year old, and X 1, female with 3 grown children. Client reports in the and client suspected infidenlity. Two live on their own and are a little more than an hour away. Her youngest is going to school at [employer]. Her youngest was the result of a relationship (after the divorce). 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 Johnathan is the 2nd of 4 kids and grew up in [place]. Client grew up on a farm that the family rented. Client reports it was fun but dad was strict. She states he was not verbally or physically abusive. Mom was more lenient. I felt loved. Client first saw FRANSICO Kilpatrick on 08/22/23. She is currently prescribed Lexapro, Duloxetine, and Wellbutrin. Current PHQ=11 moderate. Client reports depression first started about age 29 or 30, about a year after the divorce. Client reports moderate issues with anhedonia (she has 2 dogs, does pick of from grocery stores), fatigue, and concentration. She reports miild issues with feeling down, sleep (sometimes difficulty falling asleep, difficulty staying asleep waking about 3 times, taking about 15-20 minutes to fall back to sleep, getting about 7-8 hours of sleep per night). overeating, issues with self esteem, and and at times restless and other times, feels slowed down. Current Shabbir=14 moderate. Anxiety began about the same time as the depression. She reports serious issues with irritability. She reports moderate issues with feeling on edge, worry (her job, other employee behaviors) and controlling the worry, difficulty relaxing, restlessness. She reports mild issues with hypervigilance. Client reports feeling traumatized by her daughter losing a baby at 20 weeks along. Client was with her daughter when she lost the baby. She reports she did have nightmares for a while after the loss. She avoids [facility]. Client took the test for ADHD last week and has yet to receive the results of the test. 12/23/2023 Major depressive disorder, recurrent, mild (ICD-10 - F33.0) decrease wellbutrin SR 150mg to once a day-does not need filled cont lexapro 10mg qhs (monitor wt/appetite, mood, anxiety) cont duloxetine DR 90mg daily (did not tolerate decrease from rheumatology perspective) referred here for therapy 12/23/2023 Generalized anxiety disorder (ICD-10 - F41.1) as above 02/04/2024 Generalized anxiety disorder (ICD-10 - F41.1) 02/04/2024 Major depressive disorder, recurrent, mild (ICD-10 - F33.0) stop wellbutrin SR 150mg once a day cont duloxetine DR 60mg daily (she decreased between visits) cont lexapro 10mg qhs (monitor wt/appetite, mood, anxiety) cont therapy 02/04/2024 Generalized anxiety disorder (ICD-10 - F41.1) as above 12/23/2023 Panic attacks (ICD-10 - F41.0) as above had xanax from PCP, reports not taking recently (last filled 08/27/23) 02/04/2024 ADHD (attention deficit hyperactivity disorder), combined type (ICD-10 - F90.2) 02/04/2024 Panic attacks (ICD-10 - F41.0) 02/04/2024 Panic attacks (ICD-10 - F41.0) as above had xanax from PCP, reports not taking recently (last filled 08/27/23) 12/23/2023 Other 02/04/2024 Other Client reports she needs to work on her confidence. Therapist actively listened to client and asked questions for clarification. Therapist assisted client by helping her to explore strategies to improve her self worth (self affirmations, list of simple accomplishemen ts, etc.). Plan Of Treatment No Information Insurance Providers Payer Name Payer Address Payer Phone Subscriber Number Group Number Insured Name Patient Relationship to Insured Coverage Start Date Coverage End Date r [address] [address] [place] [address] [id number] YOEL BRUMFIELD Self - patient is the insured Medical (General) History Medical History History ICD Code Problems: Attention deficit hyperactivit y disorder, combined type Generalized anxiety disorder Mild recurrent major depression Panic attack Severe recurrent major depression withou t psychotic features , Surgical History Surgery Date(Month/Year) Sinus surgery 08/21/2021 Hysterectomy (73410) 04/30/2018 Appendectomy (25414) 05/28/2012 Other R rotator cuff 05/28/2012
--- OUTSIDE RECORDS SUMMARY | 2024-08-26 07:22 | XMS_ITS | Clinical Summary ---
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 Gender Identity Not on file Sexual Orientation Not on file Plan of Treatment Health Maintenance Due Date Last Done Comments Hepatitis C Virus (HCV) Screening 1970 Hepatitis B Immunization (1 of 3 - 19+ 3-dose series) 1989 Pap Smear 1991 Cervical Cancer Screening (CCS) 2000 HPV/Cotest 2000 Colonoscopy 2015 Colorectal Cancer Screening 2015 Cologuard 2020 Immunochemical Fecal Occult Blood 2020 Mammogram 2020 Pneumococcal Immunization (5 0+ years) (1 of 1 - PCV) 2020 Zoster Immunization (1 of 2) 2020 Influenza Immunization (#1) 2024 SARS-COV-2 Immunization ( - season) 2024 Respiratory Syncytial Virus (RSV) Immunization (Adult) (1 - 1-dose 75+ series) 2045 DTaP/Tdap/Td Immunization Discontinued 03/01/2016 TdaP Immunization Completed 03/01/2016 Meningococcal Immunization (ACWY) Aged Out No longer eligible based on patient's age to complete this topic Pneumococcal Immunization Combined Aged Out No longer eligible based on patient's age to complete this topic Rotavirus Immunization Aged Out No lo nger eligible based on patient's age to complete this topic
[2024-08-26 07:57] LABS: Basophils Absolute Auto 0.1 K/mm3 (0.0-0.1); Basophils Percent Auto 0.8 % (0.2-1.2); Eosinophils Absolute Auto 0.1 K/mm3 (0-0.3); Eosinophils Percent Auto 0.9 % (0-4.4); Hematocrit 43.8 % (37.0-47.0); Hemoglobin 14.3 g/dL (12.0-15.0); Immature Granulocyte Absolute 0.11 K/mm3 (0.00-0.031); Immature Granulocyte Percent A 1.4 % (0-0.5); Lymphocytes Absolute Auto 2.21 K/mm3 (0.9-3.2); Lymphocytes Percent Auto 27.8 % (18.3-44.2); Mean Corpuscular HGB Conc 32.6 g/dl (32-36); Mean Corpuscular Hemoglobin 28.8 pg (26-34); Mean Corpuscular Volume 88.1 fl (80-100); Mean Platelet Volume 9.3 fl (7.4-10.4); Monocytes Absolute Auto 0.6 K/mm3 (0.1-0.6); Monocytes Percent Auto 7.9 % (2.6-8.5); Neutrophils Absolute Auto 4.9 K/mm3 (1.3-6.7); Neutrophils Percent Auto 61.2 % (45.5-73.1); Platelet Count Result 243 k/mm3 (150-375); Red Blood Count 4.97 M/mm3 (4.2-5.4)
[2024-08-26 08:09] LABS: Alanine Aminotransferase 23 U/L (6-35); Albumin Level 4.2 g/dL (3.5-5.1); Alkaline Phosphatase 53 U/L (38-126); Anion Gap 7 mmol/L (4-12); Aspartate Amino Transferase 25 U/L (14-36); Bilirubin,Total 0.6 mg/dL (0.2-1.3); Blood Urea Nitrogen 15 mg/dL (7-17); Calcium 9.2 mg/dL (8.4-10.2); Carbon Dioxide 29 mmol/L (22-30); Chloride 105 mmol/L (98-107); Cholesterol 234 mg/dL (0-200); Estimated Glomerular Filt Rate > 60; Glucose 83 mg/dL (65-110); HDL Direct 104 mg/dL; Potassium 3.9 mmol/L (3.4-5.0); Sodium 141 mmol/L (137-145); Triglycerides 46 mg/dL (<150)
[2024-08-26 08:20] LABS: LDL Cholesterol Direct 102 mg/dL
[2024-08-26 09:49] LABS: Vitamin D 25 Hydroxy 45.3 ng/mL
== END 2024-08-26 07:18 | disposition home or self-care (01) ==
LOC: ANHLAB 07:19
PROVIDERS: PCP Nurse Practitioner Family; Visit Provider Nurse Practitioner Family
DX: E78.5 Hyperlipidemia, unspecified (principal); R00.2 Palpitations; E03.9 Hypothyroidism, unspecified; E55.9 Vitamin D deficiency, unspecified
CPT/HCPCS: 36415; 80053; 80061; 82306; 84443; 85025

== ENCOUNTER 2024-09-01 14:33 | Outpatient (CLI) | payer OTHER, SELFPAY | END 2024-09-01 14:34 | disposition home or self-care (01) | LOC: ANHIMG 14:37 | PROVIDERS: Visit Provider Plastic Surgery | DX: M77.11 Lateral epicondylitis, right elbow (principal) | CPT/HCPCS: 73080 ==

== ENCOUNTER 2024-11-26 13:45 | Outpatient (RCR) | payer OTHER, SELFPAY ==
--- NOTE | 2024-09-29 12:03 | OTOPEVAL1 ---
Assessment and note entered by Stepan Schmitt, MICHELLE/Marcy, CHT OT Evaluation Information Assessment Status Evaluation Diagnosis M77.11 Lateral epicondylitis ICD-10 Condition Codes (OT) Pain in right elbow M25.521 Subjective Information Patient reports experiencing right elbow pain for at least 6 months. She is right handed. She reports difficulties with being able to lift cups, opening jars and water bottles, turning a pope, carrying bags, and lifting her grandchildren. 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 She reports intermittent tingling in the hand. She has tried various compression sleeves, tennis elbow strap, etc. as well as Voltaren cream with minimal relief. Reported Pain Level Pain Score 4/10 at rest 10/10 at times with activity Assessment OT Clinical Summary Patient referred to OT with (R) elbow/UE pain with dx of right lateral epicondylitis. She also has signs and symptoms of radial tunnel. Educated on gentle ROM, soft tissue mobilization, nerve flossing, and proper orthotics. Continued follow up indicated for use of modalities, manual therapy , progressive therapeutic exercise, orthotics, and HEP instruction and progression to facilitate reduced pain, improved functional strength, and return to functional lifting and gripping of her right, dominant UE. Plan of Care Interventions Therapeutic Exercise,Manual Therapy,Therapeutic Activities,Hot Pack/Cold Pack,Check Out for Orthotic/Prosthetic,Ultrasound,Paraffin OT Services Indicated Yes Treatment Frequency and 2x/week for 8 visits Duration These treatments will address the objective and functional deficits as defined above. The patient will be advanced safely and appropriately in order for the patient to progress towards his/her prior level of function. Additional exercises will be introduced and as well as a comprehensive home exercise program upon discharge, if needed, ?to ensure carryover of functional gains achieved in the clinic. This treatment plan has been reviewed and agreement upon by the patient.
--- NOTE | 2024-09-29 12:04 | OPREHPOC ---
Outpatient Therapy Plan of Care This is a Multidisciplinary Plan of Care that may contain components documented by all disciplines (PT, OT, and ST.) OT Problem 1 OT Problem #1 Knowledge Deficit OT Goal 1 Goal / Goal Update Patient to be independent with instructed materials. Target Visit 8 OT Problem 2 OT Problem #2 Pain OT Goal 1 Goal / Goal Update Patient to report reduced pain in the right UE, reporting instances of 0/10 pain and no instances of 10/10 pain in the last week with ADLs. Target Visit 8 OT Problem 3 OT Problem #3 Impaired Flexibility OT Goal 1 Goal / Goal Update Patient to be able to complete 10 radial nerve glides with pain 2/10 or less. Target Visit 8 OT Problem 4 OT Problem #4 Impaired Strength OT Goal 1 Goal / Goal Update Patient to be able to progress (R) forearm and wrist strengthening to 2 lb. free weight x10 reps. Target Visit 8 OT Goal 2 Goal / Goal Update Patient to be able to complete (R) senior accounts payable clerk strengthening with yellow putty x5 minutes without pain. Target Visit 8
--- NOTE | 2024-10-22 10:04 | OTOPPROG ---
Assessment and note entered by Stepan Schmitt, MICHELLE/Marcy, CHT OT Progress Update 10/22/24 Assessment Status Progress Diagnosis M77.11 Lateral epicondylitis ICD-10 Condition Codes (OT) Pain in right elbow M25.521 Subjective Information Patient reports progress in the right elbow in the last month. She reports experiencing less pain with UE use. She reports less pain with being able to lift her water bottle, not needing to use both hands. Improvements with being able to lift her grandchildren. Reports reduced tingling, stating that she doesn't feel paresthesia daily like she used to. She has been wearing a wrist immobilizer at night and intermittently with activity throughout the day and she reports it's been helpful. Assessment OT Clinical Summary Patient referred to OT with (R) elbow/UE pain with dx of right lateral epicondylitis. She also has signs and symptoms of radial tunnel. Patient is progressing well with therapy, noted by reduced pain and improved functional use of her right UE. She is now able to tolerate radial nerve glides without pain just tightness. She continues to have a positive tinels at the radial tunnel. She continues to have a positive Cozen's test and Maudsley's test on the right elbow. She is tolerating progressive strengthening as well. Continued skilled OT indicated for use of modalities, manual therapy, progressive therapeutic exercise, orthotics, and HEP instruction and progression to facilitate reduced pain, improved functional strength, and return to functional lifting and gripping of her right, dominant UE. Plan of Care Interventions Therapeutic Exercise,Manual Therapy,Therapeutic Activities,Hot Pack/Cold Pack,Check Out for Orthotic/Prosthetic,Ultrasound,Paraffin OT Services Indicated Yes Treatment Frequency and 2x/week for 8 visits Duration These treatments will address the objective and functional deficits as defined above. The patient will be advanced safely and appropriately in order for the patient to progress towards his/her prior level of function. Additional exercises will be introduced and as well as a comprehensive home exercise program upon discharge, if needed, ?to ensure carryover of functional gains achieved in the clinic. This treatment plan has been reviewed and agreement upon by the patient.
--- NOTE | 2024-10-22 10:04 | OPREHPOC ---
Outpatient Therapy Plan of Care This is a Multidisciplinary Plan of Care that may contain components documented by all disciplines (PT, OT, and ST.) OT Problem 1 OT Problem #1 Knowledge Deficit OT Goal 1 Goal / Goal Update Patient to be independent with instructed materials. ---OT POC UPDATE 10/22/24--- Met Target Visit 16 OT Problem 2 OT Problem #2 Pain OT Goal 1 Goal / Goal Update Patient to report reduced pain in the right UE, reporting instances of 0/10 pain and no instances of 10/10 pain in the last week with ADLs. ---OT POC UPDATE 10/22/24--- Progressing, continue to treat pain Target Visit 16 OT Problem 3 OT Problem #3 Impaired Flexibility OT Goal 1 Goal / Goal Update Patient to be able to complete 10 radial nerve glides with pain 2/10 or less. ---OT POC UPDATE 10/22/24--- Met Target Visit 16 OT Problem 4 OT Problem #4 Impaired Strength OT Goal 1 Goal / Goal Update Patient to be able to progress (R) forearm and wrist strengthening to 2 lb. free weight x10 reps. ---OT POC UPDATE 10/22/24--- Met, upgrade to 3 lbs. Target Visit 8 OT Goal 2 Goal / Goal Update Patient to be able to complete (R) infectious disease physician strengthening with yellow putty x5 minutes without pain. ---OT POC UPDATE 10/22/24--- Progressing, continue goal Target Visit 8
--- NOTE | 2024-11-26 14:35 | OTOPDC ---
Assessment and note entered by Stepan Schmitt, OTR/Marcy, ALBINA OT D/C 11/26/24 Assessment Status Discharge Diagnosis M77.11 Lateral epicondylitis ICD-10 Condition Codes (OT) Pain in right elbow M25.521 Subjective Information Patient reports progress in the right elbow in the last month. She reports experiencing less pain with UE use. She reports no pain with picking up her water bottle and picking up her grandchildren. She reports no longer experiencing paresthesia. She continues to wear a wrist immobilizer at night and intermittently with activity throughout the day and she reports it's been helpful. In the past month she has only had 1 instance of a bad pain flair up in the elbow after she did a lot of cleaning. The pain lasted for 1 day and she returned to feeling pretty good. Overall she is pleased with her progress on the right elbow. Assessment OT Clinical Summary Patient referred to OT with (R) elbow/UE pain with dx of right lateral epicondylitis. Patient has progressed well with therapy, noted by reduced pain and improved functional use of her right UE. She is no longer experiencing pain with light ADLs or work tasks. She has only had 1 instance of increased pain after prolonged cleaning/UE overuse without a proper rest. She progressed to a negative Cozen's test and Maudsley's test on the right elbow. She is tolerating progressive strengthening as well. Plan to D/C OT with therapy goals met and patient independent with all materials. OT Services Indicated No
--- NOTE | 2024-11-26 14:36 | OPREHPOC ---
Outpatient Therapy Plan of Care This is a Multidisciplinary Plan of Care that may contain components documented by all disciplines (PT, OT, and ST.) OT Problem 1 OT Problem #1 Knowledge Deficit OT Goal 1 Goal / Goal Update Patient to be independent with instructed materials. ---OT POC UPDATE 10/22/24--- Met ---OT D/C 11/26/24--- Met Target Visit 16 OT Problem 2 OT Problem #2 Pain OT Goal 1 Goal / Goal Update Patient to report reduced pain in the right UE, reporting instances of 0/10 pain and no instances of 10/10 pain in the last week with ADLs. ---OT POC UPDATE 10/22/24--- Progressing, continue to treat pain ---OT D/C 11/26/24--- Met Target Visit 16 OT Problem 3 OT Problem #3 Impaired Flexibility OT Goal 1 Goal / Goal Update Patient to be able to complete 10 radial nerve glides with pain 2/10 or less. ---OT POC UPDATE 10/22/24--- Met ---OT D/C 11/26/24--- Met Target Visit 16 OT Problem 4 OT Problem #4 Impaired Strength OT Goal 1 Goal / Goal Update Patient to be able to progress (R) forearm and wrist strengthening to 2 lb. free weight x10 reps. ---OT POC UPDATE 10/22/24--- Met, upgrade to 3 lbs. ---OT D/C 11/26/24--- Met Target Visit 8 OT Goal 2 Goal / Goal Update Patient to be able to complete (R) principal hardware architect strengthening with yellow putty x5 minutes without pain. ---OT POC UPDATE 10/22/24--- Progressing, continue goal ---OT D/C 11/26/24--- Met Target Visit 8
== END 2024-11-27 08:55 | disposition home or self-care (01) ==
LOC: ANHGOSHOT 13:45
PROVIDERS: PCP Nurse Practitioner Family; Visit Provider Plastic Surgery
DX: M77.11 Lateral epicondylitis, right elbow (principal)
CPT/HCPCS: 97018; 97035; 97110; 97140; 97166

== ENCOUNTER 2024-12-29 08:14 | Outpatient (CLI) | payer OTHER, SELFPAY ==
--- OUTSIDE RECORDS SUMMARY | 2024-12-29 08:19 | XMS_ITS | Patient Health Record ---
Author Organization [facility] [employer] [facility] Address [address] [place] [address] Care Team Providers Care Occupational Medicine Physician Name Role Phone Zuleyma Garcia Unavailable [phone] Sonja Leavitt Unavailable [phone] Allergies No Known Allergies Reason For Referral No Information Medications Medication SIG (Take, Route, Frequency, Duration) Notes Start Date End Date Status Lissette-D Allergy & Congestion 60-120 MG TAKE 1 TABLET BY MOUTH EVERY 12 HOURS NEEDED FOR CONGESTION Oral; Duration: 10 Days Active Hydroxychloroquine Sulfate 200 MG TAKE 2 TABLETS BY MOUTH TWICE DAILY Oral; Duration: 30 Days Active Levothyroxine Sodium 50 MCG TAKE 1 TABLE T BY MOUTH DAILY Oral; Duration: 90 Days Active Omeprazole 20 MG TAKE 1 CAPSULE BY MOUTH TWICE DAILY Oral; Duration: 90 Days Active hydrOXYzine HCl 25 MG TAKE 1 TABLET BY MOUTH TWICE DAILY NEEDED FOR ITCHING Oral; Duration: 15 Days Active Escitalopram Oxalate 10 MG 1 tablet at bedtime Oral Once a day; Duration: 90 days Active Phentermine HCl 30 MG TAKE 1 CAPSULE BY MOUTH EVERY DAY Oral; Duration: 30 Days Active DULoxetine HCl 60 MG 1 capsule Oral Once a day; Duration: 90 days d/c 30mg caps Active Social [...] currently employed?: Yes Who is your employer?: [employer] Marriage and Sexuality What is your relationship status?: Single Are you sexually active?: No Do you use protection during sex?: No How many children do you have?: 3 Home and Environment Are there any guns present in your home?: No Advance Directive Do you have an advance directive?: No Do you have a medical power of commercial litigation attorney?: No Social History Substance Use Do you [...] currently employed?: Yes Who is your employer?: [employer] Marriage and Sexuality What is your relationship status?: Single Are you sexually active?: No Do you use protection during sex?: No How many children do you have?: 3 Home and Environment Are there any guns present in your home?: No Advance Directive Do you have an advance directive?: No Do you have a medical power of commercial litigation attorney?: No Problems Problem Type SNOMED Code ICD Code Onset Dates Problem Status W/U Status Risk Notes Problem Mild recurrent major depression (74301890) Major depressive disorder, recurrent, mild (F33.0) 11/14/19 Active confirmed Problem Generalized anxiety disorder (29419660) Generalized anxiety disorder (F41.1) 11/14/19 Active confirmed Problem Attention deficit hyperactivity disorder (813555112) ADHD (attention deficit hyperactivity disorder), combined type (F90.2) Active confirmed Problem Panic disorder (344611452) Panic attacks (F41.0) Active confirmed Vital Signs Heart Rate 71 /min 02/04/2024 Height-cm 165.10 cm 02/04/2024 Blood pressure diastolic 89 mm Hg 02/04/2024 Weight-kg 75.75 kg 02/04/2024 Height 65.00 in 02/04/2024 Blood pressure systolic 127 mm Hg 02/04/2024 Weight 167 lbs 02/04/2024 BMI 27.79 kg/m2 02/04/2024 Encounters Encounter Location Date Provider Diagnosis [facility] [place] [id number] [facility] [address] [address] 02/04/2024 Zuleyma Garcia Major depressive disorder, recurrent, mild F33.0 ; Generalized anxiety disorder F41.1 ; ADHD (attention deficit hyperactivity disorder), combined type F90.2 and Panic attacks F41.0 [facility] [address] [address] 02/04/2024 Sonja Leavitt ADHD (attention deficit hyperactivity disorder), combined type F90.2 ; Major depressive disorder, recurrent, mild F33.0 ; Generalized anxiety disorder F41.1 and Panic attacks F41.0 [facility] [place] [address] [facility] [address] [address] 01/08/2024 Sonja Leavitt [facility] [place] [address] [facility] [address] [address] 01/08/2024 Sonja Leavitt [facility] [address] [address] 01/20/2024 Sonja Leavitt ADHD (attention deficit hyperactivity [...] f/u 2 months, earlier if concerns 02/04/2024 Generalized anxiety disorder (ICD-10 - F41.1) 02/04/2024 Major depressive disorder, recurrent, mild (ICD-10 - F33.0) stop wellbutrin SR 150mg once a day cont duloxetine DR 60mg daily (she decreased between visits) cont lexapro 10mg qhs (monitor wt/appetite, mood, anxiety) cont therapy 02/04/2024 Generalized anxiety disorder (ICD-10 - F41.1) as above 02/04/2024 ADHD (attention deficit hyperactivity disorder), combined type (ICD-10 - F90.2) 02/04/2024 Panic attacks (ICD-10 - F41.0) 02/04/2024 Panic attacks (ICD-10 - F41.0) as above had xanax from PCP, reports not taking recently (last filled 08/27/23) 02/04/2024 Other Client reports she needs to work on her confidence. Therapist actively listened to client and asked questions for clarification. Therapist assisted client by helping her to explore strategies to improve her self worth (self affirmations, list of simple accomplishement s, etc.). Plan Of Treatment No Information Insurance Providers Payer Name Payer Address Payer Phone Subscriber Number Group Number Insured Name Patient Relationship to Insured Coverage Start Date Coverage End Date [facility] [address] [address] [place] [phone] [id number] YOEL BRUMFIELD Self - patient is the insured Medical (General) History Medical History History ICD Code Problems: Attention deficit hyperactivit y disorder, combined type Generalized anxiety disorder Mild recurrent major depression Panic attack Severe recurrent major depression withou t psychotic features , Surgical History Surgery Date(Month/Year) Sinus surgery 08/21/2021 Hysterectomy (39866) 04/30/2018 Appendectomy (63578) 05/28/2012 Other R rotator cuff 05/28/2012
--- OUTSIDE RECORDS SUMMARY | 2024-12-29 08:19 | XMS_ITS | Clinical Summary ---
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
[2025-01-26 18:13] VITALS: BMI 29.2
--- NOTE | 2025-01-26 18:13 | P.SLEEP_ITS ---
Sleep Study - Home Unattended Date of Study: 12/29/24 Ordering Provider: JACQUES Gu-Isaias Interpreting Provider: DO Rafael Soto Sleep Study Type: Watch PAT Height: 1.65 m Weight: 79.832 kg Body Mass Index: 29.2 Neck Circumference (inches): 15 Revelo: 9 Reason for Sleep Study Excessive daytime sleepiness Sleep History The patient is a 54-year-old female that had a sleep study [facility] of sleep apnea. She denies snoring loudly. She denies interruptions in breathing while asleep. She denies choking or gasping at night. She denies having trouble breathing on her back. She does have morning headaches. She does have a dry or sore mouth/throat in the morning. She denies nocturnal heartburn. She urinates twice throughout the night. She denies having difficulty falling or staying asleep. She does have difficulty waking up early without an alarm. She denies having difficulty returning to sleep if she wakes up throughout the night. She denies any hypnotic or sedative use. She denies feeling anxious about sleep. She does feel tired or sleepy during the day. She does feel tired in the morning. She does have the urge to fall asleep during the day. She does feel drowsy while driving. She denies sleep paralysis, cataplexy, and hypnagogic/hypnopompic hallucinations. She denies clenching or grinding her teeth. She denies kicking or jerking her legs excessively. She denies having a restless feeling in her legs. She goes to bed at 9 p.m. on workdays and at 10 p.m. on her days off. It takes her 15 minutes to fall asleep. She gets 5 hours and 45 minutes of sleep on workdays and 11 hours and 30 minutes of sleep on her days off. She denies taking any planned naps. She denies dream enactment behavior. She denies sleepwalking. She consumes 1 to 2 cups of a caffeinated beverage per day. She denies tobacco and alcohol use. She denies exercising on a regular basis. [facility] Past Medical History Medical History Cubital bursitis of right elbow Carpal tunnel syndrome of right wrist Seronegative rheumatoid arthritis of multiple sites Bilateral hand pain COVID-19 Bilateral hand pain CMC arthritis Other specified aftercare following surgery Hypothyroidism Hyperlipidemia Surgical History Surgical History S/P correction of deviated nasal septum (~2021) Partial tear of right rotator cuff History of hysterectomy (~03/2018) History of appendectomy History of tubal ligation (~03/2005) Family History Family History Mother Patient's mother is , Onset Age: 73 Lung cancer Hypertension Hyperlipidemia Osteoporosis Sibling Patient's sister is in good health Father Hypertension CHF (congestive heart failure) Diabetes mellitus Hyperlipidemia Social History Social History Social History: Caffeine-coffee Smoking packs per day: 1 Smoking cigarettes per day: 20.0 Years smoked: 18 Smoking pack-years: 18.00 Smoking status: Former smoker Tobacco type: cigarettes Second hand tobacco smoke exposure: No Smoking end date: 07/01/14 Additional smoking assessment comments: 2009 Alcohol intake: former Substance use: never Substance use type: does not use Do You Feel Safe in your Home?: Yes Lack of Transportation: No Lack of Food: Never True Current Housing: I Have Housing Concerned About Future Housing: No Difficulty Paying Gas/Electric Bills: No Difficulty Paying for Meds: No Currently Unemployed: No Education: Trade/Vocational Certificate Difficulty w/ Childcare or Family Care: No Living arrangements: alone Spiritual care concerns: No Medications Home Medications ?Medication ?Instructions ?Recorded ?Confirmed ?Type fexofenadine 60 mg-pseudoephedrine 1 tablet PO Q12H PRN nasal 05/30/23 09/01/24 Rx ER 120 mg tablet,ext.release,12 hr congestion #60 tabs estradiol 2 mg tablet 1 mg PO DAILY 02/18/24 09/01/24 History hydroxychloroquine 200 mg tablet 200 mg PO BID 02/18/24 09/01/24 History (Plaquenil) cetirizine 10 mg tablet 10 mg PO DAILY #90 tabs 05/13/24 09/01/24 Rx duloxetine 20 mg capsule,delayed 20 mg PO DAILY #90 caps 05/21/24 09/01/24 Rx release topiramate 50 mg tablet (Topamax) 50 mg PO BID #180 tabs 05/25/24 09/01/24 Rx mupirocin 2 % topical ointment 1 applic topical BID #22 grams 07/09/24 09/01/24 Rx triamcinolone acetonide 0.1 % 1 applic topical BID #30 grams 08/17/24 09/01/24 Rx topical cream tirzepatide (weight loss) 2.5 2.5 mg (0.5 mL) subcut WEEKLY #2 mL 09/01/24 09/01/24 Rx mg/0.5 mL subcutaneous pen injector (Sharmilaound) amoxicillin 875 mg-potassium 1 tablet PO BID #20 tabs 09/23/24 Rx clavulanate 125 mg tablet fluconazole 150 mg tablet 150 mg PO Q72H #2 tabs 09/23/24 Rx nystatin 100,000 unit/gram topical 1 applic topical BID #30 grams 09/23/24 Rx cream levothyroxine 75 mcg tablet 75 mcg PO DAILY #90 tabs 11/18/24 Rx (Synthroid) semaglutide (weight loss) 0.25 0.25 mg (0.5 mL) subcut WEEKLY #2 11/26/24 Rx mg/0.5 mL subcutaneous pen mL injector (Christiana) cyclobenzaprine 10 mg tablet 10 mg PO .HS PRN muscle spasm #90 12/02/24 Rx tabs methocarbamol 750 mg tablet 750 mg PO DAILY PRN muscle pain 12/02/24 Rx #90 tabs guanfacine 1 mg tablet,extended 1 mg PO DAILY #90 tabs 12/17/24 Rx release 24 hr lisdexamfetamine 60 mg capsule 60 mg PO DAILY #30 caps 12/18/24 Rx (Vyvanse) lisdexamfetamine 60 mg capsule 60 mg PO DAILY #30 caps 12/18/24 Rx (Vyvanse) clotrimazole-betamethasone 1 1 applic topical BID #45 grams 12/23/24 Rx %-0.05 % topical cream omeprazole 20 mg capsule,delayed 20 mg PO BID #180 caps 12/23/24 Rx release bupropion HCl 300 mg 24 hr tablet, 300 mg PO QAM #90 tabs 01/15/25 Rx extended release (Wellbutrin XL) naltrexone 50 mg tablet 50 mg PO DAILY #90 tabs 01/15/25 Rx lisdexamfetamine 60 mg capsule 60 mg PO DAILY #30 caps 01/18/25 Rx (Vyvanse) ondansetron 8 mg disintegrating 8 mg PO Q8H PRN nausea and 01/26/25 Rx tablet vomiting #30 tabs Sleep Procedure The sleep study was completed using [employer] a technically adequate device with seven channels: peripheral arterial tone, actigraphy, body position, snore, respiratory movement, pulse oximetry, sleep staging, and heart rate. Prior to using the device, the patient received verbal and written instructions for its application and was provided with the help desk phone number for additional telephonic instruction with 24-hour availability of qualified personnel to answer questions. The study was scored using CMS guidelines. Sleep Architecture The total recording time is 7 hrs, 9 min. The total sleep time is 5 hrs, 12 min. Sleep latency is 31 minutes. REM latency is 132 minutes. The patient had 19 episodes of waking. Sleep architecture shows 7.2% deep sleep, 85.4% light sleep, and (as % Total Sleep Time) showed NREM (Light 85.4%; Deep 7.2%), and a 7.4% stage REM. The patient spent 34.1% of total sleep time in the supine position. Sleep efficiency was 72.73. Respiratory Analysis The overall AHI (pAHI 4%:) is 7.1. The overall AHI (pAHI 3%:) is 15.0. The central AHI is 0.0. The AHI was N/A in NREM and N/A in REM sleep. The AHI was 17.3 in Supine and 13.8 in Non-supine sleep. Percent of Abelino Patel respirations is 0.0. Oximetry Data The oxygen desaturation index (JASWINDER 4%:) is 5.9. The mean saturation is 96%, and the lowest saturation is 89%. Time spent with saturation < 88% is 0.0 minutes. Snoring Profile Snoring average intensity is 42 dB. The patient snored above 45 decibels for 24.1 minutes, 7.7% of sleep time. Cardiac Profile The average pulse rate is 67 beats per minutes. The lowest pulse rate is 53 bpm. The highest pulse rate reported is 96 bpm. Atrial fibrillation was not detected. Premature beats occur <0.1 per minute. Assessment and Plan Assessment and Plan (1) SHAILESH (obstructive sleep apnea): Code(s): G47.33 - Obstructive sleep apnea (adult) (pediatric) Status: Acute Assessment and Plan: The patient had an overall AHI of 7.1 with desaturation down to 89%. This is consistent with mild sleep apnea. Due to the patient's ADHD, she qualifies for treatment. I recommend that the patient be prescribed Resmed AutoPAP 5-15 cm H2O, CPAP mask/filters/tubing and heated humidity. A mandibular advancement device is also an acceptable treatment option. This should be used with all episodes of sleep.? Compliance should be reviewed within 31-90 days of starting therapy for usage greater than 4 hours per night greater than 70% of the nights. The patient should be asked about symptoms such as?excessive daytime sleepiness, quality of sleep, decreased nocturia, increased?mental functioning such as memory, mood, and concentration. Data The data obtained during this sleep study is adequate for interpretation. Certification This sleep study has been reviewed by a board certified sleep medicine physician.
== END 2024-12-30 12:25 | disposition home or self-care (01) ==
LOC: ANHCSM 08:16
PROVIDERS: PCP Nurse Practitioner Family; Visit Provider Nurse Practitioner Family
DX: G47.9 Sleep disorder, unspecified (principal); R53.83 Other fatigue; G47.33 Obstructive sleep apnea (adult) (pediatric)
CPT/HCPCS: 95800

== ENCOUNTER 2025-01-05 09:15 | Outpatient (RCR) | payer OTHER, SELFPAY ==
--- NOTE | 2024-12-11 16:39 | OPREHPOC ---
Outpatient Therapy Plan of Care This is a Multidisciplinary Plan of Care that may contain components documented by all disciplines (PT, OT, and ST.) PT Problem 1 PT Problem #1 Knowledge Deficit PT Goal 1 Goal / Goal Update [place] with HEP Target Visit 4 PT Goal 2 Goal / Goal Update 1. Report no pain greater than 2/10 for 2 consecutive weeks 2. Report 50% improvement in quality and quantity of sleep Target Visit 8 PT Problem 2 PT Problem #2 Impaired Range of Motion PT Goal 1 Goal / Goal Update Demonstrate 70 degrees jack cervical rotation to reduce muscular restriction and tension Target Visit 8 PT Problem 3 PT Problem #3 Impaired Functional Mobility PT Goal 1 Goal / Goal Update 1. Report 15% improvement in Neck Index Target Visit 8
--- NOTE | 2024-12-11 16:39 | PTOPEVAL1 ---
Assessment and note entered by Calvin Hairston, PT Evaluation Information Assessment Status Evaluation Diagnosis Migraines ICD-10 Condition Codes (PT) Cervicalgia M54.2 Onset 11/20/24 Subjective Information Reports that she has history of migraines with the worst she has ever had 3 weeks ago. She has history of R rotator cuff repair. She also has a history of carpal tunnel and Ulnar release surgery . She feels that majority of her issues are tension in nature. She always feels them first thing in the morning. She is being checked for sleep apnea. Currently feels she has had headache symptoms for 3 weeks. No resolution at this time with over the counter medication. Reported Pain Level Pain Score 1: Self Report Assessment PT Clinical Summary Patient presents with restricted cervical mobility and soft tissue restriction in functional cervical motion. Patient will benefit from skilled therapy to address these deficits and reduce cervical tension though manual intervention, trigger point therapy, and postural training. Plan of Care Interventions Electrical Stimulation,Manual Therapy,Neuro Re- education,Therapeutic Activities,Therapeutic Exercise Other Interventions Dry Needling PT Services Indicated Yes Treatment Frequency and 1x/week for 5 visits Duration These treatments will address the objective and functional deficits as defined above. The patient will be advanced safely and appropriately in order for the patient to progress towards his/her prior level of function. Additional exercises will be introduced and as well as a comprehensive home exercise program upon discharge, if needed, ?to ensure carryover of functional gains achieved in the clinic. This treatment plan has been reviewed and agreement upon by the patient.
--- NOTE | 2024-12-29 14:14 | PCPTNOTE ---
Patient cancelled today's appointment.
--- NOTE | 2025-01-05 09:50 | OPREHPOC ---
Outpatient Therapy Plan of Care This is a Multidisciplinary Plan of Care that may contain components documented by all disciplines (PT, OT, and ST.) PT Problem 1 PT Problem #1 Knowledge Deficit PT Goal 1 Goal / Goal Update [place] with HEP Target Visit 4 Progress Met PT Goal 2 Goal / Goal Update 1. Report no pain greater than 2/10 for 2 consecutive weeks 2. Report 50% improvement in quality and quantity of sleep Target Visit 8 Progress Met PT Problem 2 PT Problem #2 Impaired Range of Motion PT Goal 1 Goal / Goal Update Demonstrate 70 degrees jack cervical rotation to reduce muscular restriction and tension Target Visit 8 Progress Met PT Problem 3 PT Problem #3 Impaired Functional Mobility PT Goal 1 Goal / Goal Update 1. Report 15% improvement in Neck Index Target Visit 8 Progress Met
--- NOTE | 2025-01-05 09:51 | PTOPDC ---
Assessment and note entered by Calvin Hairston, PT Evaluation Information Assessment Status Discharge Diagnosis Migraines ICD-10 Condition Codes (PT) Cervicalgia M54.2 Onset 11/20/24 Subjective Information States that overall she is doing much better. Reports that she feels symptoms are resolved at this time. Requests discharge. Reported Pain Level Pain Score 1: Self Report Assessment PT Clinical Summary Patient has met all goals for therapy and is suitable for discharge at this time to [facility]. Patient will follow up with therapy in the future as needed. Plan of Care PT Services Indicated Yes
== END 2025-01-06 11:42 | disposition home or self-care (01) ==
LOC: ANHGOSHPT 09:15
PROVIDERS: PCP Nurse Practitioner Family; Visit Provider Nurse Practitioner Family
DX: M54.2 Cervicalgia (principal)
CPT/HCPCS: 97110; 97140; 97161

== ENCOUNTER 2025-03-19 08:00 | Outpatient (CLI) | payer OTHER, SELFPAY ==
[2025-03-19 13:40] LABS: Alanine Aminotransferase 32 U/L (6-35); Albumin Level 4.2 g/dL (3.5-5.1); Alkaline Phosphatase 64 U/L (38-126); Anion Gap 7 mmol/L (4-12); Aspartate Amino Transferase 56 U/L (14-36); Bilirubin,Total 0.3 mg/dL (0.2-1.3); Blood Urea Nitrogen 13 mg/dL (7-17); Calcium 8.9 mg/dL (8.4-10.2); Carbon Dioxide 29 mmol/L (22-30); Chloride 101 mmol/L (98-107); Estimated Glomerular Filt Rate > 60; Glucose 75 mg/dL (65-110); Potassium 3.7 mmol/L (3.4-5.0); Sodium 137 mmol/L (137-145); Total Protein 7.1 g/dL (6.3-8.2)
[2025-03-19 13:55] LABS: Free T3 4.36 pg/mL (2.71-6.16); Free T4 Free Thyroxine 1.06 ng/dL (0.78-2.19)
[2025-03-19 14:16] LABS: Thyroid Stimulating Hormone 3.150 uIU/mL (0.465-4.680)
[2025-03-19 15:21] LABS: Vitamin B12 411.0 pg/mL (239-931)
== END 2025-03-19 08:01 | disposition home or self-care (01) ==
LOC: ANHGOSHLAB 08:01
PROVIDERS: PCP Nurse Practitioner Family; Visit Provider Nurse Practitioner Family
DX: R41.89 Other symptoms and signs involving cognitive functions and awareness (principal); R00.2 Palpitations; G47.00 Insomnia, unspecified; R53.83 Other fatigue; E55.9 Vitamin D deficiency, unspecified; E66.3 Overweight; E53.9 Vitamin B deficiency, unspecified; E03.9 Hypothyroidism, unspecified
CPT/HCPCS: 36415; 80053; 82306; 82533; 82607; 84439; 84443; 84481

== ENCOUNTER 2025-05-06 07:25 | Outpatient (CLI) | payer OTHER, SELFPAY ==
--- NOTE | ~2025-05-06 | XR_ITS ---
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 Findings: No acute fracture or malalignment. No significant degenerative changes. Soft tissues unremarkable. Impression: No acute fracture or malalignment. Reviewed, dictated and finalized at location P. NESS DEVELOPMENT SALES EXECUTIVE Impression: No acute fracture or malalignment.
--- NOTE | ~2025-05-06 | MM_ITS ---
EXAMINATION: MM screening [facility] BI w dorina HISTORY: Screening TECHNIQUE: Craniocaudal and mediolateral oblique 3-D tomosynthesis images were obtained and synthetic 2-D images were generated. CAD analysis was submitted and interpreted. COMPARISON: Comparison to multiple prior studies sequentially, with oldest reviewed study dated , 08/28/2017 BREAST PARENCHYMAL COMPOSITION: The breasts are almost entirely fatty. FINDINGS: There is no evidence of suspicious mass, calcification, or architectural distortion to suggest malignancy in either breast. IMPRESSION: 1. No mammographic evidence of malignancy. 2. Recommend routine screening mammography in one year. BI-RADS Category 1: Negative Reviewed, dictated and finalized at location B. [facility]
--- OUTSIDE RECORDS SUMMARY | 2025-05-06 16:25 | XMS_ITS | Clinical Summary ---
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 Gender Identity Not on file Sexual Orientation Not on file Plan of Treatment Health Maintenance Due Date Last Done Comments Hepatitis C Virus (HCV) Screening 1970 Hepatitis B Immunization (1 of 3 - 19+ 3-dose series) 1989 Pap Smear 1991 Cervical Cancer Screening (CCS) 2000 HPV/Cotest 2000 Cologuard 2015 Colonoscopy 2015 Colorectal Cancer Screening 2015 Immunochemical Fecal Occult Blood 2015 Pneumococcal Immunization (5 0+ years) (1 of 1 - PCV) 2020 Zoster Immunization (1 of 2) 2020 Influenza Immunization (#1) 2025 04/23/2019 SARS-COV-2 Immunization ( - season) 2025 Respiratory Syncytial Virus (RSV) Immunization (Adult) (1 - 1-dose 75+ series) 2045 DTaP/Tdap/Td Immunization Discontinued 03/01/2016 TdaP Immunization Completed 03/01/2016 Human Papillomavirus (HPV) Immunization Aged Out No longer eligible b ased on patient's age to complete this topic Meningococcal Immunization (ACWY) Aged Out No longer eligible based on patient's age to complete this topic Rotavirus Immunization Aged Out No lo nger eligible based on patient's age to complete this topic
--- OUTSIDE RECORDS SUMMARY | 2025-05-06 16:25 | XMS_ITS | Clinical Summary ---
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 08/25/2014 Active SYNTHROID 100 MCG tablet 03/28/2018 Active omeprazole 20 MG capsule 08/03/2018 Active SUMAtriptan 100 MG tablet 07/26/2014 Active topiramate 50 MG Tab 08/03/2018 Active benzonatate (TESSALON PERLES) 100 MG capsule Take 1 capsule (100 mg total) by mouth 3 (three) times daily as needed. 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 Legal Sex Female 3:18 AM CDT Gender Identity Not on file Sexual Orientation Not on file Last Filed Vital Signs Vital Sign Reading Time Taken Comments Blood Pressure 100/70 08/24/2018 5:07 PM ENTRY LEVEL MANAGEMENT Pulse 97 08/24/2018 6:03 PM ENTRY LEVEL MANAGEMENT Temperature 37.3 C (99.1 F) 08/24/2018 6:03 PM ENTRY LEVEL MANAGEMENT Respiratory Rate 18 08/24/2018 6:03 PM ENTRY LEVEL MANAGEMENT Oxygen Saturation 97% 08/24/2018 6:03 PM ENTRY LEVEL MANAGEMENT Inhaled Oxygen Concentration - - Weight 64 kg (141 lb) 08/24/2018 5:07 PM ENTRY LEVEL MANAGEMENT Height 162.6 cm (5' 4) 08/24/2018 5:07 PM ENTRY LEVEL MANAGEMENT Body Mass Index 24.2 08/24/2018 5:07 PM ENTRY LEVEL MANAGEMENT Plan of Treatment Health Maintenance Due Date Last Done Comments Colorectal Cancer Screening Colonoscopy (10 Years) 1970 Annual Physical 1973 Hepatitis C 1988 Hepatitis B Vaccines (1 of 3 - 19+ 3-dose series) 1989 Mammogram Screening 2010 COVID-19 Vaccine ( season) 2025 06/14/2021, 08/30/2020, 08/02/2020 Influenza Adult (#1) 2025 03/14/2024, 04/19/2023, 08/13/2019, Additional history exists DTaP, Tdap and Td Vaccines (3 - Td or Tdap) 09/13/2033 09/14/2023, 03/01/2016 Pneumococcal Vaccine: 50+ Years Completed 09/14/2023 Zoster Vaccines Completed 03/14/2024, 09/14/2023 Hepatitis A Vaccines Aged Out No long er eligible based on patient's age to complete this topic Meningococcal B Vaccine Aged Out No l onger eligible based on patient's age to complete this topic Meningococcal Vaccine Aged Out No mary rogelio eligible based on patient's age to complete this topic RSV Immunizations Under 20 Months Aged Out No longer eligible based on patient's age to complete this topic Insurance [facility] Care Teams 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
--- OUTSIDE RECORDS SUMMARY | 2025-05-06 16:25 | XMS_ITS | Data Portability ---
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 Name Role Phone LETI SALINAS Primary Care Provider DELBERT SHIN Primary Care Provider [phone] Assessment Encounter Date Assessment Date Assessment LastModified [...] Lab hsv (1+2) igm, serum 2020 021 [facility] (Lab), [address], [place], [address], 18:49:12 hsv-1 igg Ab, serum 2020 021 [facility] (Lab), [address], [place], [address], 18:49:10 hsv-2 igg Ab, serum 2020 [facility] (Lab), [address], [place], [address], 18:49:11 hbcab (hepatit is B core Ab) igm, serum 2020 [facility] (Lab), [address], [place], [address], 18:49:12 HBsAg (hepatit is B surface Ag), serum 2020 [facility] (Lab), [address], [place], [address], 18:49:10 hepatiti s C virus Ab, serum 2020 [facility] (Lab), [address], [place], [address], 18:49:10 unlisted lab - HIV 1/2 antigen/ antibody , reflex confirma tion 2020 [facility] (Lab), [address], [place], [address], 18:49:11 RPR (rapid plasma reagin), serum 2020 [facility] (Lab), [address], [place], [address], 18:49:12 Referral None recorded . Procedures None recorded . Surgeries None recorded . Imaging MAMMO, screenin g, bilatera l [address] [facility], [address], [address], [address], 4 14:54:58 MAMMO, diagnost ic, digital, bilatera l [address], [address], [address], [place], [address], 2 14:32:28 US, breast, bilatera l, w/ axilla [address], [address], [address], [place], [address], 2 14:32:28 Medication Orders phenterm ine 15 mg capsule 2023 024 [email or web address] [facility][id number], [address], [place], [id number], 4 14:29:46 topirama te 50 mg tablet 2023 024 TOMI [facility] #30538, [address], [place], [id number], 4 17:41:04 estradio l 2 mg tablet 2023 024 TOMI Not available 4 14:06:50 Wegovy 0.25 mg/0.5 mL subcutan eous pen injector 2023 024 [facility] #82759, [address], [place], [id number], 4 15:44:54 clotrima zole-bet amethaso ne 1 %-0.05 % topical cream 2023 024 TOMI Not available 4 14:12:53 medroxyp rogester one 10 mg tablet 2022 023 [email or web address] Not available 4 14:06:05 nystatin -triamci nolone 100,000 unit/gra m-0.1 % topical ointment 2021 [facility], [address] [facility] , [place], [address], 3 12:04:37 Diflucan 150 mg tablet 2020 [email or web address] [facility] #33246, [address], [place], [id number], 4 13:57:35 nystatin -triamci nolone 100,000 unit/gra m-0.1 % topical ointment 2020 [facility]30824, [address] [facility], [place], [place], [id number], 3 12:04:37 Patient TargetsNo targets recorded. Patient [...] used inter walker eably . Not Available [facility] (Lab) [address], [place], [address], 04/08/2021 18:49:10 04/06/20 21 04/06/2021 HEPAT ITIS [...] used inter walker eably . Not Available [facility] (Lab) [address], [place], [address], 04/08/2021 18:49:10 04/06/20 21 04/06/2021 HERPE S SMPLE X VIRUS TYPE 1 SPECI FIC AB, IGG herpes simplex virus 1 IgG Negati ve negati ve Not Available [facility] (Lab) [address] [place], [address], 04/08/2021 18:49:10 04/06/20 21 04/06/2021 HERPE S SMPLE X VIRUS TYPE 1 SPECI FIC AB, IGG herpes simplex virus 1 IgG, quant <0.2 ai 0.0-0. 8 Not Available [facility] (Lab) [address], [place], [address], 04/08/2021 18:49:10 04/06/20 21 04/06/2021 HERPE S SIMPL EX VIRUS TYPE 2 SPECI FIC AB, IGG herpes simplex virus 2 IgG Negati ve negati ve Not Available [facility] (Lab) [address], [place], [address], 04/08/2021 18:49:11 04/06/20 21 04/06/2021 HERPE S SIMPL EX VIRUS TYPE 2 SPECI FIC AB, IGG herpes simples virus 2 IgG, quant <0.2 ai 0.0-0. 8 Not Available [facility] (Lab) [address] [place], [address], 04/08/2021 18:49:11 04/06/20 21 04/06/2021 HIV 1/2 ANTIG EN/AN TIBOD Y, REFLE X CONFI RMATI ON HIV Ag-Ab total quant 0.11 idx <1.00 Not Available [facility] (Lab) [address] [place], [address], 04/08/2021 18:49:11 04/06/20 21 04/06/2021 HIV 1/2 ANTIG EN/AN TIBOD Y, REFLE X CONFI RMATI ON HIV Ag-Ab total Non-re active non-re active Not Available [facility] (Lab) [address], [place], [address], 04/08/2021 18:49:11 04/06/20 21 04/06/2021 HIV 1/2 ANTIG EN/AN TIBOD Y, REFLE X CONFI RMATI ON HIV-1 antibody quant 0.06 idx <1.00 Not Available [facility] (Lab) [address], [place], [address], 04/08/2021 18:49:11 04/06/20 21 04/06/2021 HIV 1/2 ANTIG EN/AN TIBOD Y, REFLE X CONFI RMATI ON HIV-1 antibody Non-re active non-re active Not Available [facility] (Lab) [address], [place], [address], 04/08/2021 18:49:11 04/06/20 21 04/06/2021 HIV 1/2 ANTIG EN/AN TIBOD Y, REFLE X CONFI RMATI ON HIV-1 antigen (P24) quant 0.11 idx <1.00 Not Available [facility] (Lab) [address] [place], [address], 04/08/2021 18:49:11 04/06/20 21 04/06/2021 HIV 1/2 ANTIG EN/AN TIBOD Y, REFLE X CONFI RMATI ON HIV-1 antigen (P24) Non-re active non-re active Not Available [facility] (Lab) [address] [place], [address], 04/08/2021 18:49:11 04/06/20 21 04/06/2021 HIV 1/2 ANTIG EN/AN TIBOD Y, REFLE X CONFI RMATI ON HIV-2 antibody quant 0.04 idx <1.00 Not Available [facility] (Lab) [address] [place], [address], 04/08/2021 18:49:11 04/06/20 21 04/06/2021 HIV 1/2 [...] on will be perfo rmed by the [employer] HIV 1/2 Suppl ement al Assay . The perfo rmanc e of this assay has not been estab lishe d for neona farida and the assay shoul d not be used in indiv idual s young er than 2 years of age. Not Available [facility] (Lab) [address], [place], [address], 04/08/2021 18:49:11 04/06/20 21 04/06/2021 HEPAT ITIS B CORE, IGM hepatitis B core IgM antibody Negati ve negati ve Not Available [facility] (Lab) [address] [place], [address], 04/08/2021 18:49:12 04/06/20 21 04/06/2021 RPR SCREE N/REF AMADO TITER /FTA RPR screen Nonrea ctive nonrea ctive Not Available [facility] (Lab) [address] [place], [address], 04/08/2021 18:49:12 04/06/20 21 04/06/2021 HERPE S SIMPL EX VIRUS , 1 AND 2 IGM, IFA hsv 1 IgM screen NEGATI VE negati ve Not Available [facility] (Lab) [address], [place], [address], 04/08/2021 18:49:12 04/06/20 21 04/06/2021 HERPE S [...] and HSV 2. This assay was devel oped and its perfo rmanc e frank cteri stics have been deter mined by [employer]. Perfo rmanc e frank cteri stics refer to the dani tical perfo rmanc e of the test. Perfo rming Organ izati on Tomr bowenjose rafael n: Site ID: [id number] Name: [employer]-Vanessa sylvester Jean Addre ss: [id number] [place] [address] Direc tor: Camden sprague M.D. Not Available [facility] (Lab) [address], [place], [address], 04/08/2021 18:49:12 04/06/20 21 04/06/2021 VAGIN ITIS/ VAGIN OSIS, DNA PROBE reshma sp. detection, direct probe Negati ve negati ve Not Available [facility] (Lab) [address] [place], [address], 04/12/2021 23:37:53 04/06/20 21 04/06/2021 VAGIN ITIS/ VAGIN OSIS, DNA PROBE gardnerella vag. detection, direct probe Negati ve negati ve Not Available [facility] (Lab) [address], [place], [address], 04/12/2021 23:37:53 04/06/20 21 04/06/2021 VAGIN ITIS/ VAGIN OSIS, DNA PROBE trichomonas vag. detection, direct probe Negati ve negati ve Not Available [facility] (Lab) [address], [place], [address], 04/12/2021 23:37:53 04/06/20 21 04/06/2021 CULTU RE: HERPE S SIMPL EX VIRUS (HSV) , REFLE X TYPIN G source SWAB Not Available [facility] (Lab) [address], [place], [address], 04/12/2021 23:37:54 04/06/20 21 04/06/2021 CULTU RE: HERPE S SIMPL EX VIRUS (HSV) , REFLE X TYPIN G hsv culture, body fluid NOT ISOLAT ED REFER ENCE RANGE : NOT ISOLA RHONA Perfo rming Organ izati on Infor matio n: Site ID: [id number] Name: [facility] [facility] Addre ss: [id number] [address] [facility] [place] [address] Direc tor: Lynda schulte MD Not Available [facility] (Lab) [address] , [place], [address], 04/12/2021 23:37:54 04/06/20 21 04/06/2021 urina lysis , dipst ick Leukocytes neg Not Available Sol perez [address], [place], [address], 04/06/2021 16:15:49 04/06/20 21 04/06/2021 urina lysis , dipst ick Nitrite neg Not Available [address], [place], [address], 04/06/2021 16:15:49 04/06/2004/06/2021 urina lysis , dipst ick Urobilinogen neg Not Available [facility] [address], [place], [address], 04/06/2021 16:15:49 04/06/2004/06/2021 urina lysis , dipst ick Protein neg Not Available [place] [address], [place], [address], 04/06/2021 16:15:49 04/06/2004/06/2021 urina lysis , dipst ick pH 6 Not Available [place] [address], [place], [address], 04/06/2021 16:15:49 04/06/2004/06/2021 urina lysis , dipst ick Specific [place] 1.020 Not Available [facility] [address], [place], [address], 04/06/2021 16:15:49 04/06/2004/06/2021 urina lysis , dipst ick Ketone neg Not Available [place] [address], [place], [address], 04/06/2021 16:15:49 04/06/2004/06/2021 urina lysis , dipst ick Bilirubin neg Not Available [facility] [address], [place], [address], 04/06/2021 16:15:49 04/06/20 21 04/06/2021 urina lysis , dipst ick Glucose neg Not Available [place] [address], [place], [address], 04/06/2021 16:15:49 04/06/2004/06/2021 urina lysis , dipst ick Appearance clear Not Available [facility] [address], [place], [address], 04/06/2021 16:15:49 04/06/2004/06/2021 urina lysis , dipst ick Color yellow Not Available [place] [address], [place], [address], 04/06/2021 16:15:49 Result Notes None recorded. Problems Name Problem SNOMED Code Status Onset Date Resolution Date Notes Provider Name and Address Organization Details Recorded Time Speciali zed medical examinat ion Completed 201307/20/2020 Other specifie d chlamydi al diseases ;Recorde d Elsewher e: No Locat ion: [facility] S ource: [employer] Research Analyst petra: N Dimple ce ID: 0001 [place] l[place] Time: 10:30:00 AM Susan ball, [facility] 15:34:29 Venereal disease screenin g Completed 201307/20/2020 Screenin g examinat ion for venereal disease; Recorded Elsewher e: No Locat ion: [facility] S ource: [employer] Analyst petra: N Dimple ce ID: 0001 [place] l[place] Time: 10:30:00 AM Susan ball, [facility] 15:34:31 Screenin g for malignan t neoplasm of cervix Completed 201307/20/2020 Screenin g for malignan t neoplasm s of the cervix;R ecorded Elsewher e: No Locat ion: [facility] S ource: [employer] Analyst petra: N Dimple ce ID: 0001 [place] l[place] Time: 10:30:00 AM Susan ball [facility] 15:34:14 Adult health examinat ion Completed 201307/20/2020 ROUTINE MEDICAL EXAM;Rec orded Elsewher e: No Locat ion: [facility] S ource: [employer] Analyst petra: N Rojelioti ce ID: 0001 [place] Time: 10:30:00 AM Susan ball, [facility] 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 15:34:26 Menstrua tion finding Completed 201407/20/2020 Excessiv e menstrua l bleeding ;Recorde d Elsewher e: No Locat ion: [facility] S ource: [employer] Analyst petra: N Rojelioti ce ID: 0001 [place] l[place] Time: 10:15:00 AM Susan Ericksontz lizzy, [facility] 1 15:33:53 Pregnanc y test negative [id number] Completed 201407/20/2020 Pregnanc y examinat ion or test, negative result;R ecorded Elsewher e: No Locat ion: [facility] S ource: [employer] Research Analyst petra: N Rojelioti ce ID: 0001 [place] Time: 12:00:00 PM Susan Cisse lizzy, [facility] 1 15:34:05 Insertio n of intraute rine contrace ptive device Completed 201407/20/2020 INSERTIO N OF IUD;Edwin rded Elsewher e: No Locat ion: [facility] S ource: [employer] Analyst petra: N Rojelioti ce ID: 0001 [place] Time: 12:00:00 PM Susan Cisse lizzy [facility] 01/20/202 1 15:33:46 Uses IUD (intraut erine device) contrace ption [id number] Completed 201407/20/2020 Surveill ance of intraute rine contrace ptive device;R ecorded Elsewher e: No [facility]: [employer] Research Analyst petra: N Dimple ce ID: 0001 [place] l[place] Time: 10:30:00 AM Susan ball, [facility] 1 15:33:48 Procedur e by method Completed 201507/20/2020 Encounte r for other general counseli ng and advice on contrace ption;Re corded Elsewher e: No Locat ion: [facility]: Gracie Musa ce ID: 0001 [place] l[place] Time: 10:30:00 AM Susan Cisse [facility], [facility] 1 15:33:19 Removal of intraute rine device Completed 201607/20/2020 Encounte r for removal of intraute rine contrace ptive device;R ecorded Elsewher e: No Locat ion: [facility] petra: N Dimple ce ID: 0001 [place] l[place] Time: 02:30:00 PM Susan ball [facility] 1 15:34:10 Finding of menstrua l bleeding Completed 201607/20/2020 Excessiv e and frequent menstrua tion with regular cycle;Re corded Elsewher e: No [facility] our[facility]: [employer] Analyst petra: N Rojelioti ce ID: 0001 [place] lable Time: 08:45:00 AM Susan ball [facility] 1 15:33:22 Lesion of ovary Completed 201607/20/2020 Other ovarian cyst, right side;Rec orded Elsewher e: No Locat ion: [facility] S ource: [employer] Analyst petra: N Rojelioti ce ID: 0001 [place] lable Time: 09:15:[address] [facility] 1 15:33:17 Imaging result abnormal [id number] Completed 201607/20/2020 Abnormal findings on diagnost ic imaging of body structur es;Recor ded Elsewher e: No Locat ion: [facility] S ource: [facility] petra: N Rojelioti ce ID: 0001 [place] lable Time: 08:45:[address] [facility] [address] 15:33:[address] Concept Completed 201707/20/2020 Encntr for general adult medical exam w/o abnormal findings ;Recorde d Elsewher e: No Locat ion: [facility] S ource: [facility] petra: N Dimple ce ID: 0001 [place] lable Time: 02:30:[address] [facility] 1 15:34:21 Hypertro phy of uterus [id number] Completed 201707/20/2020 Enlarged uterus;R ecorded Elsewher e: No Locat ion: [facility] S ource: [facility] petra: N Rojelioti ce ID: 0001 [place] l[place] Time: 02:30:00 PM Susan Cisse [facility] 1 15:33:43 Cyst of ovary Completed 201704/05/2021 Unspecif ied ovarian cyst, unspecif ied side;Rec orded Elsewher e: No Locat ion: [facility] S ource: [facility] petra: N Rojelioti ce ID: 0001 [place] lable Time: 03:00:00 PM Beverly blal [facility] 1 16:21:42 Lymphoep ithelial cyst of mouth [id number] Completed 201704/05/2021 Dermoid cyst;Rec orded Elsewher e: No Locat ion: [facility] S ource: [employer] Research Analyst petra: N Practi ce ID: 0001 [place] lable Time: 03:30:00 PM Beverly ball, [facility] 16:21:44 Polyp of cervix [id number] Completed 201707/20/2020 Polyp of cervix uteri;Pr actice ID: 0001 Susan Cisse [facility], [facility] 15:34:00 Follicul ar cyst of right ovary [id number] Completed 201707/20/2020 Follicul ar cyst of right ovary;Pr actice ID: 0001 Susan Cisse lizzy, [facility] 15:33:31 Follicul ar cyst of left ovary [id number] Completed 201707/20/2020 Follicul ar cyst of left ovary;Pr actice ID: 0001 Susan Cisse lizzy, [facility] 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 15:33:14 Polyp of corpus uteri [id number] Completed 201704/05/2021 Polyp of corpus uteri;Pr actice ID: 0001 Beverly blal, [facility] 16:21:46 Procedur e on genitour inary system Completed 201707/20/2020 Encounte r for surgical aftcr followin g surgery on the sys;Prac silke ID: 0001 Susan ball, [facility] 15:34:08 Postoper ative care Completed 201707/20/2020 Encounte r for surgical aftcr followin g surgery on the sys;Prac silke ID: 0001 Susan ball [facility] 15:34:03 Acute vaginiti s [id number] Completed 201707/20/2020 Acute vaginiti s;Practi ce ID: 0001 Susan ball [facility] 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 15:34:23 Screenin g for malignan t neoplasm of rectum Completed 201807/20/2020 Encounte r for screenin g for malignan t neoplasm of rectum;P ractice ID: 0001 Susan ball [facility] 15:34:16 Pelvic and perineal pain [id number] Completed 201907/20/2020 Pelvic and perineal pain;Pra ctice ID: 0001 Susan ball [facility] 15:33:56 Sexual function painful Completed 201907/20/2020 Unspecif ied dyspareu ronnie;Prac silke ID: 0001 Susan Cisse [facility] 15:34:19 Problem Notes None recorded. Procedures Surgical History Date Name Laterality Status Provider Name and Address Organization Details Recorded Time 08/30/19 23 Date of Last Mammogram completed Faviola Cruz [facility] 10/31/2023 14:00:42 07/11/19 21 completed Susan Cisse [facility] 09/23/2020 14:29:47 07/11/19 21 completed Beverly Flores [facility] 04/06/2021 13:59:15 05/01/20 20 Date of Last [facility] 14:29:47 08/21/19 20 [facility]2020 14:29:47 01/09/20 19 Date of Last Pap Smear completed Faviola Cruz [facility] 10/31/2023 13:59:26 04/17/20 18 Ovarian Cystectomy completed [facility] 09/23/2020 14:29:47 04/17/20 18 Total Hysterectomy completed [facility] 09/23/2020 14:29:47 04/17/20 18 Oophorectomy completed [facility] 09/23/2020 14:29:47 03/31/20 18 laparoscopic total hysterectomy completed [facility] 07/20/2020 15:52:03 02/26/20 18 endometrial biopsy [facility]2020 15:03:40 05/28/20 11 Appendectomy completed [facility] 07/20/2020 15:49:04 07/01/19 06 [facility]2020 15:02:17 03/01/20 05 Tubal Ligation completed [facility] 07/20/2020 15:49:13 07/01/19 05 [facility]poscopy [facility]/2020 15:49:42 Tubal Ligation completed Beverly Flores [facility] 04/06/2021 13:59:26 Total Hysterectomy completed [facility] 04/06/2021 13:59:26 Ovarian Cystectomy completed [facility] 04/06/2021 13:59:26 Appendectomy completed [facility] 04/06/2021 13:59:26 Colposcopy completed [facility] 04/06/2021 13:59:26 Orthopedic Surgery completed [facility] 04/06/2021 13:59:26 Oophorectomy completed [facility] 04/06/2021 15:34:00 colonoscopy completed Medina Larsen [facility]- [address], [place], [address], [facility] 09/07/2021 13:17:09 Imaging Results None [...] mg intrauter ine device 09/20 completed Prescrib ed Elsewher e: Yes Loca tion: Salvador blanchard [facility] M odify By: joan thomas DateTime : 12/28/19 [...] Not Available Not Available No t Available doxycycli ne hyclate 100 mg capsule TAKE 1 CAPSULE BY MOUTH TWICE DAILY 10/30 completed Not Available Not Available Not Available clindamyc in HCl 300 mg capsule take 1 capsule by oral route every 12 hours for 7 days 07/24 completed Prescrib ed Elsewher e: No Locat ion: [facility] odify By: jerod thomas DateTime : 08/26/19 04:28:09 PM Not Available [...] tablet TAKE 1 TABLET BY MOUTH EVERY 72 HOURS active Not Available Not Available No t Available valacyclo vir 1 gram tablet TAKE [...] 1 TABLET BY MOUTH EVERY 12 HOURS active Not Available Not Available No t Available omeprazol e 40 mg capsule,d elayed release TAKE 1 CAPSULE BY MOUTH TWICE DAILY 09/07 completed Not Available Not Available Not Available tramadol 50 mg tablet TAKE 1 TABLET BY MOUTH EVERY 6 HOURS NEEDED FOR PAIN active Not Available Not Available No t Available triamcino lone acetonide 0.1 % topical cream APPLY TOPICALL Y TO THE AFFECTED AREA TWICE DAILY active Not Available Not Available No t Available phentermi ne 30 mg capsule TAKE 1 CAPSULE BY MOUTH EVERY DAY 12/22 completed Not Available Not Available Not Available levothyro xine 75 mcg tablet TAKE 1 TABLET BY MOUTH DAILY active Not Available Not Available No t Available terconazo le 80 mg vaginal supposito ry insert 1 supposit ory by vaginal route every day at bedtime for 3 nights 01/08 completed Prescrib ed Elsewher e: No Locat ion: [place] lo [facility] odify By: jackeline lebron DateTime : 10/04/19 19 09:09:31 AM Not Available Not Available Not [...] ed Elsewher e: No Locat ion: [place] [facility] odify By: jackeline lebron DateTime : 06/25/20 18 03:00:00 PM Not Available Not Available Not Available omeprazol e 10 mg capsule,d elayed release take 2 capsule by oral route every day before a meal 01/08 completed Prescrib ed Elsewher e: Yes Loca tion: Salvador blanchard [facility] odify By: jackeline lebron DateTime : [...] route every day 12/18 completed Prescrib ed Elsew e: Yes Loca tion: [facility] odify By: gregory kelseyrandal DateTime : 08/23/19 17 02:30:00 PM Not [...] capsule TAKE 1 CAPSULE BY MOUTH EVERY 12 HOURS active Not Available Not Available No t Available oseltamiv ir 75 mg capsule TAKE [...] 2024 active Not Available Not Available Not Avai labchris Lissette-D 12 Hour 60 mg-120 mg tablet,ex [...] 2023 active Not Available Not Available Not Avai labchris [address] 10 mg tablet TAKE 1 [...] mg capsule TAKE 1 CAPSULE BY MOUTH DAILY MUST TAKE 30 MINUTES BEFORE OR 1-2 HOURS AFTER BREAKFAS T active Not Available Not Available No t [...] He e: Yes Loca tion: Salvador blanchard [facility] oddave By: tmryan E ncounter DateTime : 06/25/20 18 03:00:00 PM Not Available Not Available Not Available escitalop carmen 10 mg tablet TAKE 1 TABLET BY MOUTH EVERY DAY AT BEDTIME active Not Available Not Available No t Available escitalop carmen 20 mg tablet TAKE [...] oral route every day 03/14 completed Prescrib audrey He e: No Locat ion: [facility] odify By: [email or web address] Blanchard ncounter DateTime : 08/23/19 17 02:30:00 PM Not Available Not Available Not Available duloxetin e 20 mg capsule,d elayed release TAKE 1 CAPSULE BY MOUTH DAILY active Not Available Not Available No t Available duloxetin e 30 mg capsule,d elayed [...] completed Not Available Not Available Not Available lisdexamf etamine 50 mg capsule TAKE 1 CAPSULE BY MOUTH EVERY DAY active Not Available Not Available No t Available FeroSul 325 mg (65 mg iron) tablet TAKE 1 TABLET BY MOUTH TWICE DAILY 10/30 completed Not Available Not Available Not Available lisdexamf etamine 60 mg capsule TAKE 1 CAPSULE BY MOUTH DAILY active Not Available Not Available No t Available lisdexamf etamine 20 mg capsule TAKE 1 CAPSULE BY MOUTH DAILY active Not Available Not Available No t Available lisdexamf etamine 40 mg capsule TAKE 1 CAPSULE BY MOUTH DAILY active Not Available Not Available No t Available Vicodin 5 mg-300 mg tablet take 1 tablet by oral route every 4 - 6 hours as needed for pain 06/25 completed Prescrib ed Ying e: Yes Loca tion: [facility] M odify By: amkmarion kelseyunter DateTime : 04/28/20 03:30:00 PM Not Available Not Available Not Available lisdexamf etamine 10 mg capsule TAKE ONE CAPSULE BY MOUTH DAILY WITH 20MG CAPSULE active Not Available Not Available No t Available baclofen 5 mg tablet TAKE 1 [...] Body mass index (BMI) Body weight Systolic And Diastolic Provider Name and Address Organization Details Last Updated DateTime 09/07/2021 162.56 cm 25.1 kg/m2 96766.49 g 126/74 mm[Hg] Beverly Flores [facility] 09/07/2021 12:58:47 Date Recorded Body height Body mass index (BMI) Body weight Systolic And Diastolic Provider Name and Address Organization Details Last Updated DateTime 10/11/2022 162.56 cm 27.1 kg/m2 07202.88 g 130/82 mm[Hg] Keerthi Chanel [facility] 10/11/2022 11:58:45 Date Recorded Body height Body mass index (BMI) Body weight Systolic And Diastolic Provider Name and Address Organization Details Last Updated DateTime 10/31/2023 162.56 cm 28.7 kg/m2 74311.93 g 122/79 mm[Hg] Faviola Cruz [facility] 10/31/2023 13:54:43 Date Recorded Body height Body mass index (BMI) Body weight Systolic And Diastolic Provider Name and Address Organization Details Last Updated DateTime 11/22/2023 162.56 cm 29.5 kg/m2 52392.89 g 132/81 mm[Hg] Vaishali Morocho [facility] 11/22/2023 15:44:36 Date Recorded Body height Body mass index (BMI) Body weight Systolic And Diastolic Provider Name and Address Organization Details Last Updated DateTime 04/06/2021 162.56 cm 23.9 kg/m2 97805.34 g 124/83 mm[Hg] Beverly Mark [facility] 04/06/2021 15:33:26 Social History Question Answer Notes LastModified by Organizat ion Details LastModified Time Tobacco Smoking Status Former Smoker Keerthihayes Dacostanikolas [facility] 10/11/2022 11:58:52 Do You Have An Advance Directive? No Information not available 04/06/2021 If You Are , What Was Your [...] Or The Highest Degree You Have Received? [id number] Information not available 04/06/2021 Are There Any [...] No Information not available 09/07/2021 Do You Use Sunscreen Routinely? No Information not available 04/06/2021 Has Tobacco Cessation Counseling Been Provided? No Information not available 10/11/2022 How Many Years Have You Smoked Tobacco? 25 Information not available 10/11/2022 Have You Used IV Drugs? No Information not available 04/06/2021 Do You Have Difficulty Walking Or Climbing Stairs? No Information not available 10/11/2022 Sex: Unknown Functional Status Question Answer Note LastModified by Organizat ion Details LastModified Time Do you use any illicit or recreational drugs? No [id number] Information not available 07/20/2020 Do you or have you ever used any other forms of tobacco or nicotine? No Information not available 10/11/2022 What is your level of alcohol consumption? Occasional [email or web address] Information not available 07/20/2020 Are you able to walk independently without assistance or assistive devices? YESWOREST Information not available 04/06/2021 Are you able to care for yourself independently? Yes Information not available 10/11/2022 What is your occupation? [employer] Information not available 04/06/2021 Do you have difficulty dressing, bathing, grooming, or toileting? No Information not available 10/11/2022 What is your exercise level? Occasional Information not available 07/20/2020 Mental Status Question Answer Note LastModified by Organization D etails LastModified Time Do you feel stressed (tense, restless, nervous, or anxious, or unable to sleep at night)? [id number] Information not available 10/11/2022 Family History Relationship Description Onset Age of this Age Resolved Age Notes LastModified by Organization Details LastModified Time Father No current problems or disability [email or web address] Not available 11/21 15:13:28 Father Hypercholest erolemia [email or web address] Not available 09/23 14:29:45 Father Heart disease [email or web address] Not available 09/23 14:29:45 Father Diabetes mellitus [email or web address] Not available 09/23 14:29:45 Father Blood coagulation disorder [email or web address] Not available 09/23 14:29:45 Mother No current problems or disability [email or web address] Not available 11/21 15:13:28 Mother Hypercholest erolemia [email or web address] Not available 09/23 14:29:44 Mother Blood coagulation disorder 73 [email or web address] Not available 2023 15:13:28 Mother Osteoporosis [id number] Not patricia ilable 09/23/2020 14:29:45 Mother Malignant neoplasm of lung Not available 09/23 14:29:45 Mother Blood coagulation [...] Diagnosis SNOMED-CT Code Diagnosis ICD10 Code Diagnosis IMO Codes Diagnosis Note [id number] Medina Larsen [facility] [address] [address] 04/28/2020 12:38:23 04/28/2020 13:34:08 Menopausal syndrome [id number] N95.1 See labs faxed over in chart. [...] migraine w/ visual changes, breast cancer dx, [place]/stroke, DVT/PE, Endometria l cancer. Please contact office [...] counseling and review of plan of care. [id number] [facility] [address],[facility] [place] [address] 07/20/2020 15:13:15 07/20/2020 16:14:06 Vaginitis 01156898 N76.0 [id number] Medina Larsen , [facility] [address],[place] [address] 07/28/2020 13:03:24 07/28/2020 14:05:19 Gynecologic examination 59339174 Z01.419 Suggested Calcium with Vitamin D 1200-1500m g daily. Patient advised to get an annual flu shot in the fall and she could obtain at [facility] or [facility] clinic. 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 All staff wore face coverings during this encounter, as well as provided additional cleaning and sanitizing of all surfaces, including countertop s, pens, chairs, door handles, light switches, etc, prior to and following the patient s visit. Menopausal flushing 1984 76306 N95.1 If bijuva is not covered at adequate cost by insurance it is okay to send Estradiol 1mg & prometrium 100mg daily generics. Vaginitis 36802362 N76.0 Doing well from last vaginitis visit but if needs 1 more RF of levofloxac in this is okay; but if no improvemen t and recurrs needs to come for appt. [id number] Sandie Panchal [facility] [address],[place] [address] 09/23/2020 13:48:54 09/23/2020 14:44:28 Mycoplasma species or Ureaplasma urealyticum [id number] R89.5 culture sent Atrophic vaginitis 50777 000 N95.2 [id number] [facility] [address],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 All staff wore face coverings during this encounter, as well as provided additional cleaning and sanitizing of all surfaces, including countertop s, pens, chairs, door handles, light switches, etc, prior to and following the patient s visit. Sexually t ransmitted infectious disease 2548673 A64 Will update a complete std screen but mainly interested in if any positive HSV results. [id number] Medina Larsen , [facility] [address] [address] 09/07/2021 12:44:38 09/07/2021 13:41:38 Gynecologic examination 11934985 Z01.419 Suggested Calcium with Vitamin D 1200-1500m g daily. Patient advised to get an annual flu shot in the fall and she could obtain at [facility] or [facility]. 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 All staff wore face coverings during this encounter, as well as provided additional cleaning and sanitizing of all surfaces, including countertop s, pens, chairs, door handles, light switches, etc, prior to and following the patient s visit. Screening for malignant neoplasm of breast 128398984 Z12.39 N64.4 Skin irritation 51634250 7 L30.9 [id number] Medina Larsen [facility] [address] [address] 10/11/2022 11:49:49 10/11/2022 14:23:14 Gynecologic examination 13750195 Z01.419 Suggested Calcium with Vitamin D 1200-1500m g daily. Patient advised to get an annual flu shot in the fall and she could obtain at [facility] or [facility] care clinic. Also to obtain TDap vaccinatio [...] Routine LabsMammo ordered Hormone re placement therapy 121397459 Z79.890 Counseled on the following: Females >10yrs [...] Estradiol 2mg has kept her feeling well. [id number] Medina Larsen , [facility] [address] [address] 10/31/2023 13:42:35 10/31/2023 14:28:41 Gynecologic examination 48512986 Z01.419 Suggested Calcium with Vitamin D 1200-1500m g daily. Patient advised to get an annual flu shot in the fall and she could obtain at [facility] or [facility] care clinic. Also to obtain TDap vaccinatio [...] Screen naRoutine Labs PCPMammo ordered Menopausal symptom 10489 002 N95.1 Happy on HRTD/C progestero ne since she had a hysterecto my and now has no uterus.Sta y on :Estradiol 2mg.RF sent to requested pharmacy Body mass index 25-29 - overweight 592342193 Z68.28 Let us knowTried other Contrave/p hentermine [...] updated labs from PCP Screening mammography 24 071707 Z12.31 Skin irritation 31936498 7 L30.9 Uses under breasts prn [id number] Scar Ye MD [place] [address] [address] 11/22/2023 15:13:11 11/22/2023 16:34:19 Obesity 779122071 E66.9 This patient is a 53-year-ol d [...] None Recorded Advance Directives Directive N: Payers Insurance Date Sequence Insurance Name Policy Number Policy Nuñez Covered Member ID Nuñez Member ID Guarantor Name 11/25/2023 1 [facility] [id number] Ashley Palmer [id number] Ashley Palmer 11/21/2023 1 [facility] PRIOR TO 12/29/2020 (MEDICAID REPLACEMENT - HMO) Ashley Palmer [id number] Ashley Palmer 11/21/2023 1 [facility] ON OR AFTER 12/29/20 (MEDICAID REPLACEMENT - HMO) Ashley Palmer [id number] Ashley Palmer Notes Date Note Type Note Provider Name and Address Organization Details Recorded Time 1 text/html Vaginal/Vulvar ProblemReported by PatientVaginal irritation.Mainly externalBilaterally lower labia majora regionItchingOccurs monthlyHx of hysterectomyIs on HRT & Premarin now; but states this was occurring prior to these therapies. Neg d/c, odorNot SA x 2mosNeg GI issuesNeg recent illnessNeg Urinary issuesROS as noted in the HPI Medina Larsen [facility] [address], [place], [address], [facility] 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 For vaginal bleeding, patient reportshistory of menopause having occurredandno history of post menopausal bleeding. For urinary symptoms, patient reportsno hematuria,no incontinence,no nocturia, andno urinary frequency. For vulva, patient reportsno genital lesionandno vulvar atrophy. For vagina, patient reportsnormal vaginal dischargeandno vaginal atrophy.Breast symptomsFor breast, patient reportsbreast pain (right side. ??if there is a nodule there or not?)but reportsno breast lumpandno nipple discharge.Psychological symptomsFor sexual complaints, patient reportsno sexual complaints. For psychological symptoms, patient reportsno depressionandno anxiety.Preventative measuresFor preventive measures, patient reportsencourage regular mammograms starting age 40,encourage self breast examination,encourage regular exercise,encourage no tobacco use,needs to schedule mammogram, andhistory of recent colonoscopy. Medina Larsen [facility] [address], [place], [address], [facility] 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 For vaginal bleeding, patient reportshistory of menopause having occurredandno history of post menopausal bleeding. For urinary symptoms, patient reportsno hematuria,no incontinence,no nocturia, andno urinary frequency. For vulva, patient reportsno genital lesionandno vulvar atrophy. For vagina, patient reportsnormal vaginal dischargeandno vaginal atrophy.Breast symptomsFor breast, patient reportsno breast lump,no nipple discharge, andno breast pain.Psychological symptomsFor sexual complaints, patient reportsno sexual complaints. For psychological symptoms, patient reportsno depressionandno anxiety.Preventative measuresFor preventive measures, patient reportsencourage regular mammograms starting age 40,encourage self breast examination,encourage regular exercise,encourage no tobacco use,needs to schedule mammogram, andhistory of recent colonoscopy. Medina Larsen [facility] [address], [place], [address], [facility] 10/11/2022 13:53:08 4 text/html Annual Medical Radiation Tech Post-MenopausalReported by PatientGenitourinary symptomsFor menopausal symptoms, patient reportsno menopausal symptomsandnormal vaginal lubrication. For vaginal bleeding, patient reportshistory of menopause having occurredandno history of post menopausal bleeding. For urinary symptoms, patient reportsno hematuria,no incontinence,no nocturia, andno urinary frequency. For vulva, patient reportsno genital lesionandno vulvar atrophy. For vagina, patient reportsnormal vaginal dischargeandno vaginal atrophy.Breast symptomsFor breast, patient reportsno breast lump,no nipple discharge, andno breast pain.Psychological symptomsFor sexual complaints, patient reportsno sexual complaints. For psychological symptoms, patient reportsno depressionandno anxiety.Preventative measuresFor preventive measures, patient reportsencourage regular mammograms starting age 40,encourage self breast examination,encourage regular exercise,encourage no tobacco use,needs to schedule mammogram, andhistory of recent colonoscopy. Medina Larsen [facility] [address], [place], [address], [facility] 10/31/2023 14:26:53 4 text/html This [...] medications in detail. We spent 40 minutes [id number]. More than 50% was counseling. We agreed to treat with phentermine and topiramate. She will follow up in 3 months. Scar Ye MD [address], [place], [address], [facility] 11/22/2023 16:34:04 OBGyn Episode Ob Episode Information Episode Created Date Number of Fetuses Patient Bloodtype Patient rh Status Prepregnancy Weight lbs Domestic Partner Domestic Partner Phone Father Name Stabilizer Operator Status 04/28/20 20 1 CLOSED Fetus Data [...] Post Complications Tubal Sterilization Discharge Date Comments 199 5 40 Discharge Information Feeding Method Contraceptive Method Maternal HG B and HCT Levels Ob Episode Information Episode Created Date Number of Fetuses Patient Bloodtype Patient rh Status Prepregnancy Weight lbs Domestic Partner Domestic Partner Phone Father Name Stabilizer Operator Status 04/28/20 20 1 CLOSED Fetus Data [...] Domestic Partner Domestic Partner Phone Father Name Stabilizer Operator Status 04/28/20 20 1 CLOSED Fetus Data [...]
--- OUTSIDE RECORDS SUMMARY | 2025-05-06 16:25 | XMS_ITS | Encounter Summary ---
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
--- OUTSIDE RECORDS SUMMARY | 2025-05-06 16:26 | XMS_ITS | Patient Health Record ---
Author Organization [facility] [employer] [facility] Address [address] [facility] [address] [place] [address] Support Name Relationship Address Phone DAMIR HARRELL Emergency Contact Unknown Unavailab chris YOEL BRUMFIELD Guarantor Unknown [phone] Allergies No Known Allergies Reason For Referral No Information Medications Medication SIG (Take, Route, Frequency, Duration) Notes Start Date End Date Status Lissette-D Allergy & Congestion 60-120 MG Tablet Extended Release 12 Hour TAKE 1 TABLET BY MOUTH EVERY 12 HOURS NEEDED FOR CONGESTION Oral; Duration: 10 Days Active Hydroxychloroquine Sulfate 200 MG Tablet TAKE 2 TABLETS BY MOUTH TWICE DAILY Oral; Duration: 30 Days Active Levothyroxine Sodium 50 MCG Tablet TAKE 1 TABLET BY MOUTH DAILY Oral; Duration: 90 Days Active Omeprazole 20 MG Capsule Delayed Release TAKE 1 CAPSULE BY MOUTH TWICE DAILY Oral; Duration: 90 Days Active hydrOXYzine HCl 25 MG Tablet TAKE 1 TABLET BY MOUTH TWICE DAILY NEEDED FOR ITCHING Oral; Duration: 15 Days Active Escitalopram Oxalate 10 MG Tablet 1 tablet at bedtime Oral Once a day; Duration: 90 days Active Phentermine HCl 30 MG Capsule TAKE 1 CAPSULE BY MOUTH EVERY DAY Oral; Duration: 30 Days Active DULoxetine HCl 60 MG Capsule Delayed Release Particles 1 capsule Oral Once a day; Duration: 90 days d/c 30mg caps Active Social History Tobacco Use: Social History Observation Description Date Details (start date - stop date) Former Smoker 12/03/1988 - 12/06/1992 Sex Assigned At : Social History Observation Description Sex Assigned At Female Social History Tobacco Use: Social Info Question Answer Notes Tobacco Control (Standard) Tobacco use: Former smoker When did you start smoking? 12/03/1988 When did you stop smoking? 12/06/1992 How long has it been since you last smoked? Greater than 10 years Additional Details Category Social Info Options Details Migrated Social History Migrated Social History Alcohol Intake: Occasional 08/22/2023,Tobacco Years: Former smoker 08/22/2023 Section Notes: Social History Substance Use Do [...] currently employed?: Yes Who is your employer?: [employer] Marriage and Sexuality What is your relationship status?: Single Are you sexually active?: No Do you use protection during sex?: No How many children do you have?: 3 Home and Environment Are there any guns present in your home?: No Advance Directive Do you have an advance directive?: No Do you have a medical power of elementary school reading teacher?: No Social History Substance Use Do you [...] currently employed?: Yes Who is your employer?: [employer] Marriage and Sexuality What is your relationship status?: Single Are you sexually active?: No Do you use protection during sex?: No How many children do you have?: 3 Home and Environment Are there any guns present in your home?: No Advance Directive Do you have an advance directive?: No Do you have a medical power of elementary school reading teacher?: No Problems Problem Type SNOMED Code ICD Code Onset Dates Problem Status W/U Status Risk Notes Problem Mild recurrent major depression (50928100) Major depressive disorder, recurrent, mild (F33.0) 11/14/19 24 Active confirmed Problem Generalized anxiety disorder (93717323) Generalized anxiety disorder (F41.1) 11/14/19 24 Active confirmed Problem Attention deficit hyperactivity disorder (143830000) ADHD (attention deficit hyperactivity disorder), combined type (F90.2) Active confirmed Problem Panic disorder (377671111) Panic attacks (F41.0) Active confirmed Plan Of Treatment No Information Insurance Providers Payer Name Payer Address Payer Phone Subscriber Number Group Number Insured Name Patient Relationship to Insured Coverage Start Date Coverage End Date r [address] [address] [place] [address] [phone] [id number] YOEL BRUMFIELD Self - patient is the insured Medical (General) History Medical History History ICD Code Problems: Attention deficit hyperactivit y disorder, combined type Generalized anxiety disorder Mild recurrent major depression Panic attack Severe recurrent major depression withou t psychotic features , Surgical History Surgery Date(Month/Year) Sinus surgery 08/21/2021 Hysterectomy (47042) 04/30/2018 Appendectomy (73463) 05/28/2012 Other R rotator cuff 05/28/2012
== END 2025-05-06 07:26 | disposition home or self-care (01) ==
LOC: CHSIMG 07:26
PROVIDERS: PCP Nurse Practitioner Family; Visit Provider Nurse Practitioner Family
DX: Z12.31 Encounter for screening mammogram for malignant neoplasm of breast (principal); M25.559 Pain in unspecified hip
CPT/HCPCS: 73521; 77063; 77067